=== PATIENT | female | born 1995 | race Caucasian/White ===

== ENCOUNTER 2023-01-18 12:33 | Inpatient (IN) | payer OTHER, SELFPAY ==
[2023-01-18] VITALS (19 sets, daily range): BP systolic 95–158; BP diastolic 60–79; PULSE 69–98; RESP 16–28; TEMP 36.2–36.7
--- NOTE | 2023-01-18 13:09 | PM.OBPRCVD ---
Procedure events: Meconium Stained Fluid Intrapartal events: Precipitous Labor < 3 hours Induction method: none Delivery augmentation: rupture of membranes (none, membranes ruptured at plus three station revealing meconium stained fluid not particulate) Delivery monitor: external FHT and external uterine Route of delivery: Episiotomy Description: none Laceration description: none Estimated blood loss (mL): 300 Disposition: no change Complications: Fourth baby. Dr. Osuna had patient scheduled for induction this upcoming . States she started contractions at about six am. When she presented to ED she was rushed up to maternity with concern she was delivering. Her initial cervical exam was 6 cm. Patient was experiencing excruciating contractions every 1 to 2 min. She progressed to complete dilation and delivery without epidural in less than 20 min. The infant girl was crying on delivery. She appears to be SGA and there is thick meconium. Peds was called in to evaluate however no acute problem existed. GBS status is not known. Peds to make decision on disposition of infant whose weight is 4 pounds 12 ounces. The placenta has been sent to pathology. The chart has been sent from Dr. Osuna's office. Delivery date: 01/18/23 Gender: female presentation: vertex Placental delivery description: Spontaneous cord description comment: small placenta and thin umbilical cord heart rate - 1 minute: 100 bpm or Greater (APGARS PENDING NURSING EVALUATION HOWEVER INFANT VIGOROUS AND PEDS PRESENT) respiratory effort - 1 minute: Spontaneous/Strong Cry muscle tone - 1 minute: Active Movement reflex response - 1 minute: Prompt Response color - 1 minute: Bluish Hands or Feet total score - 1 minute: 9
[2023-01-18 13:21] LABS: Hematocrit 36.9 % (36.0-48.0); Hemoglobin 12.7 g/dL (12.0-16.0); Mean Corpuscular HGB Conc 34.4 g/dL (29.9-35.2); Mean Corpuscular Hemoglobin 30.5 pg (26.7-34.0); Mean Corpuscular Volume 88.5 fL (81.0-99.0); Platelet Count 305 10^3/uL (150-450); Red Blood Count 4.17 10^6/uL (4.20-5.40); Red Cell Distribution Width 12.9 % (11.0-15.0); White Blood Count 16.9 10^3/uL (4.0-11.0)
--- NOTE | 2023-01-18 13:34 | P.HP_ITS ---
H&P: HPI History of Present Illness Chief complaint: CONTRACTIONS Narrative: ...Dr. Osuna patient. Was to be induced this coming week. presented to ED and delivered within 30 minutes on maternity. Went from initial exam of 6 cm to complete dilation plus two station in less than 20 min. Vertex. AROM on d elivery for thick meconium. Initial heart rate 130's. Review of Systems ROS Status of ROS 10 or more systems reviewed and unremarkable except as noted in history and below Meds Home Medications and Allergies Allergies Allergy/AdvReac Type Severity Reaction Status Date / Time No Known Drug Allergies Allergy Verified 01/18/23 13:37 Exam Constitutional Vital Signs - 24 hr 01/18/23 12:43 01/18/23 13:06 01/18/23 13:22 Pulse Rate 94 H 97 H 74 Blood Pressure 138/76 H 158/77 H 121/60 H Documenting provider has reviewed patient's vital signs: yes Common normals: average body habitus, oriented x3, healthy appearing, alert and well nourished General appearance: in distress (precipitous delivery with no time for epidural ) severe HENMT Common normals: normocephalic and head/scalp atraumatic Eye Common normals: PERRL Chest Common normals: inspection of chest normal Respiratory Common normals: normal respiratory effort Cardio Common normals: regular rate and regular rhythm GI Common normals: soft to palpation and non-tender External Female Exam: normal appearance of the urethra Speculum exam - cervix: cervical os open OB/external & speculum: external exam normal Manual OB Exam: dilated 6 cm, effaced 75% and station +1 Amniotic Fluid: no fluid (but AROM for thick meconium) Back & Pelvis Common normals: no CVA tenderness Extremity Common normals: normal to inspection and full ROM Neuro Common normals: oriented x3, CN's II-XII intact bilaterally, moves all extremities, no focal motor deficits and no sensory deficits noted Sensorium/orientation: awake, alert, oriented to person, oriented to place and oriented to time Speech: speech normal Psych Common normals: mental status grossly normal and thought process normal Results Labs Labs: Short CBC 01/18/23 Range/Units 12:50 WBC 16.9 H (4.0-11.0) 10^3/uL Hgb 12.7 (12.0-16.0) g/dL Hct 36.9 (36.0-48.0) % Plt Count 305 (150-450) 10^3/uL Procedures Procedure Note Date of procedure: 01/18/23 Pre-op diagnosis: term in labor
[2023-01-18 14:00] LABS: Basophils Percent Auto 0.3 % (0.2-2.0); Eosinophils Absolute Auto 0.1 10^3/uL (0.0-0.7); Eosinophils Percent Auto 0.3 % (0.9-7.0); Hematocrit 33.4 % (36.0-48.0); Hemoglobin 11.3 g/dL (12.0-16.0); Immature Granulocytes Abs Auto 0.12 10^3/uL (0.00-0.03); Immature Granulocytes Pct Auto 0.8 % (0.0-0.5); Lymphocytes Absolute Auto 1.3 10^3/uL (1.2-3.8); Lymphocytes Percent Auto 8.3 % (20.5-60.0); Mean Corpuscular HGB Conc 33.8 g/dL (29.9-35.2); Mean Corpuscular Hemoglobin 30.1 pg (26.7-34.0); Mean Corpuscular Volume 89.1 fL (81.0-99.0); Mean Platelet Volume 9.6 fL (9.5-13.5); Monocytes Absolute Auto 0.5 10^3/uL (0.3-0.8); Monocytes Percent Auto 3.1 % (1.7-12.0); Neutrophils Absolute Auto 13.3 10^3/uL (1.4-6.5); Neutrophils Percent Auto 87.2 % (43.0-75.0); Platelet Count 239 10^3/uL (150-450); Red Blood Count 3.75 10^6/uL (4.20-5.40); Red Cell Distribution Width 12.9 % (11.0-15.0); White Blood Count 15.3 10^3/uL (4.0-11.0)
[2023-01-18] MEDS: IBUPROFEN 600 MG TABLET PO (14:37)
--- NOTE | 2023-01-18 14:40 | PC.NURSE ---
MEDICATED WITH MOTRIN 600 MG OFR BACK PAIN 6 SCORE
--- NOTE | 2023-01-18 19:22 | W.PC.ACHO ---
Registration Status: ADM IN Primary Language: Pakistani Preferred Language: Pakistani Active Medications Generic Name Dose Route Start Last Admin Trade Name Freq PRN Reason Stop Dose Admin Acetaminophen 650 mg 01/18/23 13:26 Acetaminophen 325 Mg Tablet PO Q6H PRN Mild Pain Al Hydroxide/Mg Hydroxide 2,400 mg 01/18/23 13:31 Magnesium Hydroxide 2,400 Mg/10 Ml Oral.Susp PO Q6H PRN Dyspepsia Benzocaine/Menthol 1 applic 01/18/23 13:26 Benzocaine/Menthol 85 Gram Bottle TOPICAL ONCE PRN Pain Carboprost Tromethamine 250 mcg 01/18/23 13:08 Carboprost Tromethamine 250 Mcg/Ml 1 Ml Vial IM Q15M PRN Bleeding Docusate Sodium 100 mg 01/19/23 09:00 Docusate Sodium 100 Mg Capsule PO BID BEN Oxytocin 10 unit/ Sodium 501 mls @ 6.012 mls/hr 01/18/23 13:15 Chloride IV Q24H BEN 2 MILLIUNIT/MIN Oxytocin 20 unit/ Sodium 1,002 mls @ 125 mls/hr 01/18/23 13:15 01/18/23 14:12 Chloride IV 01/18/23 21:15 1 ml/hr ONCE ONE 1 mls/hr Administration Protocol Ibuprofen 600 mg 01/18/23 13:26 01/18/23 14:37 Ibuprofen 600 Mg Tablet PO 600 mg Q6H PRN Administration Moderate Pain Methylergonovine Maleate 0.2 mg 01/18/23 13:08 Methylergonovine Maleate 0.2 Mg Tablet PO Q4H PRN Uterine Contractility/Contract Misoprostol 600 mcg 01/18/23 13:08 Misoprostol 100 Mcg Tablet PO ONCE PRN Uterine Bleeding Misoprostol 800 mcg 01/18/23 13:08 Misoprostol 100 Mcg Tablet SL ONCE PRN Uterine Bleeding Misoprostol 1,000 mcg 01/18/23 13:08 Misoprostol 100 Mcg Tablet DC ONCE PRN Uterine Bleeding Nalbuphine HCl 10 mg 01/18/23 13:08 Nalbuphine Hcl 10 Mg/Ml Ampule IV Q3H PRN Pain Ondansetron HCl 4 mg 01/18/23 13:08 Ondansetron Pf 4 Mg/2 Ml Vial IV Q6H PRN Nausea And Vomiting Ondansetron HCl 4 mg 01/18/23 13:08 Ondansetron 4 Mg Rapdis Tablet SL Q6H PRN Nausea And Vomiting Oxytocin 10 unit 01/18/23 13:08 Oxytocin 100 Unit/10 Ml Vial IM ONCE PRN Uterine Bleeding Senna 17.2 mg 01/18/23 20:00 Sennosides 8.6 Mg Tablet PO QHS PRN Constipation Simethicone 80 mg 01/18/23 13:31 Simethicone 80 Mg Tab.Chew PO QID PRN Abdominal Distention Temazepam 15 mg 01/18/23 20:00 Temazepam 15 Mg Capsule PO BEDTIME PRN Sleep Witch Keyla/Glycerin 1 each 01/18/23 13:26 Glycerin/Witch Keyla 1 Each Jar TOPICAL ONCE PRN Pain Diet Category Date Time Status Regular Consistency Diet Diet 01/18/23 Lunch Active IV Insertion/Site Date of IV Line Insertion [20g 01/18/23 left Wrist] IV Insertion Time [20g left 12:50 Wrist] Neurology Patient orientation (short person,place,time,situation list) Sugey coma scale total score 15 Respiratory Oxygen Delivery Method Room Air
[2023-01-18 19:29] LABS: Amphetamine Screen Urine NEGATIVE (NEGATIVE); Barbiturates Screen Urine NEGATIVE (NEGATIVE); Benzodiazepines Screen Urine NEGATIVE (NEGATIVE); Buprenorphine Screen Urine NEGATIVE (NEGATIVE); Cannabinoid Screen Urine NEGATIVE (NEGATIVE); Cocaine Screen Urine NEGATIVE (NEGATIVE); Methadone Screen Urine NEGATIVE (NEGATIVE); Methamphetamines Screen Urine NEGATIVE (NEGATIVE); Opiate Screen Urine NEGATIVE (NEGATIVE); Oxycodone Screen Urine NEGATIVE (NEGATIVE); Phencyclidine Screen Urine NEGATIVE (NEGATIVE); Tricyclic Antidepressant Urine NEGATIVE (NEGATIVE)
--- NOTE | 2023-01-18 19:30 | W.PC.ACHO ---
Registration Status: ADM IN Primary Language: Chadian Preferred Language: Chadian Report received from Merissa MELENDEZ. bedside report completed. Active Medications Generic Name Dose Route Start Last Admin Trade Name Freq PRN Reason Stop Dose Admin Acetaminophen 650 mg 01/18/23 13:26 Acetaminophen 325 Mg Tablet PO Q6H PRN Mild Pain Al Hydroxide/Mg Hydroxide 2,400 mg 01/18/23 13:31 Magnesium Hydroxide 2,400 Mg/10 Ml Oral.Susp PO Q6H PRN Dyspepsia Benzocaine/Menthol 1 applic 01/18/23 13:26 Benzocaine/Menthol 85 Gram Bottle TOPICAL ONCE PRN Pain Carboprost Tromethamine 250 mcg 01/18/23 13:08 Carboprost Tromethamine 250 Mcg/Ml 1 Ml Vial IM Q15M PRN Bleeding Docusate Sodium 100 mg 01/19/23 09:00 Docusate Sodium 100 Mg Capsule PO BID BEN Oxytocin 10 unit/ Sodium 501 mls @ 6.012 mls/hr 01/18/23 13:15 Chloride IV Q24H BEN 2 MILLIUNIT/MIN Oxytocin 20 unit/ Sodium 1,002 mls @ 125 mls/hr 01/18/23 13:15 01/18/23 14:12 Chloride IV 01/18/23 21:15 1 ml/hr ONCE ONE 1 mls/hr Administration Protocol Ibuprofen 600 mg 01/18/23 13:26 01/18/23 14:37 Ibuprofen 600 Mg Tablet PO 600 mg Q6H PRN Administration Moderate Pain Methylergonovine Maleate 0.2 mg 01/18/23 13:08 Methylergonovine Maleate 0.2 Mg Tablet PO Q4H PRN Uterine Contractility/Contract Misoprostol 600 mcg 01/18/23 13:08 Misoprostol 100 Mcg Tablet PO ONCE PRN Uterine Bleeding Misoprostol 800 mcg 01/18/23 13:08 Misoprostol 100 Mcg Tablet SL ONCE PRN Uterine Bleeding Misoprostol 1,000 mcg 01/18/23 13:08 Misoprostol 100 Mcg Tablet PA ONCE PRN Uterine Bleeding Nalbuphine HCl 10 mg 01/18/23 13:08 Nalbuphine Hcl 10 Mg/Ml Ampule IV Q3H PRN Pain Ondansetron HCl 4 mg 01/18/23 13:08 Ondansetron Pf 4 Mg/2 Ml Vial IV Q6H PRN Nausea And Vomiting Ondansetron HCl 4 mg 06/09/23 13:08 Ondansetron 4 Mg Rapdis Tablet SL Q6H PRN Nausea And Vomiting Oxytocin 10 unit 01/18/23 13:08 Oxytocin 100 Unit/10 Ml Vial IM ONCE PRN Uterine Bleeding Senna 17.2 mg 01/18/23 20:00 Sennosides 8.6 Mg Tablet PO QHS PRN Constipation Simethicone 80 mg 01/18/23 13:31 Simethicone 80 Mg Tab.Chew PO QID PRN Abdominal Distention Temazepam 15 mg 01/18/23 20:00 Temazepam 15 Mg Capsule PO BEDTIME PRN Sleep Witch Keyal/Glycerin 1 each 01/18/23 13:26 Glycerin/Witch Keyla 1 Each Jar TOPICAL ONCE PRN Pain Diet Category Date Time Status Regular Consistency Diet Diet 01/18/23 Lunch Active IV Insertion/Site Date of IV Line Insertion [20g 01/18/23 left Wrist] IV Insertion Time [20g left 12:50 Wrist] Neurology Patient orientation (short person,place,time,situation list) [place]or coma scale total score 15 Respiratory Oxygen Delivery Method Room Air
--- NOTE | 2023-01-18 21:10 | PC.NURSE ---
Pt states her bleeding is compared to a heavy period .
[2023-01-19 00:07] VITALS: BP 105/52; PULSE 78
[2023-01-19 00:10] VITALS: BP 105/52; PULSE 78; RESP 16; TEMP 36.2
--- NOTE | 2023-01-19 00:21 | PC.NURSE ---
Pt express no pain present. Pt denies needs for interventions.
[2023-01-19 04:40] VITALS: BP 102/61; PULSE 63; RESP 14; TEMP 36
[2023-01-19 04:52] VITALS: BP 102/61; PULSE 63
[2023-01-19 06:35] LABS: Basophils Absolute Auto 0.1 10^3/uL (0.0-0.1); Basophils Percent Auto 0.5 % (0.2-2.0); Eosinophils Absolute Auto 0.3 10^3/uL (0.0-0.7); Eosinophils Percent Auto 2.2 % (0.9-7.0); Hematocrit 27.1 % (36.0-48.0); Hemoglobin 9.3 g/dL (12.0-16.0); Immature Granulocytes Pct Auto 0.8 % (0.0-0.5); Lymphocytes Absolute Auto 3.2 10^3/uL (1.2-3.8); Lymphocytes Percent Auto 24.7 % (20.5-60.0); Mean Corpuscular HGB Conc 34.3 g/dL (29.9-35.2); Mean Corpuscular Hemoglobin 30.7 pg (26.7-34.0); Mean Corpuscular Volume 89.4 fL (81.0-99.0); Mean Platelet Volume 9.9 fL (9.5-13.5); Monocytes Absolute Auto 0.8 10^3/uL (0.3-0.8); Monocytes Percent Auto 6.6 % (1.7-12.0); Neutrophils Absolute Auto 8.3 10^3/uL (1.4-6.5); Neutrophils Percent Auto 65.2 % (43.0-75.0); Platelet Count 215 10^3/uL (150-450); Red Blood Count 3.03 10^6/uL (4.20-5.40); Red Cell Distribution Width 13.1 % (11.0-15.0); White Blood Count 12.7 10^3/uL (4.0-11.0)
--- NOTE | 2023-01-19 07:12 | W.PC.ACHO ---
Registration Status: ADM IN Primary Language: Prydeinig Preferred Language: Prydeinig Report given to Yumiko Hess RN at 0705. Active Medications Generic Name Dose Route Start Last Admin Trade Name Freq PRN Reason Stop Dose Admin Acetaminophen 650 mg 01/18/23 13:26 Acetaminophen 325 Mg Tablet PO Q6H PRN Mild Pain Al Hydroxide/Mg Hydroxide 2,400 mg 01/18/23 13:31 Magnesium Hydroxide 2,400 Mg/10 Ml Oral.Susp PO Q6H PRN Dyspepsia Benzocaine/Menthol 1 applic 01/18/23 13:26 Benzocaine/Menthol 85 Gram Bottle TOPICAL ONCE PRN Pain Carboprost Tromethamine 250 mcg 01/18/23 13:08 Carboprost Tromethamine 250 Mcg/Ml 1 Ml Vial IM Q15M PRN Bleeding Celecoxib 40 mg 01/19/23 07:00 Citalopram Hydrobromide 20 Mg Tablet PO QD BEN Docusate Sodium 100 mg 01/19/23 09:00 Docusate Sodium 100 Mg Capsule PO BID BEN Oxytocin 10 unit/ Sodium 501 mls @ 6.012 mls/hr 01/18/23 13:15 Chloride IV Q24H BEN 2 MILLIUNIT/MIN Ibuprofen 600 mg 01/18/23 13:26 01/18/23 14:37 Ibuprofen 600 Mg Tablet PO 600 mg Q6H PRN Administration Moderate Pain Methylergonovine Maleate 0.2 mg 01/18/23 13:08 Methylergonovine Maleate 0.2 Mg Tablet PO Q4H PRN Uterine Contractility/Contract Misoprostol 600 mcg 01/18/23 13:08 Misoprostol 100 Mcg Tablet PO ONCE PRN Uterine Bleeding Misoprostol 800 mcg 01/18/23 13:08 Misoprostol 100 Mcg Tablet SL ONCE PRN Uterine Bleeding Misoprostol 1,000 mcg 01/18/23 13:08 Misoprostol 100 Mcg Tablet MN ONCE PRN Uterine Bleeding Nalbuphine HCl 10 mg 01/18/23 13:08 Nalbuphine Hcl 10 Mg/Ml Ampule IV Q3H PRN Pain Ondansetron HCl 4 mg 01/18/23 13:08 Ondansetron Pf 4 Mg/2 Ml Vial IV Q6H PRN Nausea And Vomiting Ondansetron HCl 4 mg 01/18/23 13:08 Ondansetron 4 Mg Rapdis Tablet SL Q6H PRN Nausea And Vomiting Oxytocin 10 unit 01/18/23 13:08 Oxytocin 100 Unit/10 Ml Vial IM ONCE PRN Uterine Bleeding Senna 17.2 mg 01/18/23 20:00 Sennosides 8.6 Mg Tablet PO QHS PRN Constipation Simethicone 80 mg 01/18/23 13:31 Simethicone 80 Mg Tab.Chew PO QID PRN Abdominal Distention Temazepam 15 mg 01/18/23 20:00 Temazepam 15 Mg Capsule PO BEDTIME PRN Sleep Witch Keyla/Glycerin 1 each 01/18/23 13:26 Glycerin/Witch Keyla 1 Each Jar TOPICAL ONCE PRN Pain Diet Category Date Time Status Regular Consistency Diet Diet 01/18/23 Lunch Active IV Insertion/Site Date of IV Line Insertion [20g 01/18/23 left Wrist] IV Insertion Time [20g left 12:50 Wrist] Neurology Patient orientation (short person,place,time,situation list) Patient orientation (short person,place,time,situation list) Patient orientation (short person,place,time,situation list) Patient orientation (short person,place,time,situation list) Jenner coma scale total score 15 Respiratory Oxygen Delivery Method Room Air Oxygen Delivery Method Room Air Oxygen Delivery Method Room Air Cardiology Heart Sounds Strong,Regular Heart Sounds Strong,Regular Heart Sounds Strong,Regular Bowels Bowel Pattern No Bowel Movement Bowel Pattern No Bowel Movement Bowel Pattern No Bowel Movement
[2023-01-19 08:09] VITALS: BP 115/58; PULSE 71
[2023-01-19] MEDS: DOCUSATE SODIUM 100 MG CAPSULE PO (08:17)
[2023-01-19] MEDS: CITALOPRAM HYDROBROMIDE 20 MG TABLET 40 MG PO (08:17)
--- NOTE | 2023-01-19 11:37 | P.OBPN_ITS ---
PATIENT IS A SMOKER WHICH IS LIKELY WHY SHE IS REQUESTING DISCHARGE POD 1 EVEN THOUGH GIRL NOT READY FOR DISCHARGE OB - PN: Subj Subjective Interval history: S/P PRECIPITOUS VAGINAL DELIVERY WITHOUT COMPLICATION Patient comments: no complaints, tolerating diet and flatus present status: doing well and bottle Exam Constitutional Vital Signs - 24 hr 01/18/23 12:43 01/18/23 13:06 01/18/23 13:22 Temperature Pulse Rate 94 H 97 H 74 Respiratory Rate Blood Pressure 138/76 H 158/77 H 121/60 H Blood Pressure [Left Arm] Oxygen Delivery Method 01/18/23 13:38 01/18/23 13:52 01/18/23 14:07 Temperature Pulse Rate 78 90 74 Respiratory Rate Blood Pressure 108/63 106/67 106/65 Blood Pressure [Left Arm] Oxygen Delivery Method 01/18/23 14:22 01/18/23 14:37 01/18/23 14:52 Temperature Pulse Rate 75 75 73 Respiratory Rate Blood Pressure 121/72 H 125/77 H 123/75 H Blood Pressure [Left Arm] Oxygen Delivery Method 01/18/23 15:07 01/18/23 15:22 01/18/23 15:37 Temperature Pulse Rate 69 70 85 Respiratory Rate Blood Pressure 125/79 H 106/65 106/61 Blood Pressure [Left Arm] Oxygen Delivery Method 01/18/23 15:52 01/18/23 16:07 01/18/23 21:01 Temperature Pulse Rate 73 90 83 Respiratory Rate Blood Pressure 115/61 112/68 95/62 Blood Pressure [Left Arm] Oxygen Delivery Method 01/19/23 00:07 01/18/23 14:15 01/18/23 12:33 Temperature 98.0 F 97.9 F Pulse Rate 78 98 H Respiratory Rate 26 H 26 H Blood Pressure 105/52 L Blood Pressure [Left Arm] Oxygen Delivery Method Room Air 01/18/23 13:15 01/18/23 20:45 01/18/23 20:45 Temperature 97.9 F 97.2 F L Pulse Rate 83 Respiratory Rate 28 H 16 16 Blood Pressure Blood Pressure [Left Arm] 95/62 Oxygen Delivery Method 01/19/23 00:10 01/19/23 00:10 01/19/23 04:52 Temperature 97.2 F L Pulse Rate 78 63 Respiratory Rate 16 16 Blood Pressure 102/61 Blood Pressure [Left Arm] 105/52 L Oxygen Delivery Method Room Air 01/19/23 08:09 01/19/23 04:40 01/19/23 04:40 Temperature 96.8 F L Pulse Rate 71 63 Respiratory Rate 14 14 Blood Pressure 115/58 L Blood Pressure [Left Arm] 102/61 Oxygen Delivery Method Room Air Documenting provider has reviewed patient's vital signs: yes Common normals: no apparent distress, oriented x3, no limitations, healthy appearing, alert and well nourished General appearance: cooperative and comfortable HENMT Common normals: normocephalic and head/scalp atraumatic Eye Common normals: PERRL and conjunctivae normal Neck & C-Spine Common normals: full ROM and supple Chest Common normals: inspection of chest normal Respiratory Common normals: normal respiratory effort Cardio Common normals: regular rate and regular rhythm GI Common normals: Normal to inspection, nondistended, normoactive bowel sounds present and soft to palpation Common normals: no CVA tenderness and external appearance normal Manual OB Exam: deferred Extremity Common normals: normal to inspection and full ROM Neuro Common normals: oriented x3, CN's II-XII intact bilaterally, no focal motor deficits and no sensory deficits noted Psych Common normals: mental status grossly normal, thought process normal, cooperative and affect normal Results Labs Labs: Short CBC 01/18/23 01/18/23 01/19/23 Range/Units 12:50 13:54 06:20 WBC 16.9 H 15.3 H 12.7 H (4.0-11.0) 10^3/uL Hgb 12.7 11.3 L 9.3 L (12.0-16.0) g/dL Hct 36.9 33.4 L 27.1 L (36.0-48.0) % Plt Count 305 239 215 (150-450) 10^3/uL Additional Findings Additional findings: NA OB - PN: A/P Assessment and Plan (1) Vaginal delivery: Plan S/P PRECIPITOUS DELIVERY OF SGA BABY AT TERM. NO PREINEAL LACERATION. BABY DOING WELL. BOTTLE FEEDING. NORMAL LOCHIA. EATING, AMBULATING AND ELIMINATING NORMALLY. OFFERRING NO COMPLAINTS. NEEDS TO WEAR SPORTS BRA / TO PREVENT MILK FROM COMING IN. ROUTINE POST CARE. Plan - Vaginal Delivery day: 1 Plan: routine care, discharge home and follow up 6 weeks Comment: S/P PRECIPITOUS VAGINAL DELIVERY, NO COMPLICATIONS Time Spent with Patient Time: Total time spent is greater than 50% in coordination of care (as documented) at patient's floor/unit and/or counseling patient: Total time spent with greater than 50% in coordination of care (as documented) at patient's floor/unit and/or counseling patient: less than 15 minutes Assessment and Plan (1) Vaginal delivery: Plan S/P PRECIPITOUS DELIVERY OF SGA BABY AT TERM. NO PREINEAL LACERATION. BABY DOING WELL. BOTTLE FEEDING. NORMAL LOCHIA. EATING, AMBULATING AND ELIMINATING NORMALLY. OFFERRING NO COMPLAINTS. NEEDS TO WEAR SPORTS BRA 04/03 TO PREVENT MILK FROM COMING IN. ROUTINE POST CARE. Additional Plan Induction method: none Plan: other (REQUESTS DISCHARGE)
--- NOTE | 2023-01-19 12:12 | P.DS_ITS ---
DS: Providers Provider Date of admission: 01/18/23 12:33 Primary care physician: Non-Staff Physician, Admitting clinician: Faviola Neal Attending physician on admission: Faviola Neal Attending physician on discharge: Faviola Neal Discharging clinician: Faviola Neal Anticipated date of discharge: 01/19/23 DS: Diagnosis Discharge Diagnosis (1) Labor abnormality, antepartum: Assessment and plan: PRESENTED TO MATERNITY AT 6 CM AND DELIVERED PRECIPITOUSLY WITHIN THE NEXT 20 MINUTES AT TERM OF SGA BABY FEMALE DOING WELL Plan PATIENT REQUESTING TO BE DISCHARGED, (SMOKER) EVEN THOUGH BABY NOT READY FOR DISCHARGE DS: Summary Hospital Course Hospital Course: UNCOMPLICATED Time spent discussing smoking cessation with patient: 3 to 10 minutes Status at Discharge Cognitive/behavioral status at discharge: NORMAL UNDERSTANDING, ALL QUESTIONS ANSWERED WITH UNDERSTANDING Functional status at discharge: independent ambulation Time Spent with Patient Time attestation: Total time spent providing and/or coordinating discharge services: Time spent: less than 30 minutes Specific discharge activities: PELVIC REST FOR SIX WEEKS, WALKING ONLY FORM OF EXERCISE FOR SIX WEEKS, CALL FOR PROBLEM OR CONCERN, NO SCIPTS NEEDED, AWARE OF HAZARDS OF TOBACCO USE, SPORTS BRA ON 04/03 SO MILK DOES NOT COME IN, SCHEDULE POST EXAM FOR SIX WEEKS FROM DELIVERY Exam Narrative Exam Narrative: S/P UNCOMPLICATED PRECIPITOUS VAGINAL DELIVERY WITHOUT COMPLICATION Constitutional Vital Signs - 24 hr 01/18/23 12:43 01/18/23 13:06 01/18/23 13:22 Temperature Pulse Rate 94 H 97 H 74 Respiratory Rate Blood Pressure 138/76 H 158/77 H 121/60 H Blood Pressure [Left Arm] Oxygen Delivery Method 01/18/23 13:38 01/18/23 13:52 01/18/23 14:07 Temperature Pulse Rate 78 90 74 Respiratory Rate Blood Pressure 108/63 106/67 106/65 Blood Pressure [Left Arm] Oxygen Delivery Method 01/18/23 14:22 01/18/23 14:37 01/18/23 14:52 Temperature Pulse Rate 75 75 73 Respiratory Rate Blood Pressure 121/72 H 125/77 H 123/75 H Blood Pressure [Left Arm] Oxygen Delivery Method 01/18/23 15:07 01/18/23 15:22 01/18/23 15:37 Temperature Pulse Rate 69 70 85 Respiratory Rate Blood Pressure 125/79 H 106/65 106/61 Blood Pressure [Left Arm] Oxygen Delivery Method 01/18/23 15:52 01/18/23 16:07 01/18/23 21:01 Temperature Pulse Rate 73 90 83 Respiratory Rate Blood Pressure 115/61 112/68 95/62 Blood Pressure [Left Arm] Oxygen Delivery Method 01/19/23 00:07 01/18/23 14:15 01/18/23 12:33 Temperature 98.0 F 97.9 F Pulse Rate 78 98 H Respiratory Rate 26 H 26 H Blood Pressure 105/52 L Blood Pressure [Left Arm] Oxygen Delivery Method Room Air 01/18/23 13:15 01/18/23 20:45 01/18/23 20:45 Temperature 97.9 F 97.2 F L Pulse Rate 83 Respiratory Rate 28 H 16 16 Blood Pressure Blood Pressure [Left Arm] 95/62 Oxygen Delivery Method 01/19/23 00:10 01/19/23 00:10 01/19/23 04:52 Temperature 97.2 F L Pulse Rate 78 63 Respiratory Rate 16 16 Blood Pressure 102/61 Blood Pressure [Left Arm] 105/52 L Oxygen Delivery Method Room Air 01/19/23 08:09 01/19/23 04:40 01/19/23 04:40 Temperature 96.8 F L Pulse Rate 71 63 Respiratory Rate 14 14 Blood Pressure 115/58 L Blood Pressure [Left Arm] 102/61 Oxygen Delivery Method Room Air Documenting provider has reviewed patient's vital signs: yes Common normals: no apparent distress, oriented x3, no limitations, healthy appearing, alert and well nourished General appearance: cooperative and comfortable Orientation/consciousness: Yes oriented to person [facility] Common normals: normocephalic and head/scalp atraumatic Eye Common normals: PERRL Neck & C-Spine Common normals: full ROM and supple Chest Common normals: inspection of chest normal Respiratory Common normals: normal respiratory effort Cardio Common normals: regular rate and regular rhythm GI Common normals: Normal to inspection, nondistended, normoactive bowel sounds present, soft to palpation and non-tender Common normals: no CVA tenderness and external appearance normal OB/external & speculum: deferred Manual OB Exam: deferred Back & Pelvis Common normals: no CVA tenderness Extremity Common normals: normal to inspection and full ROM Neuro Common normals: oriented x3 and CN's II-XII intact bilaterally Sensorium/orientation: awake, alert, oriented to person, oriented to place and oriented to time Psych Common normals: mental status grossly normal, thought process normal, cooperative, affect normal and speech normal Attitude: calm DS: Data Data Completed and Pending Completed studies during hospitalization: NA Pending studies at discharge: NA Labs on day of discharge: Labs from last 24 hours 01/19/23 01/18/23 01/18/23 06:20 18:20 13:54 WBC 12.7 H 15.3 H RBC 3.03 L 3.75 L Hgb 9.3 L 11.3 L Hct 27.1 L 33.4 L MCV 89.4 89.1 MCH 30.7 30.1 MCHC 34.3 33.8 RDW 13.1 12.9 Plt Count 215 239 MPV 9.9 9.6 Neut % (Auto) 65.2 87.2 H Lymph % (Auto) 24.7 8.3 L Morton % (Auto) 6.6 3.1 Eos % (Auto) 2.2 0.3 L Baso % (Auto) 0.5 0.3 Neut # (Auto) 8.3 H 13.3 H Lymph # (Auto) 3.2 1.3 Morton # (Auto) 0.8 0.5 Eos # (Auto) 0.3 0.1 Baso # (Auto) 0.1 0.0 Abs Immat Gran (auto) 0.10 H 0.12 H Imm/Tot Granulo (auto) 0.8 H 0.8 H Urine Opiates Screen Negative Ur Buprenorphine Scrn Negative Ur Oxycodone Screen Negative Urine Methadone Screen Negative Ur Propoxyphene Screen Negative Ur Barbiturates Screen Negative U Tricyclic Antidepress Negative Ur Phencyclidine Scrn Negative Ur Amphetamines Screen Negative U Methamphetamines Scrn Negative U Benzodiazepines Scrn Negative Urine Cocaine Screen Negative U Cannabinoids Screen Negative 01/18/23 12:50 WBC 16.9 H RBC 4.17 L Hgb 12.7 Hct 36.9 MCV 88.5 MCH 30.5 MCHC 34.4 RDW 12.9 Plt Count 305 MPV 10.0 Neut % (Auto) Lymph % (Auto) Morton % (Auto) Eos % (Auto) Baso % (Auto) Neut # (Auto) Lymph # (Auto) Morton # (Auto) Eos # (Auto) Baso # (Auto) Abs Immat Gran (auto) Imm/Tot Granulo (auto) Urine Opiates Screen Ur Buprenorphine Scrn Ur Oxycodone Screen Urine Methadone Screen Ur Propoxyphene Screen Ur Barbiturates Screen U Tricyclic Antidepress Ur Phencyclidine Scrn Ur Amphetamines Screen U Methamphetamines Scrn U Benzodiazepines Scrn Urine Cocaine Screen U Cannabinoids Screen Additional Comments Additional comments: NONE Discharge Plan Discharge Disposition: Home, Self-Care Condition: Good Assessment: S/P PRECIPITOUS VAGINAL DELIVERY WITHOUT COMPLICATION OR PERINEAL LAC FOR SGA FEMALE DOING WELL. ASKING TO BE DISCHARGED Health Concerns: NA Plan of Treatment: NA Discharge Medications: Continued citalopram 20 mg tablet 40 mg PO ONCE Discontinued [id number] 1 mg tablet 1 tab PO DAILY Forms: Portal Instructions
== END 2023-01-19 12:55 | disposition home or self-care (01) | DRG 560 ==
PROVIDERS: Admitting Provider Obstetrics & Gynecology; Visit Provider Obstetrics & Gynecology
DX: O62.3 Precipitate labor (principal); O99.334 Smoking (tobacco) complicating childbirth; F17.210 Nicotine dependence, cigarettes, uncomplicated; Z37.0 Single live birth; Z71.6 Tobacco abuse counseling; O77.0 Labor and delivery complicated by meconium in amniotic fluid; Z79.899 Other long term (current) drug therapy; Z3A.38 38 weeks gestation of pregnancy
CPT/HCPCS: 36415; 59050; 59410; 80307; 85025; 85027; 96374

== ENCOUNTER 2024-02-21 09:36 | Outpatient (OUT) | payer OTHER, SELFPAY ==
--- NOTE | 2024-02-21 09:37 | US_ITS ---
[address] [address] Patient Name: LEXIS OQUENDO MRN: [id number] date: 1995 Sex: F Assigned Patient Location: [facility] Current Patient Location: [facility] Accession/Order Number: [id number] Exam Date: 02/21/2024 09:38 Report Date: 02/21/2024 10:10 At the request of: ROD DELGADO Procedure: US OB transvaginal EXAMINATION: US OB transvaginal HISTORY: MISSED MENSES COMPARISON: No relevant comparison available. FINDINGS: Alvarez intrauterine gestation Gestational sac: 3.29 cm, 8 weeks 2 days CRL: 2.7 cm, 9 weeks 4 days Yolk sac: 5.6 mm Heart rate: 174 bpm The uterus is normal, anteverted, anteflexed The right ovary is normal measuring 3.2 x 1.9 x 3.1 cm. The left ovary contains a corpus luteal cyst. The cervix is closed measuring 4.7 cm in length Clinical age: 10 weeks 1 day Clinical DANIEL: 09/17/2024 Ultrasound age: 9 weeks 4 days Ultrasound DANIEL: 09/21/2024 US/US OB transvaginal IMPRESSION: Viable alvarez intrauterine gestation measuring 9 weeks 4 days Electronically authenticated by: DOROTHY MCCULLOUGH Date: 02/21/2024 10:10
== END 2024-02-21 09:37 | disposition home or self-care (01) ==
LOC: NOMS 09:37
PROVIDERS: Visit Provider Obstetrics & Gynecology
DX: Z34.91 Encounter for supervision of normal pregnancy, unspecified, first trimester (principal)
CPT/HCPCS: 76817

== ENCOUNTER 2024-03-20 13:09 | Outpatient (OUT) | payer OTHER, SELFPAY ==
[2024-03-20 13:53] LABS: Basophils Percent Auto 0.4 % (0.2-2.0); Eosinophils Absolute Auto 0.1 10^3/uL (0.0-0.7); Eosinophils Percent Auto 1.2 % (0.9-7.0); Hematocrit 40.5 % (36.0-48.0); Hemoglobin 13.9 g/dL (12.0-16.0); Immature Granulocytes Abs Auto 0.04 10^3/uL (0.00-0.03); Immature Granulocytes Pct Auto 0.4 % (0.0-0.5); Lymphocytes Absolute Auto 1.8 10^3/uL (1.2-3.8); Lymphocytes Percent Auto 16.1 % (20.5-60.0); Mean Corpuscular HGB Conc 34.3 g/dL (29.9-35.2); Mean Corpuscular Hemoglobin 31.5 pg (26.7-34.0); Mean Corpuscular Volume 91.8 fL (81.0-99.0); Mean Platelet Volume 10.4 fL (9.5-13.5); Monocytes Absolute Auto 0.4 10^3/uL (0.3-0.8); Monocytes Percent Auto 3.8 % (1.7-12.0); Neutrophils Absolute Auto 8.9 10^3/uL (1.4-6.5); Neutrophils Percent Auto 78.1 % (43.0-75.0); Platelet Count 250 10^3/uL (150-450); Red Blood Count 4.41 10^6/uL (4.20-5.40); Red Cell Distribution Width 12.4 % (11.0-15.0); White Blood Count 11.3 10^3/uL (4.0-11.0)
[2024-03-20 15:10] LABS: Estimated Average Glucose 94 mg/dL; Glycohemoglobin A1C 4.9 % (4.5-6.2)
[2024-03-21 06:10] LABS: HBsAg Screen Negative (Negative); HIV Ab/p24 Ag Screen Non Reactive (Non Reactive)
[2024-03-21 07:08] LABS: HCV Ab Non Reactive (Non Reactive)
[2024-03-21 08:12] LABS: Rubella Antibodies, IgG 1.61 index (Immune >0.99)
[2024-03-21 11:10] LABS: Rapid Plasma Reagin, Quant Non Reactive titer (NonRea<1:1)
== END 2024-03-20 13:10 | disposition home or self-care (01) ==
LOC: LAB 13:10
PROVIDERS: Visit Provider Obstetrics & Gynecology
DX: N92.6 Irregular menstruation, unspecified (principal); Z36.0 Encounter for antenatal screening for chromosomal anomalies
CPT/HCPCS: 36415; 83036; 85025; 86592; 86762; 86803; 86850; 86900; 86901; 87086; 87340; 87389

== ENCOUNTER 2024-04-16 19:17 | Outpatient (REF) | payer OTHER, SELFPAY ==
--- OUTSIDE RECORDS SUMMARY | 2024-04-16 19:21 | XMS_ITS | CCD ---
Author Organization [facility] Care Team Providers Care Range Master Name Role Phone DANNY ., DR VELASCO Admitting Unavailable DANNY ., DR VELASCO Attending Unavailable DANNY ., DR VELASCO Primary Care Unavailable DANNY ., DR VELASCO Consulting Unavailable DANNY ., DR VELASCO Admitting Unavailable DANNY ., DR VELASCO Attending Unavailable DANNY ., DR VELASCO Primary Care Unavailable DANNY ., DR VELASCO Consulting Unavailable DANNY ., DR VELASCO Admitting Unavailable DANNY ., DR VELASCO Attending Unavailable REQUEST, DR STORY LISTED Primary Care Unavaila ble [place], DR DOROTHY Garcia Consulting Unavailable DANNY ., DR VELASCO Consulting Unavailable DANNY ., DR VELASCO Admitting Unavailable DANNY ., DR VELASCO Attending Unavailable DANNY ., DR VELASCO Primary Care Unavailable DANNY ., DR VELASCO Consulting Unavailable DANNY ., DR VELASCO Admitting Unavailable DANNY ., DR VELASCO Attending Unavailable REQUEST, DR NONE LISTED Primary Care Unavaila ble DANNY ., DR VELASCO Consulting Unavailable ZIEBER, DR MARGAUX Sifuentes Consulting Unavailable KINGSLEY ., KILEY Consulting Unavailable ROD DELGADO Attending Unavailable ROD DELGADO Attending Unavailable ROD DELGADO R Referring Unavailable NO PCP, NO PCP Primary Care Unavailable ROD DELGADO R Referring Unavailable NO PCP, NO PCP Primary Care Unavailable Problems Problem Classification Problem Date Documented Date Episodic/Chronic Immunizations and screening for infectious disease (1 source) Encounter for screening for human papillomavirus (HPV); Translations: [ENC SCREENING HUMAN PAPILLOMAVIRUS] Onset: 09-01-2022 Episodic Menstrual disorders (6 sources) Irregular menstruation, unspecified; Translations: [IRREGULAR MENSTRUATION UNSPECIFIED] Onset: 07-20-2022 Chronic Other and delivery including normal (9 sources) Encounter for supervision of normal , unspecified, unspecified trimester; Translations: [Encounter for supervision of other normal , first trimester] Onset: 07-20-2022 Episodic Other screening for suspected conditions (not mental disorders or infectious disease) (4 sources) Encounter for screening for malignant neoplasm of cervix; Translations: [ENC SCREENING MALIG NEOPLASM CERV] Onset: 08-27-2022 Episodic Results Test Name Value Interpretation Reference Range Facility HCG.beta subunit IA 3rd IS Q non 01-24-2024 HCG.beta subunit Qn 7740 m[IU]/mL Normal Pr [facility] Comment on above: Result Comment: NEW REFERENCE RANGE WEEKS (SINCE LMP) MIU/mL 3 WEEKS 5 - 50 4 WEEKS 5 - 426 5 WEEKS 18 - 7,340 6 WEEKS 1,080 - 56,500 7-8 WEEKS 7,650 - 229,000 9-12 WEEKS 25,700 - 288,000 13-16 WEEKS 13,300 - 254,000 17-24 WEEKS 4,060 - 165,400 25-40 WEEKS 3,640 - 117,000 MALES AND NON- FEMALES - <5 MIU/mL This test has been FDA approved for use in only. Elevated levels are not necessarily diagnostic for trophoblastic or nontrophoblastic neoplasms. Performed By: #### 2 0415-6 #### [facility] ([id number]) [address], [address] [place] [address] US PREG ANATOMY SINGLEon US PREG ANATOMY SINGLE EXAMINATION: US PREG ANATOMY SINGLE HISTORY: Routine care COMPARISON: No relevant comparison available. TECHNIQUE: Transabdominal sonographic examination was performed for obstetrical and evaluation. FINDINGS: Number: 1 Heart Rate: 146.7 bpm H.B. /min Amniotic Fluid Volume: Subjectively normal Placental Location: Posterior with lower margin 1.8 cm from os. Cervix Length: 6.4 cm, closed. ANATOMY: Normal Structures -cerebellum, choroid plexus, cisterna magna, lateral cerebral ventricles, orbits, midline falx, hard palate, four-chamber heart, RVOT, LVOT, stomach, kidneys, bladder, umbilical cord insertion into abdomen, three-vessel cord, cervical spine, thoracic spine, lumbar spine, sacral spine, right upper extremity, left upper extremity, right lower extremity, left lower extremity. SUBOPTIMALLY SEEN: None ABNORMALITIES: None BIOMETRY: BPD: 6.2 cm 25 weeks 1 days HC: 23.4 cm 25 weeks 3 days AC: 19.7 cm 24 weeks 3 days FL: 4.4 cm 24 weeks 4 days EFW:710.0 grams; 15% FL/AC: 22.4 FL/BPD: 71.5 HC/AC: 1.2 GESTATIONAL AGE: Age by EDC: 25 weeks 2 days DANIEL by EDC: 01/31/2023 Age by current US: 24 weeks 6 days DANIEL by current US: 02/03/2023 IMPRESSION: 1. Single live intrauterine with growth detailed above. Electronically authenticated by: MARGAUX SANDERS Date: 2022-10-22 21:[address] [facility] CBC AUTO DIFFon 10-20-2022 BASO # 0.1 103/ul Normal 0.0-0.1 [facility] Comment on above: Performed By: #### C BC #### [facility] [address] [place] [address] Dr. Luis Edwards Basophils/100 WBC (Bld) 0.4 % Normal 0.2-2.[address] [facility] Comment on above: Performed By: #### C BC #### [facility] [address] [place] [address] Dr. Luis Edwards EO # 0.3 103/ul Normal 0.0-0.[address] [facility] Comment on above: Performed By: #### C BC #### [facility] [address] [place] [address] Dr. Luis Edwards Eosinophils/100 WBC (Bld) 1.7 % Normal 0.9-7.0 [facility] Comment on above: Performed By: #### C BC #### [facility] [address] [place] [address] Dr. Luis Edwards Erythrocyte distribution width (RBC) [Ratio] 13.1 % Normal 11.0-15.0 [facility] Comment on above: Performed By: #### C BC #### [facility] [address] [place] [address] Dr. Luis Edwards Hematocrit (Bld) [Volume fraction] 35.1 % Critically low 36.0-48.0 [facility] Comment on above: Performed By: #### C BC #### [facility] [address] [place] [address] Dr. Luis Edwards Hemoglobin (Bld) [Mass/Vol] 11.9 g/dL Critically low 12.0-16.0 [facility] Comment on above: Performed By: #### C BC #### [facility] [address] [place] [address] Dr. Luis Edwards IG # 0.17 10e3/ul Critically high 0.00-0.03 [facility] Comment on above: Performed By: #### C BC #### [facility] [address] [place] [address] Dr. Luis Edwards IG % 1.2 % Critically high 0.0-0.5 [facility] Comment on above: Performed By: #### C BC #### [facility] [address] [place] [address] Dr. Luis Edwards LYMPH # 2.3 103/ul Normal 1.2-3.8 [facility] Comment on above: Performed By: #### C BC #### [facility] [address] [place] [address] Dr. Luis Edwards Lymphocytes/100 WBC (Bld) 16.0 % Critically low 20.5-60.0 [facility] Comment on above: Performed By: #### C BC #### [facility] [address] [place] [address] Dr. Luis Edwards MANUAL DIFF REQ NO Normal [facility] Comment on above: Performed By: #### C BC #### [facility] [address] [place] [address] Dr. Luis Edwards MCH (RBC) [Entitic mass] 30.5 pg Normal 26.7-34.0 [facility] Comment on above: Performed By: #### C BC #### [facility] [address] [place] [address] Dr. Luis Edwards MCHC (RBC) [Mass/Vol] 33.9 g/dL Normal 29.9-35.2 [facility] Comment on above: Performed By: #### C BC #### [facility] [address] [place] [address] Dr. Luis Edwards MCV (RBC) [Entitic vol] 90.0 fL Normal 81.0-99.0 [facility] Comment on above: Performed By: #### C BC #### [facility] [address] [place] [address] Dr. Luis Edwards MONO # 0.6 103/ul Normal 0.3-0.8 [facility] Comment on above: Performed By: #### C BC #### [facility] [address] [place] [address] Dr. Luis Edwards Monocytes/100 WBC (Bld) 4.2 % Normal 1.7-12.0 [facility] Comment on above: Performed By: #### C BC #### [facility] [address] [place] [address] Dr. Luis Edwards NEUT # 11.2 103/ul Critically high 1.4-6.5 [facility] Comment on above: Performed By: #### C BC #### [facility] [address] [place] [address] Dr. Luis Edwards Neutrophils/100 WBC (Bld) 76.5 % Critically high 43.0-75.0 [facility] Comment on above: Performed By: #### C BC #### [facility] [address] [place] [address] Dr. Luis Edwards Platelet mean volume (Bld) [Entitic vol] 9.2 fL Critically low 9.5-13.5 [facility] Comment on above: Performed By: #### C BC #### [facility] [address] [place] [address] Dr. Luis Edwards PLT 247 103/ul Normal 150-450 [facility] Comment on above: Performed By: #### C BC #### [facility] [address] [address] [address] Luis Edwards RBC 3.90 106/ul Critically low 4.20-5.40 [facility] Comment on above: Performed By: #### C BC #### [facility] [address] [address] [address] Luis dEwards WBC 14.6 103/ul Critically high 4.0-11.0 [facility] Comment on above: Performed By: #### C BC #### [facility] [address] [place] [address] Dr. Luis Edwards GLUCOSE - 1HRon 10-20-2022 Glucose [Mass/Vol] 133 mg/dL Critically high 74-106 [facility] Comment on above: Performed By: #### C BC #### [facility] [address] [place] [address] Dr. Luis Edwards PAP ACOG PANEL 2: 21 to 29on 08-31-2022 . . Normal [facility] Comment on above: Performed By: #### 4 [id number] #### [facility] [address] [place] [address] Dr. Luis Edwards Age Gdln ACOG Testing - [facility] Comment on above: Performed By: #### 4 [id number] #### [facility] [address] [place] [address] Dr. Luis Edwards DIAGNOSIS: Comment Normal [facility] Comment on above: Result Comment: NEGA TIVE FOR INTRAEPITHELIAL LESION OR MALIGNANCY. PREDOMINANCE OF COCCOBACILLI CONSISTENT WITH SHIFT IN VAGINAL LUCRECIA IS PRESENT. Performed By: #### [id number] #### [facility] [address] [place] [address] Dr. Luis Edwards Methodology: Comment [facility] Comment on above: Result Comment: This liquid based ThinPrep(R) pap test was screened with the use of an image guided system. Performed By: #### 4 [id number] #### [facility] [address] [place] [address] Dr. Luis Edwards Note: Comment Normal [facility] Comment on above: Result Comment: The Pap smear is a screening test designed to aid in the detection of premalignant and malignant conditions of the uterine cervix. It is not a diagnostic procedure and should not be used as the sole means of detecting cervical cancer. Both false-positive and false-negative reports do occur. . Performed By: #### 4 [id number] #### [facility] [address] [place] [address] Dr. Luis Edwards Performed by: Comment Normal [facility] Comment on above: Result Comment: Braydon Munoz, Tax Consultant Performed By: #### [id number] #### [facility] [address] [place] [address] Dr. Luis Edwards Reflex Criteria: Comment Normal [facility] Comment on above: Result Comment: The HPV DNA reflex criteria were not met with this specimen result therefore, no HPV testing was performed. . Performed By: #### 4 [id number] #### [facility] [address] [place] [address] Dr. Luis Edwards Specimen adequacy: Comment Normal [facility] Comment on above: Result Comment: Sati sfactory for evaluation. No endocervical component is identified. Performed By: #### 4 [id number] #### [facility] [address] [place] [address] Dr. Luis Edwards CHLAMYDIA/GONOCOCCUS TIANNA (SW AB/URINE/PAPon 08-30-2022 Chlamydia trachomatis, TIANNA Negative Normal Negative [facility] Comment on above: Performed By: #### C T/NGNA #### [facility] [address] [place] [address] Dr. Luis Edwards Neisseria gonorrhoeae, TIANNA Negative Normal Negative [facility] Comment on above: Performed By: #### C T/NGNA #### [facility] [address] [place] [address] Dr. Luis Edwards VAGINITIS/VAGINOSIS DNA PROB Benjamin 08-29-2022 Viktoria species Negative Normal Negative [facility] Comment on above: Performed By: #### C BC #### [facility] [address] [address] [address] Luis Edwards Gardnerella vaginalis Positive Abnormal Negative [facility] Comment on above: Performed By: #### C BC #### [facility] [address] [place] [address] Dr. Luis Edwards Trichomonas vaginalis Negative Normal Negative [facility] Comment on above: Performed By: #### C BC #### [facility] [address] [place] [address] Dr. Luis Edwards HEPATITIS C VIRUS AB W/ REFL EX QUANTon 07-22-2022 HCV AB <0.1 Normal 0.0-0.9 [facility] Comment on above: Performed By: #### H CVPCRR #### [facility] [address] [place] [address] Dr. Luis Edwards Interpretation: Comment Normal [facility] Comment on above: Result Comment: Nega tive Not infected with HCV, unless recent infection is suspected or other evidence exists to indicate HCV infection. Performed By: #### H CVPCRR #### [facility] [address] [place] [address] Dr. Luis Edwards HEP B SURFACE ANTIGEN SCREEN on 07-21-2022 HBsAg Screen Negative Normal Negative [facility] Comment on above: Performed By: #### H BSANS #### [facility] [address] [place] [address] Dr. Luis Edwards HIV 1 AND 2 WITH REFLEXon HIV Screen 4th Generation wRfx Non-Reactive Normal Non Reactive [facility] Comment on above: Result Comment: HIV Negative HIV-1/HIV-2 antibodies and HIV-1 p24 antigen were NOT detected. There is no laboratory evidence of HIV infection. Performed By: #### C BC #### [facility] [address] [place] [address] Dr. Luis Edwards RPR QUANTon 07-21-2022 Rapid Plasma Reagin, Quant Non-Reactive Normal NonRea<1:[address] [facility] Comment on above: Result Comment: Plea se Note: This test does not meet current guidelines for screening and diagnosis of syphilis. This test is intended for following treatment response in patients being treated for syphilis infection. To screen for syphilis infection, a reflex cascade that includes both RPR and a treponema-specific assay should be utilized, such as Treponema pallidum (Syphilis) Screening [place] (171202) or Rapid Plasma Reagin (RPR) Test With Reflex to Quantitative RPR and Confirmatory Treponema pallidum Antibodies (697243). Performed By: #### R PRQ #### [facility] [address] [place] [address] Dr. Luis Edwards RUBELLA AB IGGon 07-21-2022 Rubella Antibodies, IgG 1.57 index Normal Immune >0.99 [facility] Comment on above: Result Comment: Non- immune <0.90 Equivocal 0.90 - 0.99 Immune >0.99 Performed By: #### R UBIGG #### [facility] [address] [place] [address] Dr. Luis Edwards CBC AUTO DIFFon 07-20-2022 BASO # 0.1 103/ul Normal 0.0-0.1 [facility] Comment on above: Performed By: #### C BC #### [facility] [address] [place] [address] Dr. Luis Edwards Basophils/100 WBC (Bld) 0.6 % Normal 0.2-2.0 [facility] Comment on above: Performed By: #### C BC #### [facility] [address] [place] [address] Dr. Luis Edwards EO # 0.2 103/ul Normal 0.0-0.[address] [facility] Comment on above: Performed By: #### C BC #### [facility] [address] [place] [address] Dr. Luis Edwards Eosinophils/100 WBC (Bld) 2.0 % Normal 0.9-7.[address] [facility] Comment on above: Performed By: #### C BC #### [facility] [address] [place] [address] Dr. Luis Edwards Erythrocyte distribution width (RBC) [Ratio] 13.6 % Normal 11.0-15.0 [facility] Comment on above: Performed By: #### C BC #### [facility] [address] [place] [address] Dr. Luis Edwards Hematocrit (Bld) [Volume fraction] 35.6 % Critically low 36.0-48.0 [facility] Comment on above: Performed By: #### C BC #### [facility] [address] [place] [address] Dr. Luis Edwards Hemoglobin (Bld) [Mass/Vol] 11.8 g/dL Critically low 12.0-16.0 [facility] Comment on above: Performed By: #### C BC #### [facility] [address] [place] [address] Dr. Luis Edwards IG # 0.03 10e3/ul Normal 0.00-0.03 [facility] Comment on above: Performed By: #### C BC #### [facility] [address] [place] [address] Dr. Luis Edwards IG % 0.3 % Normal 0.0-0.5 [facility] Comment on above: Performed By: #### C BC #### [facility] [address] [place] [address] Dr. Luis Edwards LYMPH # 1.9 103/ul Normal 1.2-3.8 [facility] Comment on above: Performed By: #### C BC #### [facility] [address] [place] [address] Dr. Luis Edwards Lymphocytes/100 WBC (Bld) 21.0 % Normal 20.5-60.0 [facility] Comment on above: Performed By: #### C BC #### [facility] [address] [place] [address] Dr. Luis Edwards MANUAL DIFF REQ NO Normal [facility] Comment on above: Performed By: #### C BC #### [facility] [address] [place] [address] Dr. Luis Edwards MCH (RBC) [Entitic mass] 28.7 pg Normal 26.7-34.0 [facility] Comment on above: Performed By: #### C BC #### [facility] [address] [address] [address] Luis Edwards MCHC (RBC) [Mass/Vol] 33.1 g/dL Normal 29.9-35.[address] [facility] Comment on above: Performed By: #### C BC #### [facility] [address] [place] [address] Dr. Luis Edwards MCV (RBC) [Entitic vol] 86.6 fL Normal 81.0-99.[address] [facility] Comment on above: Performed By: #### C BC #### [facility] [address] [place] [address] Dr. Luis Edwards MONO # 0.4 103/ul Normal 0.3-0.8 [facility] Comment on above: Performed By: #### C BC #### [facility] [address] [place] [address] Dr. Luis Edwards Monocytes/100 WBC (Bld) 4.9 % Normal 1.7-12.0 [facility] Comment on above: Performed By: #### C BC #### [facility] [address] [place] [address] Dr. Luis Edwards NEUT # 6.3 103/ul Normal 1.4-6.5 [facility] Comment on above: Performed By: #### C BC #### [facility] [address] [place] [address] Dr. Luis Edwards Neutrophils/100 WBC (Bld) 71.2 % Normal 43.0-75.[address] [facility] Comment on above: Performed By: #### C BC #### [facility] [address] [place] [address] Dr. Luis Edwards Platelet mean volume (Bld) [Entitic vol] 10.1 fL Normal 9.5-13.[address] [facility] Comment on above: Performed By: #### C BC #### [facility] [address] [place] [address] Dr. Luis Edwards PLT 262 103/ul Normal 150-[address] [facility] Comment on above: Performed By: #### C BC #### [facility] [address] [place], [place] [id number] Dr. Luis Edwards RBC 4.11 106/ul Critically low 4.20-5.40 [facility] Comment on above: Performed By: #### C BC #### [facility] [address] [place] [address] Dr. Luis Edwards WBC 8.8 103/ul Normal 4.0-11.0 [facility] Comment on above: Performed By: #### C BC #### [facility] [address] [place] [address] Dr. Luis Edwards CULTURE URINEon 07-20-2022 CULTURE URINE Culture Observations : NO GROWTH. Normal [facility] Comment on above: Performed By: #### C BC #### [facility] [address] [place] [address] Dr. Luis Edwards GLYCOHEMOGLOBIN A1Con 2021 ADA RECOMMENDATION SEE BELOW Normal [facility] Comment on above: Result Comment: ADA RECOMMENDED LIMIT 4.0 - 6.0 ADA THERAPEUTIC TARGET < 7.0 ACTION SUGGESTED > 7.0 Performed By: #### A 1C #### [facility] [address] [place] [address] Dr. Luis Edwards Glucose [Mass/Vol] 103 mg/dL Normal [facility] Comment on above: Performed By: #### A 1C #### [facility] [address] [place] [address] Dr. Luis Edwards HbA1c (Bld) [Mass fraction] 5.2 % Normal 4.5-6.2 [facility] Comment on above: Performed By: #### A 1C #### [facility] [address] [place] [address] Dr. Luis Edwards ZAKI BOX TEST PT SEND OUTo n 07-20-2022 SENT TO REF LAB 07/20/2022 Normal [facility] Comment on above: Performed By: #### N BOX #### [facility] [address] [place] [address] Dr. Luis Edwards TYPE AND SCREENon 07-20-2022 TYPE AND SCREEN Negative Normal [facility] Comment on above: Performed By: #### C BC #### [facility] [address] [address] [address] Luis Edwards US PREG <14 WKSon 07-20-2022 US PREG <14 WKS EXAMINATION: US PREG <14 WKS HISTORY: Irregular periods COMPARISON:none. FINDINGS: Gestational sac 5.23cm, 11w0d CRL 6.13cm, 12w4d Placenta: posterior Heart rate 164bpm Cervix: 4.1 cm, closed The ovaries are normal in size and contour Clinical age: 12w1d Clinical daniel: 01/31/2023 Ultrasound age: 12w4d Ultrasound daniel: 01/28/23 IMPRESSION: Viable intrauterine gestation of 12w4d Electronically authenticated by: DOROTHY MCCULLOUGH Date: 2022-07-20 16:09 Normal [facility] Encounters Encounter Date Encounter Type Care Provider Facility Start: 03-06-2024 End: 03-06-2024 [facility]ulatory [facility] Start: 02-21-2024 End: 02-21-2024 ambulatory ROD DELGADO Not Available Start: 01-24-2024 End: 01-24-2024 ambulatory [facility] Start: 01-09-2024 End: 01-09-2024 ambulatory ROD DELGADO Not Available Start: 12-09-2023 End: 12-09-2023 ambulatory ROD DELGADO Not Available Start: 10-20-2022 End: 10-21-[address] ROD DELGADO . Facility: Start: 08-27-2022 End: 08-27-[address] ROD DELGADO . Facility:[facility] Start: 07-20-2022 End: 07-21-[address] ROD DELGADO . Facility:[facility] Start: 07-20-2022 End: 07-21-[address] ROD DELGADO . Facility: Payers Date Payer Category Payer Unknown [id number] 2.16.84 [id number] 1994 Unknown [id number] 2.16.84 [id number] 1994 Unknown [id number] 2.16.84 [id number] 1994 Unknown [id number] 2.16.84 [id number] 1994 Unknown [id number] 2.16.84 [id number] 1994 Unknown [id number] 2.16.84 [id number] 1994 Unknown [id number] 2.16.84 [id number] 1994 Unknown [id number] 2.16.8 [id number] 1994 Unknown [id number] 2.16.8 [id number] 1959 Self-pay [id number] 1959 Unknown [id number] 1959 Unknown [id number] Unknown [id number] 2.16.84 [id number] Summary Purpose Family History No Family History Records FoundNo Family History Records FoundNo Family History Records Found Advance Directives No Advanced Directives Records FoundNo Advanced Directives Records FoundNo Advanced Directives Records Found Additional Source Comments INFORMATION SOURCE (unrecogn ized section and content) DATE CREATED AUTHOR 10/23/2022 [facility] DATE CREATED AUTHOR AUTHOR'S ORGANIZ ATION 02/27/2024 [facility] DATE CREATED AUTHOR AUTHOR'S ORGANIZ ATION 03/07/2024 [facility] FOR RECORDS PERTAINING TO PATIENTS WHO ARE OR HAVE BEEN ENROLLED IN A CHEMICAL DEPENDENCY/SUBSTANCEABUSE PROGRAM, SOME INFORMATION MAY BE OMITTED. This clinical summary was aggregated from multiple sources. Caution should be exercised in using it in the provision of clinical care. This summary normalizes information from multiple sources, and as a consequence, information in this document may materially change the coding, format and clinical context of patient data. In addition, data may be omitted in some cases. CLINICAL DECISIONS SHOULD BE BASED ON THE PRIMARY CLINICAL RECORDS. [facility] provides no warranty or guarantee of the accuracy or completeness of information in this document.
[2024-04-21 15:09] LABS: Age Gdln ACOG Testing Note (.); IGP, rfx Aptima HPV ASCU Note (.)
== END 2024-04-16 19:18 | disposition home or self-care (01) ==
LOC: LAB 19:17
PROVIDERS: Visit Provider Obstetrics & Gynecology
DX: Z01.419 Encounter for gynecological examination (general) (routine) without abnormal findings (principal)
CPT/HCPCS: 88175

== ENCOUNTER 2024-05-02 11:39 | Outpatient (OUT) | payer OTHER, SELFPAY ==
--- NOTE | 2024-05-02 11:41 | US_ITS ---
[address] [address] Patient Name: LEXIS OQUENDO MRN: [id number] date: 1995 Sex: F Assigned Patient Location: US Current Patient Location: Accession/Order Number: [id number] Exam Date: 05/02/2024 11:50 Report Date: 05/04/2024 07:25 At the request of: ROD DELGADO Procedure: US OB cervical length EXAMINATION: US OB cervical length, US OB anatomy HISTORY: SCREENING, , FOR ANATOMIC SURVEY Z36.89 COMPARISON: No relevant comparison available. TECHNIQUE: Transabdominal sonographic examination was performed for obstetrical and evaluation. FINDINGS: Number: 1 Heart Rate: 143.62 bpm H.B. /min Amniotic Fluid Volume: Subjectively normal position: Cephalic presentation, longitudinal lie Placental Location: ANTERIOR, the placental edge is 5.6 cm from the internal os. Grade 1. 1.7 cm hypoechoic area possibly a placental hernandez. Cervix Length: 4.20 cm , closed Normal anatomy: Lateral ventricles, cerebellum, posterior fossa, nose, lips, orbits, four-chamber heart, RVOT, LVOT, diaphragm, stomach, kidneys, abdominal cord insertion, bladder, umbilical arteries, three-vessel cord, spine, extremities Abnormalities: 2 mm left ventricular echogenic focus BIOMETRY: BPD: 4.65 cm; 20 weeks 0 days; 40.30 % HC: 17.22 cm; 19 weeks 6 days; 20.60 % AC: 15.07 cm; 20 weeks 2 days; 44.70 % FL: 3.22 cm; 20 weeks 0 days; 33.10 % EFW:334.90 g; 37.20 %, 12 ounces FL/AC: 21.37 FL/BPD: 69.22 HC/AC: 1.14 GESTATIONAL AGE: Age by EDC: 20 weeks 2 days DANIEL by EDC: 2024-09-17 Age by current US: 20 weeks 0 days DANIEL by current US: 2024-09-19 US/US OB cervical length IMPRESSION: 2 mm left ventricular echogenic focus, nonspecific Otherwise normal anatomy scan Closed cervix measuring 4.2 cm in length *Reference: [employer] Practice Guideline for the performance of Obstetric Ultrasound Examinations, May 12, 2007. Electronically authenticated by: DOROTHY MCCULLOUGH Date: 05/04/2024 07:25
--- NOTE | 2024-05-02 11:41 | US_ITS ---
[address] [address] Patient Name: LEXIS OQUENDO MRN: [id number] date: 1995 Sex: F Assigned Patient Location: US Current Patient Location: Accession/Order Number: [id number] Exam Date: 05/02/2024 11:50 Report Date: 05/04/2024 07:25 At the request of: ROD DELGADO Procedure: US OB anatomy EXAMINATION: US OB cervical length, US OB anatomy HISTORY: SCREENING, , FOR ANATOMIC SURVEY Z36.89 COMPARISON: No relevant comparison available. TECHNIQUE: Transabdominal sonographic examination was performed for obstetrical and evaluation. FINDINGS: Number: 1 Heart Rate: 143.62 bpm H.B. /min Amniotic Fluid Volume: Subjectively normal position: Cephalic presentation, longitudinal lie Placental Location: ANTERIOR, the placental edge is 5.6 cm from the internal os. Grade 1. 1.7 cm hypoechoic area possibly a placental hernandez. Cervix Length: 4.20 cm , closed Normal anatomy: Lateral ventricles, cerebellum, posterior fossa, nose, lips, orbits, four-chamber heart, RVOT, LVOT, diaphragm, stomach, kidneys, abdominal cord insertion, bladder, umbilical arteries, three-vessel cord, spine, extremities Abnormalities: 2 mm left ventricular echogenic focus BIOMETRY: BPD: 4.65 cm; 20 weeks 0 days; 40.30 % HC: 17.22 cm; 19 weeks 6 days; 20.60 % AC: 15.07 cm; 20 weeks 2 days; 44.70 % FL: 3.22 cm; 20 weeks 0 days; 33.10 % EFW:334.90 g; 37.20 %, 12 ounces FL/AC: 21.37 FL/BPD: 69.22 HC/AC: 1.14 GESTATIONAL AGE: Age by EDC: 20 weeks 2 days DANIEL by EDC: 2024-09-17 Age by current US: 20 weeks 0 days DANIEL by current US: 2024-09-19 US/US OB anatomy IMPRESSION: 2 mm left ventricular echogenic focus, nonspecific Otherwise normal anatomy scan Closed cervix measuring 4.2 cm in length *Reference: [employer] Practice Guideline for the performance of Obstetric Ultrasound Examinations, May 12, 2007. Electronically authenticated by: DOROTHY MCCULLOUGH Date: 05/04/2024 07:25
--- OUTSIDE RECORDS SUMMARY | 2024-05-02 11:42 | XMS_ITS | CCD ---
Author Organization [facility] Care Team Providers Care Change Control Analyst Name Role Phone DANNY ., DR VELASCO [...] DANNY ., DR VELASCO Attending Unavailable REQUEST, NONE LISTED Primary Care Unavaila ble COLBY, DR DOROTHY Garcia Consulting Unavailable DANNY ., [...] KINGSLEY ., KILEY Consulting Unavailable ROD DELGADO R Referring Unavailable NO PCP, NO PCP Primary Care Unavailable ROD DELGADO R Referring Unavailable NO PCP, NO PCP Primary Care Unavailable ROD DELGADO Attending Unavailable ROD DELGADO Attending Unavailable ROD DELGADO Attending Unavailable Problems Problem Classification Problem Date Documented [...] HCG.beta subunit Qn 7740 m[IU]/mL Normal Pr [facility] Comment on above: Result Comment: NEW REFERENCE [...] neoplasms. Performed By: #### 2 0415-6 #### [facility] ([id number]) [address], [address] [place] [address] US PREG ANATOMY SINGLEon US PREG ANATOMY [...] MARGAUX SANDERS Date: 2022-10-22 21:32 Normal [facility] CBC AUTO DIFFon 10-20-2022 BASO # 0.1 103/ul Normal 0.0-0.1 [facility] Comment on above: Performed By: #### C BC #### [facility] [address] [place] [address] Dr. Luis Edwards Basophils/100 WBC (Bld) 0.4 % Normal 0.2-2.0 [facility] Comment on above: Performed By: #### C BC #### [facility] [address] [place] [address] Dr. Luis Edwards EO # 0.3 103/ul Normal 0.0-0.7 [facility] Comment on above: Performed By: #### C BC #### [facility] [address] [address] [address] Luis Edwards Eosinophils/100 WBC (Bld) 1.7 % Normal 0.9-7.0 [facility] Comment on above: Performed By: #### C BC #### [facility] [address] [address] [address] Luis Edwards Erythrocyte distribution width (RBC) [Ratio] 13.1 % Normal 11.0-15.0 [facility] Comment on above: Performed By: #### C BC #### [facility] [address] [place] [address] Dr. Luis Edwards Hematocrit (Bld) [Volume fraction] 35.1 % Critically low 36.0-48.0 [facility] Comment on above: Performed By: #### C BC #### [facility] [address] [place] [address] Dr. Luis Edwards Hemoglobin (Bld) [Mass/Vol] 11.9 g/dL Critically low 12.0-16.0 [facility] Comment on above: Performed By: #### C BC #### [facility] [address] [place] [address] Dr. Luis Edwards IG # 0.17 10e3/ul Critically high 0.00-0.03 [facility] Comment on above: Performed By: #### C BC #### [facility] [address] [place] [address] Dr. Luis Edwards IG % 1.2 % Critically high 0.0-0.5 [facility] Comment on above: Performed By: #### C BC #### [facility] [address] [place] [address] Dr. Luis Edwards LYMPH # 2.3 103/ul Normal 1.2-3.8 [facility] Comment on above: Performed By: #### C BC #### [facility] [address] [place] [address] Dr. Luis Edwards Lymphocytes/100 WBC (Bld) 16.0 % Critically low 20.5-60.0 [facility] Comment on above: Performed By: #### C BC #### [facility] [address] [place] [address] Dr. Luis Edwards MANUAL DIFF REQ NO Normal [facility] Comment on above: Performed By: #### C BC #### [facility] [address] [place] [address] Dr. Luis Edwards MCH (RBC) [Entitic mass] 30.5 pg Normal 26.7-34.0 [facility] Comment on above: Performed By: #### C BC #### [facility] [address] [place] [address] Dr. Luis Edwards MCHC (RBC) [Mass/Vol] 33.9 g/dL Normal 29.9-35.2 [facility] Comment on above: Performed By: #### C BC #### [facility] [address] [place] [address] Dr. Luis Edwards MCV (RBC) [Entitic vol] 90.0 fL Normal 81.0-99.0 [facility] Comment on above: Performed By: #### C BC #### [facility] [address] [place] [address] Dr. Luis Edwards MONO # 0.6 103/ul Normal 0.3-0.8 [facility] Comment on above: Performed By: #### C BC #### [facility] [address] [place] [address] Dr. Luis Edwards Monocytes/100 WBC (Bld) 4.2 % Normal 1.7-12.0 [facility] Comment on above: Performed By: #### C BC #### [facility] [address] [place] [address] Dr. Luis Edwards NEUT # 11.2 103/ul Critically high 1.4-6.5 [facility] Comment on above: Performed By: #### C BC #### [facility] [address] [place] [address] Dr. Luis Edwards Neutrophils/100 WBC (Bld) 76.5 % Critically high 43.0-75.0 [facility] Comment on above: Performed By: #### C BC #### [facility] [address] [place] [address] Dr. Luis Edwards Platelet mean volume (Bld) [Entitic vol] 9.2 fL Critically low 9.5-13.5 [facility] Comment on above: Performed By: #### C BC #### [facility] [address] [place] [address] Dr. Luis Edwards PLT 247 103/ul Normal 150-450 [facility] Comment on above: Performed By: #### C BC #### [facility] [address] [place] [address] Dr. Luis Edwards RBC 3.90 106/ul Critically low 4.20-5.40 [facility] Comment on above: Performed By: #### C BC #### [facility] [address] [place] [address] Dr. Luis Edwards WBC 14.6 103/ul Critically high 4.0-11.[address] [facility] Comment on above: Performed By: #### C BC #### [facility] [address] [place] [address] Dr. Luis Edwards GLUCOSE - 1HRon 10-20-2022 Glucose [Mass/Vol] 133 mg/dL Critically high 74-106 [facility] Comment on above: Performed By: #### C BC #### [facility] [address] [place] [address] Dr. Luis Edwards PAP ACOG PANEL 2: 21 to 29on 08-31-2022 . . Normal [facility] Comment on above: Performed By: #### [id number] #### [facility] [address] [place] [address] Dr. Luis Edwards Age Gdln ACOG Testing 21-29 [facility] Comment on above: Performed By: #### 4 [id number] #### [facility] [address] [place] [address] Dr. Luis Edwards DIAGNOSIS: Comment Normal [facility] Comment on above: Result Comment: NEGA TIVE FOR INTRAEPITHELIAL LESION OR MALIGNANCY. PREDOMINANCE OF COCCOBACILLI CONSISTENT WITH SHIFT IN VAGINAL LUCRECIA IS PRESENT. Performed By: #### [id number] #### [facility] [address] [place] [address] Dr. Luis Edwards Methodology: Comment Normal [facility] Comment on above: Result Comment: This liquid based ThinPrep(R) pap test was screened with the use of an image guided system. Performed By: #### 4 [id number] #### [facility] [address] [place] [address] Dr. Luis Edwards Note: Comment Normal [facility] Comment on above: Result Comment: The Pap smear is a screening test designed to aid in the detection of premalignant and malignant conditions of the uterine cervix. It is not a diagnostic procedure and should not be used as the sole means of detecting cervical cancer. Both false-positive and false-negative reports do occur. . Performed By: #### 4 [id number] #### [facility] [address] [place] [address] Dr. Luis Edwards Performed by: Comment Normal [facility] Comment on above: Result Comment: Braydon Munoz, Manager Insurance Performed By: #### 4 [id number] #### [facility] [address] [place] [address] Dr. Luis Edwards Reflex Criteria: Comment Normal [facility] Comment on above: Result Comment: The HPV DNA reflex criteria were not met with this specimen result therefore, no HPV testing was performed. . Performed By: #### 4 [id number] #### [facility] [address] [place] [address] Dr. Luis Edwards Specimen adequacy: Comment Normal [facility] Comment on above: Result Comment: Sati sfactory for evaluation. No endocervical component is identified. Performed By: #### 4 [id number] #### [facility] [address] [place] [address] Dr. Luis Edwards CHLAMYDIA/GONOCOCCUS TIANNA (SW AB/URINE/PAPon 08-30-2022 Chlamydia trachomatis, TIANNA Negative Normal Negative [facility] Comment on above: Performed By: #### C T/NGNA #### [facility] [address] [place] [address] Dr. Luis Edwards Neisseria gonorrhoeae, TIANNA Negative Normal Negative [facility] Comment on above: Performed By: #### C T/NGNA #### [facility] [address] [place] [address] Dr. Luis Edwards VAGINITIS/VAGINOSIS DNA PROB Benjamin 08-29-2022 Viktoria species Negative Normal Negative [facility] Comment on above: Performed By: #### C BC #### [facility] [address] [place] [address] Dr. Luis Edwards Gardnerella vaginalis Positive Abnormal Negative [facility] Comment on above: Performed By: #### C BC #### [facility] [address] [place] [address] Dr. Luis Edwards Trichomonas vaginalis Negative Normal Negative [facility] Comment on above: Performed By: #### C BC #### [facility] [address] [place] [address] Dr. Luis Edwards HEPATITIS C VIRUS AB W/ REFL EX QUANTon 07-22-2022 HCV AB <0.1 Normal 0.0-0.9 [facility] Comment on above: Performed By: #### H CVPCRR #### [facility] [address] [place] [address] Dr. Luis Edwards Interpretation: Comment Normal [facility] Comment on above: Result Comment: Nega tive Not infected with HCV, unless recent infection is suspected or other evidence exists to indicate HCV infection. Performed By: #### H CVPCRR #### [facility] [address] [place] [address] Dr. Luis Edwards HEP B SURFACE ANTIGEN SCREEN on 07-21-2022 HBsAg Screen Negative Normal Negative [facility] Comment on above: Performed By: #### H BSANS #### [facility] [address] [place] [address] Dr. Luis Edwards HIV 1 AND 2 WITH REFLEXon HIV Screen 4th Generation wRfx Non-Reactive Normal Non Reactive [facility] Comment on above: Result Comment: HIV Negative HIV-1/HIV-2 antibodies and HIV-1 p24 antigen were NOT detected. There is no laboratory evidence of HIV infection. Performed By: #### C BC #### [facility] [address] [place] [address] Dr. Luis Edwards RPR QUANTon 07-21-2022 Rapid Plasma Reagin, Quant Non-Reactive Normal NonRea<1:1 [facility] Comment on above: Result Comment: Plea se Note: This test does not meet current guidelines for screening and diagnosis of syphilis. This test is intended for following treatment response in patients being treated for syphilis infection. To screen for syphilis infection, a reflex cascade that includes both RPR and a treponema-specific assay should be utilized, such as Treponema pallidum (Syphilis) Screening [place] (060137) or Rapid Plasma Reagin (RPR) Test With Reflex to Quantitative RPR and Confirmatory Treponema pallidum Antibodies (582183). Performed By: #### R PRQ #### [facility] [address] [place] [address] Dr. Luis Edwards RUBELLA AB IGGon 07-21-2022 Rubella Antibodies, IgG 1.57 index Normal Immune >0.99 [facility] Comment on above: Result Comment: Non- immune <0.90 Equivocal 0.90 - 0.99 Immune >0.99 Performed By: #### R UBIGG #### [facility] [address] [place] [address] Dr. Luis Edwards CBC AUTO DIFFon 07-20-2022 BASO # 0.1 103/ul Normal 0.0-0.1 [facility] Comment on above: Performed By: #### C BC #### [facility] [address] [place] [address] Dr. Luis Edwards Basophils/100 WBC (Bld) 0.6 % Normal 0.2-2.0 [facility] Comment on above: Performed By: #### C BC #### [facility] [address] [place] [address] Dr. Luis Edwards EO # 0.2 103/ul Normal 0.0-0.7 [facility] Comment on above: Performed By: #### C BC #### [facility] [address] [place] [address] Dr. Luis Edwards Eosinophils/100 WBC (Bld) 2.0 % Normal 0.9-7.0 [facility] Comment on above: Performed By: #### C BC #### [facility] [address] [place] [address] Dr. Luis Edwards Erythrocyte distribution width (RBC) [Ratio] 13.6 % Normal 11.0-15.0 [facility] Comment on above: Performed By: #### C BC #### [facility] [address] [address] [address] Luis Edwards Hematocrit (Bld) [Volume fraction] 35.6 % Critically low 36.0-48.0 [facility] Comment on above: Performed By: #### C BC #### [facility] [address] [address] [address] Luis Edwards Hemoglobin (Bld) [Mass/Vol] 11.8 g/dL Critically low 12.0-16.0 [facility] Comment on above: Performed By: #### C BC #### [facility] [address] [address] [address] Luis Edwards IG # 0.03 10e3/ul Normal 0.00-0.03 [facility] Comment on above: Performed By: #### C BC #### [facility] [address] [place] [address] Dr. Luis Edwards IG % 0.3 % Normal 0.0-0.5 [facility] Comment on above: Performed By: #### C BC #### [facility] [address] [address] [address] Luis Edwards LYMPH # 1.9 103/ul Normal 1.2-3.8 [facility] Comment on above: Performed By: #### C BC #### [facility] [address] [address] [address] Luis Edwards Lymphocytes/100 WBC (Bld) 21.0 % Normal 20.5-60.0 [facility] Comment on above: Performed By: #### C BC #### [facility] [address] [place] [address] Dr. Luis Edwards MANUAL DIFF REQ NO Normal [facility] Comment on above: Performed By: #### C BC #### [facility] [address] [place] [address] Dr. Luis Edwards MCH (RBC) [Entitic mass] 28.7 pg Normal 26.7-34.0 [facility] Comment on above: Performed By: #### C BC #### [facility] [address] [address] [address] Luis Edwards MCHC (RBC) [Mass/Vol] 33.1 g/dL Normal 29.9-35.2 [facility] Comment on above: Performed By: #### C BC #### [facility] [address] [address] [address] Luis Edwards MCV (RBC) [Entitic vol] 86.6 fL Normal 81.0-99.0 [facility] Comment on above: Performed By: #### C BC #### [facility] [address] [place] [address] Dr. Luis Edwards MONO # 0.4 103/ul Normal 0.3-0.8 [facility] Comment on above: Performed By: #### C BC #### [facility] [address] [place] [address] Dr. Luis Edwards Monocytes/100 WBC (Bld) 4.9 % Normal 1.7-12.0 [facility] Comment on above: Performed By: #### C BC #### [facility] [address] [place] [address] Dr. Luis Edwards NEUT # 6.3 103/ul Normal 1.4-6.5 [facility] Comment on above: Performed By: #### C BC #### [facility] [address] [place] [address] Dr. Luis Edwards Neutrophils/100 WBC (Bld) 71.2 % Normal 43.0-75.0 [facility] Comment on above: Performed By: #### C BC #### [facility] [address] [place] [address] Dr. Luis Edwards Platelet mean volume (Bld) [Entitic vol] 10.1 fL Normal 9.5-13.5 [facility] Comment on above: Performed By: #### C BC #### [facility] [address] [place] [address] Dr. Luis Edwards PLT 262 103/ul Normal 150-450 [facility] Comment on above: Performed By: #### C BC #### [facility] [address] [address] [address] Luis Edwards RBC 4.11 106/ul Critically low 4.20-5.[address] [facility] Comment on above: Performed By: #### C BC #### [facility] [address] [place] [address] Dr. Luis Edwards WBC 8.8 103/ul Normal 4.0-11.0 [facility] Comment on above: Performed By: #### C BC #### [facility] [address] [place] [address] Dr. Luis Edwards CULTURE URINEon 07-20-2022 CULTURE URINE Culture Observations : NO GROWTH. Normal [facility] Comment on above: Performed By: #### C BC #### [facility] [address] [place] [address] Dr. Luis Edwards GLYCOHEMOGLOBIN A1Con 2021 ADA RECOMMENDATION SEE BELOW Normal [facility] Comment on above: Result Comment: ADA RECOMMENDED LIMIT 4.0 - 6.0 ADA THERAPEUTIC TARGET < 7.0 ACTION SUGGESTED > 7.0 Performed By: #### A 1C #### [facility] [address] [place] [address] Dr. Luis Edwards Glucose [Mass/Vol] 103 mg/dL Normal [facility] Comment on above: Performed By: #### A 1C #### [facility] [address] [place] [address] Dr. Luis Edwards HbA1c (Bld) [Mass fraction] 5.2 % Normal 4.5-6.2 [facility] Comment on above: Performed By: #### A 1C #### [facility] [address] [place] [address] Dr. Luis Edwards ZAKI BOX TEST PT SEND OUTo n 07-20-2022 SENT TO REF LAB 07/20/2022 [address] [facility] Comment on above: Performed By: #### N BOX #### [facility] [address] [place] [address] Dr. Luis Edwards TYPE AND SCREENon 07-20-2022 TYPE AND SCREEN Negative Normal [facility] Comment on above: Performed By: #### C BC #### [facility] [address] [address] [address] Luis Edwards US PREG <14 WKSon [...] by: DOROTHY MCCULLOUGH Date: 2022-07-20 16:09 Normal [facility] Encounters Encounter Date Encounter Type Care Provider Facility Start: 04-16-2024 End: 04-16-2024 ambulatory ROD DELGADO Not Available Start: 03-06-2024 End: 03-06-2024 ambulatory ROD trujillo Start: 02-21-2024 End: 02-21-2024 ambulatory ROD DANNY Not Available Start: 01-24-2024 End: 01-24-2024 ambulatory ROD trujillo Start: 01-09-2024 End: 01-09-2024 ambulatory ROD DANNY Not Available Start: 12-09-2023 End: 12-09-2023 ambulatory ROD DANNY Not Available Start: 10-20-2022 End: 10-21-[address] ROD DELGADO . Facility: Start: 08-27-2022 End: 08-27-[address] ROD DELGADO . Facility:[facility] Start: 07-20-2022 End: 07-21-[address] ROD DELGADO . Facility: Start: 07-20-2022 End: 07-21-[address] ROD DELGADO . Facility: Payers Date Payer Category Payer Unknown [id number] 2.16.84 [id number] 1994 Unknown [id number] 2.16.84 [id number] 1994 Unknown [id number] 2.16.84 [id number] 1994 Unknown [id number] 2.16.84 [id number] 1994 Unknown [id number] 2.16.8 [id number] 1994 Unknown [id number] 2.16.8 [id number] 1994 Unknown [id number] 2.16.84 [id number] 1994 Unknown [id number] 2.16.84 [id number] 1994 Unknown [id number] 2.16.84 [id number] 1994 Unknown [id number] 2.16.84 [id number] 1959 Self-pay [id number] 1959 Unknown [id number] 1959 Unknown [id number] Unknown [id number] 2.16.84 [id number] Summary Purpose Family History No Family History Records FoundNo Family History Records FoundNo Family History Records Found Advance Directives No Advanced Directives Records FoundNo Advanced Directives Records FoundNo Advanced Directives Records Found Additional Source Comments INFORMATION SOURCE (unrecogn ized section and content) DATE CREATED AUTHOR 10/23/2022 [facility] DATE CREATED AUTHOR AUTHOR'S ORGANIZ ATION 03/07/2024 [facility] DATE CREATED AUTHOR AUTHOR'S ORGANIZ ATION 04/18/2024 [facility] EPIC FOR RECORDS PERTAINING TO PATIENTS WHO ARE [...] BE BASED ON THE PRIMARY CLINICAL RECORDS. [facility]. provides no warranty or guarantee of the accuracy or completeness of information in this document.
== END 2024-05-02 11:40 | disposition home or self-care (01) ==
LOC: US 11:39
PROVIDERS: Visit Provider Obstetrics & Gynecology
DX: Z36.1 Encounter for antenatal screening for raised alphafetoprotein level (principal); Z3A.20 20 weeks gestation of pregnancy
CPT/HCPCS: 76805; 76817

== ENCOUNTER 2024-06-04 13:04 | Outpatient (OUT) | payer OTHER, SELFPAY ==
--- OUTSIDE RECORDS SUMMARY | 2024-06-04 13:21 | XMS_ITS | CCD ---
[facility] Organization [facility] [place] Care Team Providers Care Drapery Installer Name Role Phone DANNY ., DR VELASCO [...] DR NONE LISTED Primary Care Unavaila ble JAMAICA, DR DOROTHY Garcia Consulting Unavailable DANNY ., [...] DR MARGAUX Sifuentes Consulting Unavailable KINGSLEY ., TIERNEY Consulting Unavailable DANNYBELLAY R Referring Unavailable NO PCP, NO PCP Primary Care Unavailable ROD OSUNA R Referring Unavailable NO PCP, NO PCP Primary Care Unavailable ROD OSUNA Attending Unavailable DANNYROD Bolton Attending Unavailable DANNYROD Attending Unavailable KINGSLEYTIERNEY Attending Unavailable Unavailable Primary Care Provider Unavailabl e Problems Problem Classification Problem Date Documented Date Episodic/Chronic Immunizations and screening for infectious disease (1 source) Encounter for screening for human papillomavirus (HPV); Translations: [ENC SCREENING HUMAN PAPILLOMAVIRUS] Onset: 09-01-2022 Episodic Menstrual disorders (6 sources) Irregular menstruation, unspecified; Translations: [IRREGULAR MENSTRUATION UNSPECIFIED] Onset: 07-20-2022 Chronic Other and delivery including normal (11 sources) Encounter for supervision of normal , unspecified, unspecified trimester; Translations: [Encounter for supervision of other normal , first trimester] Onset: 07-20-2022 Episodic Other screening for suspected conditions (not mental disorders or infectious disease) (6 sources) Encounter for screening for malignant neoplasm of cervix; Translations: [Patient encounter status] Onset: 08-27-2022 Episodic Residual codes; unclassified (2 sources) Gestation period, 22 weeks; Translations: [22 weeks gestation of ] 05-14-2024 Episodic Results Test Name Value Interpretation Reference Range Facility Urinalysis macro (dipstick) panel (U)on 05-14-2024 Bilirubin, UA Negative Negative - 4(70) +++ mg/dL [facility] Blood, UA Negative Negative - 50 Jl/mcL [facility] Clarity, UA Clear [facility] Color, UA Yellow [facility] Glucose, UA Negative Negative - 2000(110) ++++ mg/dL [facility] Interpretation and review of laboratory results Normal [facility] Ketones, UA Negative Negative - 160(16) ++++ mg/dL [facility] Leukocytes, UA Negative Negative - 500+++ Juan/mcL [facility] Nitrite, UA Negative Negative - Positive [facility] pH, UA 6.5 5 - 9 [facility] Protein, UA Negative Negative - 2000(20) ++++ mg/dL [facility] Spec Grav, UA 1.025 1 - 1.03 [facility] Urobilinogen, UA 0.2 0.2 - 12 mg/dL [facility] HCG.beta subunit IA 3rd IS Q non 01-24-2024 HCG.beta subunit Qn 7740 m[IU]/mL Normal [facility] Comment on above: Result Comment: NEW REFERENCE [...] neoplasms. Performed By: #### 2 0415-6 #### [facility] ([id number]) [address], [address] [place] [address] [place] PREG ANATOMY SINGLEon US PREG ANATOMY [...] MARGAUX SANDERS Date: 2022-10-22 21:32 Normal [facility] CBC AUTO DIFFon 10-20-2022 BASO # 0.1 103/ul Normal 0.0-0.1 [facility] Comment on above: Performed By: #### C BC #### [facility] [address] [address] [address] Luis Edwards Basophils/100 WBC (Bld) 0.4 % Normal 0.2-2.0 [facility] Comment on above: Performed By: #### C BC #### [facility] [address] [address] [address] Luis Edwards EO # 0.3 103/ul Normal 0.0-0.7 [facility] Comment on above: Performed By: #### C BC #### [facility] [address] [address] [address] Luis Edwards Eosinophils/100 WBC (Bld) 1.7 % Normal 0.9-7.0 [facility] Comment on above: Performed By: #### C BC #### [facility] [address] [address] [address] Luis Edwards Erythrocyte distribution width (RBC) [Ratio] 13.1 % Normal 11.0-15.0 [facility] Comment on above: Performed By: #### C BC #### [facility] [address] [address] [address] Luis Edwards Hematocrit (Bld) [Volume fraction] 35.1 % Critically low 36.0-48.0 [facility] Comment on above: Performed By: #### C BC #### [facility] [address] [address] [address] Luis Edwards Hemoglobin (Bld) [Mass/Vol] 11.9 g/dL Critically low 12.0-16.0 [facility] Comment on above: Performed By: #### C BC #### [facility] [address] [address] [address] Luis Edwards IG # 0.17 10e3/ul Critically high 0.00-0.03 [facility] Comment on above: Performed By: #### C BC #### [facility] [address] [address] [address] Luis Edwards IG % 1.2 % Critically high 0.0-0.5 [facility] Comment on above: Performed By: #### C BC #### [facility] [address] [place] [address] Dr. Luis Edwards LYMPH # 2.3 103/ul Normal 1.2-3.8 [facility] Comment on above: Performed By: #### C BC #### [facility] [address] [place] [address] Dr. Luis Edwards Lymphocytes/100 WBC (Bld) 16.0 % Critically low 20.5-60.0 [facility] Comment on above: Performed By: #### C BC #### [facility] [address] [place] [address] Dr. Luis Edwards MANUAL DIFF REQ NO Normal [facility] Comment on above: Performed By: #### C BC #### [facility] [address] [place] [address] Dr. Luis Edwards MCH (RBC) [Entitic mass] 30.5 pg Normal 26.7-34.0 [facility] Comment on above: Performed By: #### C BC #### [facility] [address] [place] [address] Dr. Luis Edwards MCHC (RBC) [Mass/Vol] 33.9 g/dL Normal 29.9-35.2 [facility] Comment on above: Performed By: #### C BC #### [facility] [address] [place] [address] Dr. Luis Edwards MCV (RBC) [Entitic vol] 90.0 fL Normal 81.0-99.0 [facility] Comment on above: Performed By: #### C BC #### [facility] [address] [place] [address] Dr. Luis Edwards MONO # 0.6 103/ul Normal 0.3-0.8 [facility] Comment on above: Performed By: #### C BC #### [facility] [address] [place] [address] Dr. Luis Edwards Monocytes/100 WBC (Bld) 4.2 % Normal 1.7-12.0 [facility] Comment on above: Performed By: #### C BC #### [facility] [address] [address] [address] Luis Edwards NEUT # 11.2 103/ul Critically high 1.4-6.5 [facility] Comment on above: Performed By: #### C BC #### [facility] [address] [address] [address] Luis Edwards Neutrophils/100 WBC (Bld) 76.5 % Critically high 43.0-75.0 [facility] Comment on above: Performed By: #### C BC #### [facility] [address] [address] [address] Luis Edwards Platelet mean volume (Bld) [Entitic vol] 9.2 fL Critically low 9.5-13.5 [facility] Comment on above: Performed By: #### C BC #### [facility] [address] [place] [address] Dr. Luis Edwards PLT 247 103/ul Normal 150-450 [facility] Comment on above: Performed By: #### C BC #### [facility] [address] [place] [address] Dr. Luis Edwards RBC 3.90 106/ul Critically low 4.20-5.40 [facility] Comment on above: Performed By: #### C BC #### [facility] [address] [place] [address] Dr. Luis Edwards WBC 14.6 103/ul Critically high 4.0-11.0 [facility] Comment on above: Performed By: #### C BC #### [facility] [address] [place] [address] Dr. Luis Edwards GLUCOSE - 1HRon 10-20-2022 Glucose [Mass/Vol] 133 mg/dL Critically high 74-106 [facility] Comment on above: Performed By: #### C BC #### [facility] [address] [place] [address] Dr. Luis Edwards PAP ACOG PANEL 2: 21 to 29on 08-31-2022 . . Normal [facility] Comment on above: Performed By: #### [id number] #### [facility] [address] [place] [address] Dr. Luis Edwards Age Gdln ACOG Testing 21-29 [facility] Comment on above: Performed By: #### 4 [id number] #### [facility] [address] [place] [address] Dr. Luis Edwards DIAGNOSIS: Comment [facility] Comment on above: Result Comment: NEGA TIVE FOR INTRAEPITHELIAL LESION OR MALIGNANCY. PREDOMINANCE OF COCCOBACILLI CONSISTENT WITH SHIFT IN VAGINAL LUCRECIA IS PRESENT. Performed By: #### [id number] #### [facility] [address] [place] [address] Dr. Luis Edwards Methodology: Comment [facility] Comment on above: Result Comment: This liquid based ThinPrep(R) pap test was screened with the use of an image guided system. Performed By: #### [id number] #### [facility] [address] [place] [address] Dr. Luis Edwards Note: Comment [facility] Comment on above: Result Comment: The Pap smear is a screening test designed to aid in the detection of premalignant and malignant conditions of the uterine cervix. It is not a diagnostic procedure and should not be used as the sole means of detecting cervical cancer. Both false-positive and false-negative reports do occur. . Performed By: #### 4 [id number] #### [facility] [address] [place] [address] Dr. Luis Edwards Performed by: Comment Normal [facility] Comment on above: Result Comment: Braydon Munoz, Computer Programming Manager Performed By: #### [id number] #### [facility] [address] [place] [address] Dr. Luis Edwards Reflex Criteria: Comment [facility] Comment on above: Result Comment: The HPV DNA reflex criteria were not met with this specimen result therefore, no HPV testing was performed. . Performed By: #### 4 [id number] #### [facility] [address] [place] [address] Dr. Luis Edwards Specimen adequacy: Comment Normal [facility] Comment on above: Result Comment: Sati sfactory for evaluation. No endocervical component is identified. Performed By: #### [id number] #### [facility] [address] [place] [address] Dr. Luis Edwards CHLAMYDIA/GONOCOCCUS TIANNA (SW AB/URINE/PAPon 08-30-2022 Chlamydia trachomatis, TIANNA Negative Normal Negative [facility] Comment on above: Performed By: #### C T/NGNA #### [facility] [address] [place] [address] Dr. Luis Edwards Neisseria gonorrhoeae, TIANNA Negative Normal Negative [facility] Comment on above: Performed By: #### C T/NGNA #### [facility] [address] [place] [address] Dr. Luis Edwards VAGINITIS/VAGINOSIS DNA PROB Benjamin 08-29-2022 Viktoria species Negative Normal Negative [facility] Comment on above: Performed By: #### C BC #### [facility] [address] [place] [address] Dr. Luis Edwards Gardnerella vaginalis Positive Abnormal Negative [facility] Comment on above: Performed By: #### C BC #### [facility] [address] [place] [address] Dr. Luis Edwards Trichomonas vaginalis Negative Normal Negative [facility] Comment on above: Performed By: #### C BC #### [facility] [address] [place] [address] Dr. Luis Edwards HEPATITIS C VIRUS AB W/ REFL EX QUANTon 07-22-2022 HCV AB <0.1 Normal 0.0-0.9 [facility] Comment on above: Performed By: #### H CVPCRR #### [facility] [address] [place] [address] Dr. Luis Edwards Interpretation: Comment Normal [facility] Comment on above: Result Comment: Nega tive Not infected with HCV, unless recent infection is suspected or other evidence exists to indicate HCV infection. Performed By: #### H CVPCRR #### [facility] [address] [place] [address] Dr. Luis Edwards HEP B SURFACE ANTIGEN SCREEN on 07-21-2022 HBsAg Screen Negative Normal Negative [facility] Comment on above: Performed By: #### H BSANS #### [facility] [address] [place] [address] Dr. Luis Edwards HIV 1 AND 2 WITH REFLEXon HIV Screen 4th Generation wRfx Non-Reactive Normal Non Reactive [facility] Comment on above: Result Comment: HIV Negative HIV-1/HIV-2 antibodies and HIV-1 p24 antigen were NOT detected. There is no laboratory evidence of HIV infection. Performed By: #### C BC #### [facility] [address] [place] [address] Dr. Luis Edwards RPR QUANTon 07-21-2022 Rapid Plasma Reagin, Quant Non-Reactive Normal NonRea<1:1 [facility] Comment on above: Result Comment: Plea se Note: This test does not meet current guidelines for screening and diagnosis of syphilis. This test is intended for following treatment response in patients being treated for syphilis infection. To screen for syphilis infection, a reflex cascade that includes both RPR and a treponema-specific assay should be utilized, such as Treponema pallidum (Syphilis) Screening [place] (738193) or Rapid Plasma Reagin (RPR) Test With Reflex to Quantitative RPR and Confirmatory Treponema pallidum Antibodies (894799). Performed By: #### R PRQ #### [facility] [address] [place] [address] Dr. Luis Edwards RUBELLA AB IGGon 07-21-2022 Rubella Antibodies, IgG 1.57 index Normal Immune >0.99 [facility] Comment on above: Result Comment: Non- immune <0.90 Equivocal 0.90 - 0.99 Immune >0.99 Performed By: #### R UBIGG #### [facility] [address] [place] [address] Dr. Luis Edwards CBC AUTO DIFFon 07-20-2022 BASO # 0.1 103/ul Normal 0.0-0.1 [facility] Comment on above: Performed By: #### C BC #### [facility] [address] [place] [address] Dr. Luis Edwards Basophils/100 WBC (Bld) 0.6 % Normal 0.2-2.0 [facility] Comment on above: Performed By: #### C BC #### [facility] [address] [place] [address] Dr. Luis Edwards EO # 0.2 103/ul Normal 0.0-0.7 [facility] Comment on above: Performed By: #### C BC #### [facility] [address] [place] [address] Dr. Luis Edwards Eosinophils/100 WBC (Bld) 2.0 % Normal 0.9-7.0 [facility] Comment on above: Performed By: #### C BC #### [facility] [address] [place] [address] Dr. Luis Edwards Erythrocyte distribution width (RBC) [Ratio] 13.6 % Normal 11.0-15.0 [facility] Comment on above: Performed By: #### C BC #### [facility] [address] [place] [address] Dr. Luis Edwards Hematocrit (Bld) [Volume fraction] 35.6 % Critically low 36.0-48.0 [facility] Comment on above: Performed By: #### C BC #### [facility] [address] [place] [address] Dr. Luis Edwards Hemoglobin (Bld) [Mass/Vol] 11.8 g/dL Critically low 12.0-16.0 [facility] Comment on above: Performed By: #### C BC #### [facility] [address] [place] [address] Dr. Luis Edwards IG # 0.03 10e3/ul Normal 0.00-0.03 [facility] Comment on above: Performed By: #### C BC #### [facility] [address] [place] [address] Dr. Luis Edwards IG % 0.3 % Normal 0.0-0.5 [facility] Comment on above: Performed By: #### C BC #### [facility] [address] [place] [address] Dr. Luis Edwards LYMPH # 1.9 103/ul Normal 1.2-3.8 [facility] Comment on above: Performed By: #### C BC #### [facility] [address] [place] [address] Dr. Luis Edwards Lymphocytes/100 WBC (Bld) 21.0 % Normal 20.5-60.0 [facility] Comment on above: Performed By: #### C BC #### [facility] [address] [place] [address] Dr. Luis Edwards MANUAL DIFF REQ NO Normal [facility] Comment on above: Performed By: #### C BC #### [facility] [address] [place] [address] Dr. Luis Edwards MCH (RBC) [Entitic mass] 28.7 pg Normal 26.7-34.0 [facility] Comment on above: Performed By: #### C BC #### [facility] [address] [place] [address] Dr. Luis Edwards MCHC (RBC) [Mass/Vol] 33.1 g/dL Normal 29.9-35.2 [facility] Comment on above: Performed By: #### C BC #### [facility] [address] [place] [address] Dr. Luis Edwards MCV (RBC) [Entitic vol] 86.6 fL Normal 81.0-99.0 [facility] Comment on above: Performed By: #### C BC #### [facility] [address] [place] [address] Dr. Luis Edwards MONO # 0.4 103/ul Normal 0.3-0.8 [facility] Comment on above: Performed By: #### C BC #### [facility] [address] [place] [address] Dr. Luis Edwards Monocytes/100 WBC (Bld) 4.9 % Normal 1.7-12.0 [facility] Comment on above: Performed By: #### C BC #### [facility] [address] [place] [address] Dr. Luis Edwards NEUT # 6.3 103/ul Normal 1.4-6.5 [facility] Comment on above: Performed By: #### C BC #### [facility] [address] [address] [address] Luis Edwards Neutrophils/100 WBC (Bld) 71.2 % Normal 43.0-75.0 [facility] Comment on above: Performed By: #### C BC #### [facility] [address] [address] [address] Luis Edwards Platelet mean volume (Bld) [Entitic vol] 10.1 fL Normal 9.5-13.5 [facility] Comment on above: Performed By: #### C BC #### [facility] [address] [place] [address] Dr. Luis Edwards PLT 262 103/ul Normal 150-450 [facility] Comment on above: Performed By: #### C BC #### [facility] [address] [place] [address] Dr. Luis Edwards RBC 4.11 106/ul Critically low 4.20-5.40 [facility] Comment on above: Performed By: #### C BC #### [facility] [address] [place] [address] Dr. Luis Edwards WBC 8.8 103/ul Normal 4.0-11.0 [facility] Comment on above: Performed By: #### C BC #### [facility] [address] [place] [address] Dr. Luis Edwards CULTURE URINEon 07-20-2022 CULTURE URINE Culture Observations : NO GROWTH. Normal [facility] Comment on above: Performed By: #### C BC #### [facility] [address] [place] [address] Dr. Luis Edwards GLYCOHEMOGLOBIN A1Con 2021 ADA RECOMMENDATION SEE BELOW Normal [facility] Comment on above: Result Comment: ADA RECOMMENDED LIMIT 4.0 - 6.0 ADA THERAPEUTIC TARGET < 7.0 ACTION SUGGESTED > 7.0 Performed By: #### A 1C #### [facility] [address] [place] [address] Dr. Luis Edwards Glucose [Mass/Vol] 103 mg/dL Normal [facility] Comment on above: Performed By: #### A 1C #### [facility] [address] [place] [address] Dr. Luis Edwards HbA1c (Bld) [Mass fraction] 5.2 % Normal 4.5-6.2 [facility] Comment on above: Performed By: #### A 1C #### [facility] [address] [place] [address] Dr. Luis Ewdards ZAKI BOX TEST PT SEND OUTo n 07-20-2022 SENT TO REF LAB 07/20/2022 Normal [facility] Comment on above: Performed By: #### N BOX #### [facility] [address] [place] [address] Dr. Luis Edwards TYPE AND SCREENon 07-20-2022 TYPE AND SCREEN Negative Normal [facility] Comment on above: Performed By: #### C BC #### [facility] [address] [place] [address] Dr. Luis Edwards US PREG <14 WKSon [...] by: DOROTHY MCCULLOUGH Date: 2022-07-20 16:09 Normal [facility] Vital Signs Date Time Vital Sign Value Performing Clinician Faci lity 05-14-2024 14:29-0400 Body mass index (BMI) [Ratio] 27.29 kg/m2 Tierney PRECIADO Work Phone: [facility] 05-14-2024 14:29-040 Body weight 74.39 kg Tierney PRECIADO Work Phone: [facility] 05-14-2024 14:29-0400 Diastolic blood pressure 64 mm[Hg] Tierney PRECIADO Work Phone: [facility] 05-14-2024 14:29-0400 Systolic blood pressure 110 mm[Hg] Tierney PRECIADO Work Phone: [facility] Encounters Encounter Date Encounter Type Care Provider Facility Start: 05-14-2024 End: 05-14-2024 flow sheet Tierney PRECIADO Work Phone: [facility] Comment on above: Second trimester pre gnancy; 22 weeks gestation of ; Diabetes mellitus screening Start: 05-14-2024 End: 05-14-2024 ambulatory TIERNEY WYNN Not Available Start: 05-14-2024 End: 05-14-2024 Bamboo flowsheet Tierney PRECIADO Work Phone: [facility] Start: 05-14-2024 End: 05-14-2024 Bamboo flowsheet Tierney PRECIADO Work Phone: [facility] Start: 04-16-2024 End: 04-16-2024 ambulatory ROD DANNY Not Available Start: 03-06-2024 End: 03-06-2024 ambulatory ROD R [facility] Start: 02-21-2024 End: 02-21-2024 ambulatory ROD DANNY Not Available Start: 01-24-2024 End: 01-24-2024 ambulatory ROD R [facility] Start: 01-09-2024 End: 01-09-2024 ambulatory ROD DANNY Not Available Start: 12-09-2023 End: 12-09-2023 ambulatory ROD DANNY Not Available Start: 10-20-2022 End: 10-21-[address] ROD OSUNA . Facility: Start: 08-27-2022 End: 08-27-[address] ROD OSUNA . Facility:[facility] Start: 07-20-2022 End: 07-21-[address] ROD OSUNA . Facility:[facility] Start: 07-20-2022 End: 07-21-[address] ROD OSUNA . Facility: Procedures Date Procedure Procedure Detail Performing Clinician Start: 05-14-2024 Urnls dip stick/tabl et rgnt non-auto w/o micrscp Tierney PRECIADO Work Phone: Plan of Treatment Date Care Activity Detail Author Start: 06-16-2024 End: 06-16-2024 Patient encounter procedure 06/16/2024 2:50 PM EST Routine [facility] [address] [place] [address] Rod Osuna DO [address] Jazmin Pacheco, [facility] Start: 05-14-2024 End: 05-14-2024 Patient encounter procedure 05/14/2024 2:20 PM EDT Routine [facility] [address] [place] [address] Tierney Wynn PA [address] [place] [place] [address] Arrived [facility] Comment on above: Arrived Start: 05-14-2024 End: 05-14-2025 CBC panel - Blood by Automated count CBC Lab Routine Diabetes mellitus screening Expected: 05/14/2024 (Approximate), Expires: 05/14/2025 [facility] Work Phone: Comment on above: Expected: 05/14/2024 (Approximate), Expires: 05/14/2025 Start: 05-14-2024 End: 05-14-2025 Measurement of glucose 1 hour after glucose challenge for glucose tolerance test Glucose tolerance, 1 hour Lab Routine Diabetes mellitus screening Expected: 05/14/2024 (Approximate), Expires: 05/14/2025 [facility] Comment on above: Expected: 05/14/2024 (Approximate), Expires: 05/14/2025 Payers Date Payer Category Payer Private Health Insurance [facility] [id number] 2023-Present [address] [address] [place] [address] [id number] 2020 Medicaid [facility] MEDICAID [facility] MEDICAID [id number] 2020-Present [address] [place] [address] [id number] 1994 Unknown [id number] 2.16.840.1.870697.3.579.2. 593 1994 Unknown [id number] 2.16.840.1.962255.3.579.2. 593 1994 Unknown [id number] 2.16.840.1.926687.3.579.2. 593 1994 Unknown [id number] 2.16.840.1.383837.3.579.2. 593 1994 Unknown [id number] 2.16.840.1.099676.3.579.2. 1286 1994 Unknown [id number] 2.16.840.1.811041.3.579.2. 1286 1994 Unknown [id number] 2.16.840.1.338785.3.579.2. 1259 1994 Unknown [id number] 2.16.840.1.961493.3.579.2. 1259 1994 Unknown [id number] 2.16.840.1.153851.3.579.2. 1259 1994 Unknown [id number] 2.16.840.1.001784.3.579.2. 1259 1994 Unknown [id number] 2.16.840.1.706076.3.579.2. 1259 1959 Self-pay [id number] 1959 Unknown [id number] 1959 Unknown [id number] Unknown [id number] 2.16.840.1.846403.3.579.2. 593 Social History Date Type Detail Facility [facility] Start: 01-19-2023 Tobacco use and exposure Smoke less tobacco non-user [facility] Start: 04-16-2024 End: 05-14-2024 Alcoholic beverage intake Lifetime non-drinker (finding) [facility] Start: 12-09-2023 History of Social function [facility] Start: 12-09-2023 Tobacco use panel [facility] Start: 12-26-2023 [facility] Start: 1995 Sex assigned at Not on file [facility] History of Present illness Narrative 05-14-2024 ILANA Rubio - 05/14/2024 2:20 PM EDT Note Date & Type Note Facility 05-14-2024 History of Presen t illness Narrative Reason for Appointment: Patient ID: Lilo Kemp is a 28 y.o. female who presents for Routine Visit Patient presents today for Return OB appointment. MEDICATIONS No current outpatient medications ALLERGIES No Known Allergies PROBLEMS Active Ambulatory Problems Diagnosis Date Noted No Active Ambulatory Problems Resolved Ambulatory Problems Diagnosis Date Noted No Resolved Ambulatory Problems Past Medical History: Diagnosis Date Anxiety anxiety HISTORY PAST MEDICAL HISTORY SOCIAL HISTORY Past Medical History: Diagnosis Date Anxiety anxiety Social History Tobacco Use Smoking status: Never Smokeless tobacco: Never Substance Use Topics Alcohol use: Never Drug use: Never FAMILY HISTORY No family history on file. SURGICAL HISTORY Past Surgical History: Procedure Laterality Date PAP SMEAR 08/27/2022 negative REVIEW OF SYSTEMS Review of Systems: Review of Systems Constitutional: Negative. HENT: Negative. Eyes: Negative. Respiratory: Negative. Cardiovascular: Negative. Gastrointestinal: Negative. Genitourinary: Negative. Musculoskeletal: Negative. Skin: Negative. Neurological: Negative. All other systems reviewed and are negative. Hematological: Negative. Endocrine: Negative. Allergic/Immunologic: Negative. OBJECTIVE Objective: Physical Exam Constitutional: Appearance: Normal appearance. She is normal weight. HENT: Head: Normocephalic. Cardiovascular: Rate and Rhythm: Normal rate. Pulses: Normal pulses. Pulmonary: Effort: Pulmonary effort is normal. Breath sounds: Normal breath sounds. Abdominal: Palpations: Abdomen is soft. Musculoskeletal: General: Normal range of motion. Neurological: General: No focal deficit present. Mental Status: She is alert and oriented to person, place, and time. Psychiatric: Mood and Affect: Mood normal. Behavior: Behavior normal. Thought Content: Thought content normal. Judgment: Judgment normal. Vitals and nursing note reviewed. Vitals: Estimated body mass index is 27.29 kg/m as calculated from the following: Height as of 12/09/23: 5' 5 . Weight as of this encounter: 164 lb. BP: 110/64 Patient's last menstrual period was 12/12/2023. ASSESSMENT & PLAN ICD-10-CM 1. Second trimester Z34.92 POCT urinalysis dipstick manually resulted 2. 22 weeks gestation of Z3A.22 POCT urinalysis dipstick manually resulted 3. Diabetes mellitus screening Z13.1 CBC Glucose tolerance, 1 hour Return OB: Patient presents today for a routine obstetrics appointment. Patient is currently 22w0d . Patient states she is doing well but has complaints of being tired due to current . Patient has verbalizes frequent movement. Orders Placed This Encounter Procedures CBC Glucose tolerance, 1 hour POCT urinalysis dipstick manually resulted Follow Up: Patient is to return to office in 4 week for routine OB appointment. Documented by ILANA Rubio on behalf of: ILANA Rubio documented in this encounter [facility] Evaluation note Note Date & Type Note Facility Evaluation note Diagnosis Second trimester state, incidental 22 weeks gestation of Diabetes mellitus screening Screening for diabetes mellitus documented in this encounter [facility] Summary Purpose Family History No Family History Records FoundNo Family History Records FoundNo Family History Records Found Advance Directives No Advanced Directives Records FoundNo Advanced Directives Records FoundNo Advanced Directives Records Found Additional Source Comments INFORMATION SOURCE (unrecogn ized section and content) DATE CREATED AUTHOR 10/23/2022 [facility] DATE CREATED AUTHOR AUTHOR'S ORGANIZ ATION 03/07/2024 [facility] DATE CREATED AUTHOR AUTHOR'S ORGANIZ ATION 05/16/2024 [facility] EPIC Reason for Visit (unrecogniz ed section and content) Reason Comments Routine Visit FOR RECORDS PERTAINING TO PATIENTS WHO ARE [...] BE BASED ON THE PRIMARY CLINICAL RECORDS. [facility] [place] [employer] [facility]. provides no warranty or guarantee of the accuracy or completeness of information in this document.
[2024-06-04 14:24] LABS: Basophils Absolute Auto 0.1 10^3/uL (0.0-0.1); Basophils Percent Auto 0.4 % (0.2-2.0); Eosinophils Absolute Auto 0.1 10^3/uL (0.0-0.7); Eosinophils Percent Auto 1.2 % (0.9-7.0); Hematocrit 35.7 % (36.0-48.0); Immature Granulocytes Abs Auto 0.09 10^3/uL (0.00-0.03); Immature Granulocytes Pct Auto 0.8 % (0.0-0.5); Lymphocytes Absolute Auto 2.2 10^3/uL (1.2-3.8); Lymphocytes Percent Auto 18.7 % (20.5-60.0); Mean Corpuscular HGB Conc 33.6 g/dL (29.9-35.2); Mean Corpuscular Hemoglobin 31.5 pg (26.7-34.0); Mean Corpuscular Volume 93.7 fL (81.0-99.0); Monocytes Absolute Auto 0.4 10^3/uL (0.3-0.8); Monocytes Percent Auto 3.6 % (1.7-12.0); Neutrophils Absolute Auto 8.9 10^3/uL (1.4-6.5); Neutrophils Percent Auto 75.3 % (43.0-75.0); Platelet Count 213 10^3/uL (150-450); Red Blood Count 3.81 10^6/uL (4.20-5.40); White Blood Count 11.8 10^3/uL (4.0-11.0)
[2024-06-04 14:33] LABS: Glucose 1 Hour 145 mg/dL (<130)
== END 2024-06-04 13:05 | disposition home or self-care (01) ==
PROVIDERS: Visit Provider Physician Assistant
DX: Z13.1 Encounter for screening for diabetes mellitus (principal)
CPT/HCPCS: 36415; 82950; 85025

== ENCOUNTER 2024-06-11 08:11 | Outpatient (OUT) | payer OTHER, SELFPAY ==
[2024-06-11 08:54] LABS: Glucose Fasting 81 mg/dL (<95)
[2024-06-11 09:52] LABS: Glucose 1 Hour 122 mg/dL (<180)
[2024-06-11 11:13] LABS: Glucose 2 Hour 101 mg/dL (<155)
[2024-06-11 11:50] LABS: Glucose 3 Hour 74 mg/dL (<140)
== END 2024-06-11 08:12 | disposition home or self-care (01) ==
PROVIDERS: Visit Provider Physician Assistant
DX: O99.810 Abnormal glucose complicating pregnancy (principal); Z3A.25 25 weeks gestation of pregnancy
CPT/HCPCS: 36415; 82951; 82952

== ENCOUNTER 2024-06-18 11:36 | Outpatient (OUT) | payer OTHER, SELFPAY ==
--- OUTSIDE RECORDS SUMMARY | 2024-06-18 11:43 | XMS_ITS | CCD ---
Author Organization [facility] Care Team Providers Care Quarter Inspector Name Role Phone THAO ., DR VELASCO Admitting Unavailable THAO ., DR VELASCO Attending Unavailable THAO ., DR VELASCO Primary Care Unavailable THAO ., DR VELASCO Consulting Unavailable THAO ., DR VELASCO Admitting Unavailable THAO ., DR VELASCO Attending Unavailable THAO ., DR VELASCO Primary Care Unavailable THAO ., DR VELASCO Consulting Unavailable THAO ., DR VELASCO Admitting Unavailable THAO ., DR VELASCO Attending Unavailable REQUEST, NONE LISTED Primary Care Unavaila ble HERRICK, DR DOROTHY Garcia Consulting Unavailable THAO ., DR VELASCO Consulting Unavailable THAO ., DR VELASCO Admitting Unavailable THAO ., DR VELASCO Attending Unavailable THAO ., DR VELASCO Primary Care Unavailable THAO ., DR VELASCO Consulting Unavailable THAO ., DR VELASCO Admitting Unavailable THAO ., DR VELASCO Attending Unavailable REQUEST, DR NONE LISTED Primary Care Unavaila ble THAO ., DR VELASCO Consulting Unavailable ZIEBER, DR MARGAUX Sifuentes Consulting Unavailable KINGSLEY .TIERNEY Consulting Unavailable THAOBELLAY R Referring Unavailable NO PCP, NO PCP Primary Care Unavailable ROD DELGADO R Referring Unavailable NO PCP, NO PCP Primary Care Unavailable Unavailable Primary Care Provider Unavailabl e ROD DELGADO Attending Unavailable ROD DELGADO Attending Unavailable ROD DELGADO Attending Unavailable TIERNEY WYNN Attending Unavailable ROD DELGADO Attending Unavailable Problems [...] Test Name Value Interpretation Reference Range Facility GLUCOSE TOLERANCE 3 HOURon 1 GLUCOSE TOLERANCE 3 HOUR mg/dL [facility] Comment on above: GLU FAST 81 (<95) Co l: 06/11/24 0820 GLU 1HR 122 (<180) Col: 06/11/24 0820 GLU 2HR 101 (<155) Col: 06/11/24 1021 GLU 3HR 74 (<140) Col: 06/11/24 1120 [facility] ALL CBC WITH AUTO DIFFon BASOPHILS ABSOLUTE AUTO 0.1 [facility] Basophils/100 WBC (Bld) 0.4 % 0.2 - 2.0 % [facility] Eosinophils/100 WBC (Bld) 1.2 % 0.9 - 7.0 % [facility] Erythrocyte distribution width (RBC) [Ratio] 12 % 11.0 - 15.0 % [facility] Hematocrit (Bld) [Volume fraction] 35.7 % Low 36.0 - 48.0 % [facility] Hemoglobin (Bld) [Mass/Vol] 12 g/dL 12.0 - 16.0 g/dL [facility] IMMATURE GRANULOCYTES ABS AUTO 0.09 High [facility] Immature granulocytes/100 WBC (Bld) 0.8 % High 0.0 - 0.5 % [facility] Interpretation and review of laboratory results Abnormal [facility] LYMPHOCYTES ABSOLUTE AUTO 2.2 [facility] Lymphocytes/100 WBC (Bld) 18.7 % Low 20.5 - 60.0 % [facility] MCH (RBC) [Entitic mass] 31.5 pg 26.7 - 34.0 pg [facility] MCHC (RBC) [Mass/Vol] 33.6 g/dL 29.9 - 35.2 g/dL [facility] MCV (RBC) [Entitic vol] 93.7 fL 81.0 - 99.0 fL [facility] MONOCYTES ABSOLUTE AUTO 0.4 [facility] Monocytes/100 WBC (Bld) 3.6 % 1.7 - 12.0 % [facility] NEUTROPHILS ABSOLUTE AUTO 8.9 High [facility] Neutrophils/100 WBC (Bld) 75.3 % High 43.0 - 75.0 % [facility] Platelet mean volume (Bld) [Entitic vol] 10 fL 9.5 - 13.5 fL [facility] TBH EO # 0.1 [facility] TB PLT 213 [facility] RBC 3.81 Low [facility] WBC 11.8 High [facility] Urinalysis macro (dipstick) panel (U)on 05-14-2024 Bilirubin, UA Negative Negative - 4(70) +++ mg/dL [facility] Blood, UA Negative Negative - 50 Jl/mcL [facility] Clarity, UA Clear [facility] Color, UA Yellow [facility] Glucose, UA Negative Negative - 1999(110) ++++ mg/dL [facility] Interpretation and review of laboratory results Normal [facility] Ketones, UA Negative Negative - 160(16) ++++ mg/dL [facility] Leukocytes, UA Negative Negative - 500+++ Juan/mcL [facility] Nitrite, UA Negative Negative - Positive [facility] pH, UA 6.5 5 - 9 [facility] Protein, UA Negative Negative - 1999(20) ++++ mg/dL [facility] Spec Grav, UA 1.025 1 - 1.03 [facility] Urobilinogen, UA 0.2 0.2 - 12 mg/dL [facility] HCG.beta subunit IA 3rd IS Q non 01-24-2024 HCG.beta subunit Qn 7740 m[IU]/mL Normal Pr [facility] Comment on above: Result Comment: NEW REFERENCE [...] neoplasms. Performed By: #### 2 0415-6 #### [facility] ([id number]) [address] [place] [address] US PREG ANATOMY SINGLEon US PREG ANATOMY [...] MARGAUX SANDERS Date: 2022-10-22 21:32 Normal [facility] CBC AUTO DIFFon 10-20-2022 BASO # 0.1 103/ul Normal 0.0-0.1 [facility] Comment on above: Performed By: #### C BC #### [facility] [address] [place] [address] Dr. Luis Edwards Basophils/100 WBC (Bld) 0.4 % Normal 0.2-2.0 [facility] Comment on above: Performed By: #### C BC #### [facility] [address] [place] [address] Dr. Luis Edwards EO # 0.3 103/ul Normal 0.0-0.7 [facility] Comment on above: Performed By: #### C BC #### [facility] [address] [place] [address] Dr. Luis Edwards Eosinophils/100 WBC (Bld) 1.7 % Normal 0.9-7.0 [facility] Comment on above: Performed By: #### C BC #### [facility] [address] [place] [address] Dr. Luis Edwards Erythrocyte distribution width (RBC) [Ratio] 13.1 % Normal 11.0-15.0 [facility] Comment on above: Performed By: #### C BC #### [facility] [address] [place] [address] Dr. Luis Edwards Hematocrit (Bld) [Volume fraction] 35.1 % Critically low 36.0-48.0 [facility] Comment on above: Performed By: #### C BC #### [facility] [address] [place] [address] Dr. Luis Edwards Hemoglobin (Bld) [Mass/Vol] 11.9 g/dL Critically low 12.0-16.0 [facility] Comment on above: Performed By: #### C BC #### [facility] [address] [place] [address] Dr. Luis Edwards IG # 0.17 10e3/ul Critically high 0.00-0.03 [facility] Comment on above: Performed By: #### C BC #### [facility] [address] [place] [address] Dr. Luis Edwards IG % 1.2 % Critically high 0.0-0.5 [facility] Comment on above: Performed By: #### C BC #### [facility] [address] [place] [address] Dr. Luis Edwards LYMPH # 2.3 103/ul Normal 1.2-3.8 [facility] Comment on above: Performed By: #### C BC #### [facility] [address] [place] [address] Dr. Luis Edwards Lymphocytes/100 WBC (Bld) 16.0 % Critically low 20.5-60.0 [facility] Comment on above: Performed By: #### C BC #### [facility] [address] [place] [address] Dr. Luis Edwards MANUAL DIFF REQ NO Normal [facility] Comment on above: Performed By: #### C BC #### [facility] [address] [place] [address] Dr. Luis Edwards MCH (RBC) [Entitic mass] 30.5 pg Normal 26.7-34.0 [facility] Comment on above: Performed By: #### C BC #### [facility] [address] [place] [address] Dr. Luis Edwards MCHC (RBC) [Mass/Vol] 33.9 g/dL Normal 29.9-35.2 [facility] Comment on above: Performed By: #### C BC #### [facility] [address] [place] [address] Dr. Luis Edwards MCV (RBC) [Entitic vol] 90.0 fL Normal 81.0-99.0 [facility] Comment on above: Performed By: #### C BC #### [facility] [address] [place] [address] Dr. Luis Edwards MONO # 0.6 103/ul Normal 0.3-0.8 [facility] Comment on above: Performed By: #### C BC #### [facility] [address] [address] [address] Luis Edwards Monocytes/100 WBC (Bld) 4.2 % Normal 1.7-12.0 [facility] Comment on above: Performed By: #### C BC #### [facility] [address] [address] [address] Luis Edwards NEUT # 11.2 103/ul Critically high 1.4-6.5 [facility] Comment on above: Performed By: #### C BC #### [facility] [address] [address] [address] Luis Edwards Neutrophils/100 WBC (Bld) 76.5 % Critically high 43.0-75.0 [facility] Comment on above: Performed By: #### C BC #### [facility] [address] [place] [address] Dr. Luis Edwards Platelet mean volume (Bld) [Entitic vol] 9.2 fL Critically low 9.5-13.5 [facility] Comment on above: Performed By: #### C BC #### [facility] [address] [place] [address] Dr. Luis Edwards PLT 247 103/ul Normal 150-450 [facility] Comment on above: Performed By: #### C BC #### [facility] [address] [address] [address] Luis Edwards RBC 3.90 106/ul Critically low 4.20-5.40 [facility] Comment on above: Performed By: #### C BC #### [facility] [address] [address] [address] Luis Edwards WBC 14.6 103/ul Critically high 4.0-11.0 [facility] Comment on above: Performed By: #### C BC #### [facility] [address] [address] [address] Luis Edwards GLUCOSE - 1HRon 10-20-2022 Glucose [Mass/Vol] 133 mg/dL Critically high 74-106 [facility] Comment on above: Performed By: #### C BC #### [facility] [address] [place] [address] Dr. Luis Edwards PAP ACOG PANEL 2: 20 to 28on 08-31-2022 . . Normal [facility] Comment on above: Performed By: #### [id number] #### [facility] [address] [place] [address] Dr. Luis Edwards Age Gdln ACOG Testing - [facility] Comment on above: Performed By: #### 4 [id number] #### [facility] [address] [place] [address] Dr. Luis Edwards DIAGNOSIS: Comment [facility] Comment on above: Result Comment: NEGA TIVE FOR INTRAEPITHELIAL LESION OR MALIGNANCY. PREDOMINANCE OF COCCOBACILLI CONSISTENT WITH SHIFT IN VAGINAL LUCRECIA IS PRESENT. Performed By: #### 4 [id number] #### [facility] [address] [place] [address] Dr. Luis Edwards Methodology: Comment [facility] Comment on above: Result Comment: This liquid based ThinPrep(R) pap test was screened with the use of an image guided system. Performed By: #### 4 [id number] #### [facility] [address] [place] [address] Dr. Luis Edwards Note: Comment [facility] Comment on above: Result Comment: The Pap smear is a screening test designed to aid in the detection of premalignant and malignant conditions of the uterine cervix. It is not a diagnostic procedure and should not be used as the sole means of detecting cervical cancer. Both false-positive and false-negative reports do occur. . Performed By: #### 4 [id number] #### [facility] [address] [place] [address] Dr. Luis Edwards Performed by: Comment [facility] Comment on above: Result Comment: Braydon Munoz, Industrial Tractor Driver Performed By: #### 4 [id number] #### [facility] [address] [place] [address] Dr. Luis Edwards Reflex Criteria: Comment [facility] Comment on above: Result Comment: The HPV DNA reflex criteria were not met with this specimen result therefore, no HPV testing was performed. . Performed By: #### 4 [id number] #### [facility] [address] [place] [address] Dr. Luis Edwards Specimen adequacy: Comment Normal [facility] Comment on above: Result Comment: Sati sfactory for evaluation. No endocervical component is identified. Performed By: #### 4 [id number] #### [facility] [address] [place] [address] Dr. Luis Edwards CHLAMYDIA/GONOCOCCUS TIANNA (SW AB/URINE/PAPon 08-30-2022 Chlamydia trachomatis, TIANNA Negative Normal Negative [facility] Comment on above: Performed By: #### C T/NGNA #### [facility] [address] [place] [address] Dr. Luis Edwards Neisseria gonorrhoeae, TIANNA Negative Normal Negative [facility] Comment on above: Performed By: #### C T/NGNA #### [facility] [address] [place] [address] Dr. Luis Edwards VAGINITIS/VAGINOSIS DNA PROB Benjamin 08-29-2022 Viktoria species Negative Normal Negative [facility] Comment on above: Performed By: #### C BC #### [facility] [address] [place] [address] Dr. Luis Edwards Gardnerella vaginalis Positive Abnormal Negative [facility] Comment on above: Performed By: #### C BC #### [facility] [address] [place] [address] Dr. Luis Edwards Trichomonas vaginalis Negative Normal Negative [facility] Comment on above: Performed By: #### C BC #### [facility] [address] [place] [address] Dr. Luis Edwards HEPATITIS C VIRUS AB W/ REFL EX QUANTon 07-22-2022 HCV AB <0.1 Normal 0.0-0.9 [facility] Comment on above: Performed By: #### H CVPCRR #### [facility] [address] [place] [address] Dr. Luis Edwards Interpretation: Comment Normal [facility] Comment on above: Result Comment: Nega tive Not infected with HCV, unless recent infection is suspected or other evidence exists to indicate HCV infection. Performed By: #### H CVPCRR #### [facility] [address] [place] [address] Dr. Luis Edwards HEP B SURFACE ANTIGEN SCREEN on 07-21-2022 HBsAg Screen Negative Normal Negative [facility] Comment on above: Performed By: #### H BSANS #### [facility] [address] [address] [address] Luis Edwards HIV 1 AND 2 WITH REFLEXon HIV Screen 4th Generation wRfx Non-Reactive Normal Non Reactive [facility] Comment on above: Result Comment: HIV Negative HIV-1/HIV-2 antibodies and HIV-1 p24 antigen were NOT detected. There is no laboratory evidence of HIV infection. Performed By: #### C BC #### [facility] [address] [place] [address] Dr. Luis Edwards RPR QUANTon 07-21-2022 Rapid Plasma Reagin, Quant Non-Reactive Normal NonRea<1:1 [facility] Comment on above: Result [...] utilized, such as Treponema pallidum (Syphilis) Screening [place] (565112) or Rapid Plasma Reagin (RPR) Test With Reflex to Quantitative RPR and Confirmatory Treponema pallidum Antibodies (306770). Performed By: #### R PRQ #### [facility] [address] [place] [address] Dr. Luis Edwards RUBELLA AB IGGon 07-21-2022 Rubella Antibodies, IgG 1.57 index Normal Immune >0.99 [facility] Comment on above: Result Comment: Non- immune <0.90 Equivocal 0.90 - 0.99 Immune >0.99 Performed By: #### R UBIGG #### [facility] [address] [place] [address] Dr. Luis Edwards CBC AUTO DIFFon 07-20-2022 BASO # 0.1 103/ul Normal 0.0-0.1 [facility] Comment on above: Performed By: #### C BC #### [facility] [address] [address] [address] Luis Edwards Basophils/100 WBC (Bld) 0.6 % Normal 0.2-2.0 [facility] Comment on above: Performed By: #### C BC #### [facility] [address] [address] [address] Luis Edwards EO # 0.2 103/ul Normal 0.0-0.7 [facility] Comment on above: Performed By: #### C BC #### [facility] [address] [address] [address] Luis Edwards Eosinophils/100 WBC (Bld) 2.0 % Normal 0.9-7.0 [facility] Comment on above: Performed By: #### C BC #### [facility] [address] [address] [address] Luis Edwards Erythrocyte distribution width (RBC) [Ratio] 13.6 % Normal 11.0-15.0 [facility] Comment on above: Performed By: #### C BC #### [facility] [address] [address] [address] Luis Edwards Hematocrit (Bld) [Volume fraction] 35.6 % Critically low 36.0-48.0 [facility] Comment on above: Performed By: #### C BC #### [facility] [address] [address] [address] Luis Edwards Hemoglobin (Bld) [Mass/Vol] 11.8 g/dL Critically low 12.0-16.0 [facility] Comment on above: Performed By: #### C BC #### [facility] [address] [address] [address] Luis Edwards IG # 0.03 10e3/ul Normal 0.00-0.03 [facility] Comment on above: Performed By: #### C BC #### [facility] [address] [place] [address] Dr. Luis Edwards IG % 0.3 % Normal 0.0-0.5 [facility] Comment on above: Performed By: #### C BC #### [facility] [address] [place] [address] Dr. Luis Edwards LYMPH # 1.9 103/ul Normal 1.2-3.8 [facility] Comment on above: Performed By: #### C BC #### [facility] [address] [place] [address] Dr. Luis Edwards Lymphocytes/100 WBC (Bld) 21.0 % Normal 20.5-60.0 [facility] Comment on above: Performed By: #### C BC #### [facility] [address] [place] [address] Dr. Luis Edwards MANUAL DIFF REQ NO Normal [facility] Comment on above: Performed By: #### C BC #### [facility] [address] [place] [address] Dr. Luis Edwards MCH (RBC) [Entitic mass] 28.7 pg Normal 26.7-34.0 [facility] Comment on above: Performed By: #### C BC #### [facility] [address] [place] [address] Dr. Luis Edwards MCHC (RBC) [Mass/Vol] 33.1 g/dL Normal 29.9-35.2 [facility] Comment on above: Performed By: #### C BC #### [facility] [address] [place] [address] Dr. Luis Edwards MCV (RBC) [Entitic vol] 86.6 fL Normal 81.0-99.0 [facility] Comment on above: Performed By: #### C BC #### [facility] [address] [place] [address] Dr. Luis Edwards MONO # 0.4 103/ul Normal 0.3-0.8 [facility] Comment on above: Performed By: #### C BC #### [facility] [address] [place] [address] Dr. Luis Edwards Monocytes/100 WBC (Bld) 4.9 % Normal 1.7-12.0 [facility] Comment on above: Performed By: #### C BC #### [facility] [address] [place] [address] Dr. Luis Edwards NEUT # 6.3 103/ul Normal 1.4-6.5 [facility] Comment on above: Performed By: #### C BC #### [facility] [address] [place] [address] Dr. Luis Edwards Neutrophils/100 WBC (Bld) 71.2 % Normal 43.0-75.0 [facility] Comment on above: Performed By: #### C BC #### [facility] [address] [place] [address] Dr. Luis Edwards Platelet mean volume (Bld) [Entitic vol] 10.1 fL Normal 9.5-13.5 [facility] Comment on above: Performed By: #### C BC #### [facility] [address] [place] [address] Dr. Luis Edwards PLT 262 103/ul Normal 150-450 [facility] Comment on above: Performed By: #### C BC #### [facility] [address] [place] [address] Dr. Luis Edwards RBC 4.11 106/ul Critically low 4.20-5.40 [facility] Comment on above: Performed By: #### C BC #### [facility] [address] [place] [address] Dr. Luis Edwards WBC 8.8 103/ul Normal 4.0-11.0 [facility] Comment on above: Performed By: #### C BC #### [facility] [address] [place], [place] [id number] Dr. Luis Edwards CULTURE URINEon 07-20-2022 CULTURE URINE Culture Observations : NO GROWTH. Normal [facility] Comment on above: Performed By: #### C BC #### [facility] [address] [place] [address] Dr. Luis Edwards GLYCOHEMOGLOBIN A1Con 2021 ADA RECOMMENDATION SEE BELOW Normal [facility] Comment on above: Result Comment: ADA RECOMMENDED LIMIT 4.0 - 6.0 ADA THERAPEUTIC TARGET < 7.0 ACTION SUGGESTED > 7.0 Performed By: #### A 1C #### [facility] [address] [place] [address] Dr. Luis Edwards Glucose [Mass/Vol] 103 mg/dL Normal [facility] Comment on above: Performed By: #### A 1C #### [facility] [address] [place] [address] Dr. Luis Edwards HbA1c (Bld) [Mass fraction] 5.2 % Normal 4.5-6.2 [facility] Comment on above: Performed By: #### A 1C #### [facility] [address] [place] [address] Dr. Luis Edwards ZAKI BOX TEST PT SEND OUTo n 07-20-2022 SENT TO REF LAB 07/20/2022 Normal [facility] Comment on above: Performed By: #### N BOX #### [facility] [address] [place] [address] Dr. Luis Edwards TYPE AND SCREENon 07-20-2022 TYPE AND SCREEN Negative Normal [facility] Comment on above: Performed By: #### C BC #### [facility] [address] [place] [address] Dr. Luis Edwards US PREG <14 WKSon [...] by: DOROTHY MCCULLOUGH Date: 2022-07-20 16:09 Normal [facility] Vital Signs Date Time Vital Sign Value Performing Clinician Faci lity 05-14-2024 14:29-0400 Body mass index (BMI) [Ratio] 27.29 kg/m2 Tierney Kingsley PA Work Phone: [facility] 05-14-2024 14:29-0400 Body weight 74.39 kg Tierney Dublin PA Work Phone: [facility] 05-14-2024 14:29-0400 Diastolic blood pressure 64 mm[Hg] Tierney PRECIADO Work Phone: [facility] 05-14-2024 14:29-0400 Systolic blood pressure 110 mm[Hg] Tierney Kingsley PA Work Phone: [facility] Healthcare Encounters Encounter Date Encounter Type Care Provider Facility Start: 06-16-2024 End: 06-16-2024 ambulatory ROD THAO Not Available Start: 06-16-2024 End: 06-16-2024 Bamboo flowsheet Rod Thao DO Work Phone: [facility] Start: 06-16-2024 End: 06-16-2024 Bamboo flowsheet Rod Thao DO Work Phone: [facility] Start: 06-11-2024 End: 06-11-2024 [facility] Result Encounter Tierney PRECIADO Work Phone: [facility] External Department Unsolicited Start: 06-11-2024 End: 06-11-2024 [facility] Result Encounter Tierney Dublin PA Work Phone: [facility] External Department Unsolicited Start: 06-04-2024 End: 06-04-2024 [facility] Result Encounter Tierney Dublin PA Work Phone: [facility] External Department Unsolicited Start: 06-04-2024 End: 06-04-2024 [facility] Result Encounter Tierney PRECIADO Work Phone: [facility] Unsolicited Start: 05-14-2024 End: 05-14-2024 flow sheet Tierney PRECIADO Work Phone: [facility] Comment on above: Second trimester pre gnancy; 22 weeks gestation of ; Diabetes mellitus screening Start: 05-14-2024 End: 05-14-2024 ambulatory TIERNEY WYNN Not Available Start: 05-14-2024 End: 05-14-2024 Bamboo flowsheet Tierney PRECIADO Work Phone: [facility] Start: 05-14-2024 End: 05-14-2024 Bamboo flowsheet Tierney PRECIADO Work Phone: [facility] Start: 04-16-2024 End: 04-16-2024 ambulatory ROD THAO Not Available Start: 03-06-2024 End: 03-06-2024 ambulatory ROD R THAO [facility] Start: 02-21-2024 End: 02-21-2024 ambulatory ROD THAO Not Available Start: 01-24-2024 End: 01-24-2024 ambulatory ROD R THAO [facility] Start: 01-09-2024 End: 01-09-2024 ambulatory ROD THAO Not Available Start: 12-09-2023 End: 12-09-2023 ambulatory ROD THAO Not Available Start: 10-20-2022 End: 10-21-[address] ROD DELGADO . Facility: Start: 08-27-2022 End: 08-27-[address] ROD DELGADO . Facility: Start: 07-20-2022 End: 07-21-[address] ROD DELGADO . Facility:[facility] Start: 07-20-2022 End: 07-21-[address] ROD DELGADO . Facility: Procedures Date Procedure Procedure Detail Performing Clinician Start: 06-11-2024 GLUCOSE TOLERANCE 3 HOUR Tierney PRECIADO Work Phone: Start: 06-04-2024 ALL CBC WITH AUTO DIFF Tierney PRECIADO Work Phone: Start: 05-14-2024 Urnls dip stick/tabl et rgnt non-auto w/o micrscp Tierney PRECIADO Work Phone: Plan of Treatment Date Care Activity Detail Author Start: 06-16-2024 End: 06-16-2024 Patient encounter procedure [facility] Comment on above: Arrived Start: 05-14-2024 End: 05-14-2024 Patient encounter procedure 05/14/2024 2:20 PM EDT Routine [facility] [address] [place] [address] Tierney Wynn PA [address] [place] [address] Arrived [facility] Comment on above: Arrived Start: 05-14-2024 End: 05-14-2025 CBC panel - Blood by Automated count CBC Lab Routine Diabetes mellitus screening Expected: 05/14/2024 (Approximate), Expires: 05/14/2025 [facility] Work Phone: Comment on above: Expected: 05/14/2024 (Approximate), Expires: 05/14/2025 Start: 05-14-2024 End: 05-14-2025 Measurement of glucose 1 hour after glucose challenge for glucose tolerance test Glucose tolerance, 1 hour Lab Routine Diabetes mellitus screening Expected: 05/14/2024 (Approximate), Expires: 05/14/2025 [facility] Comment on above: Expected: 05/14/2024 (Approximate), Expires: 05/14/2025 Payers Date Payer Category Payer Private Health Insurance [id number] 2020 Medicaid [employer] [id number] 2020-Present [address] [place] [id number] 2020 Medicaid (Managed Care) [facility] MEDICAID [id number] 1994 Unknown [id number] 2.16.840.1.233586.3.579.2. 593 1994 Unknown [id number] 2.16.840.1.823850.3.579.2. 593 1994 Unknown [id number] 2.16.840.1.421388.3.579.2. 593 1994 Unknown [id number] 2.16.840.1.086507.3.579.2. 593 1994 Unknown [id number] 2.16.840.1.884350.3.579.2. 1286 1994 Unknown [id number] 2.16.840.1.096259.3.579.2. 1286 1994 Unknown [id number] 2.16.840.1.294933.3.579.2. 1259 1994 Unknown [id number] 2.16.840.1.157316.3.579.2. 1259 1994 Unknown [id number] 2.16.840.1.702061.3.579.2. 1259 1994 Unknown [id number] 2.16.840.1.305717.3.579.2. 1259 1994 Unknown [id number] 2.16.840.1.028049.3.579.2. 1259 1994 Unknown [id number] 2.16.840.1.539290.3.579.2. 1259 1959 Self-pay [id number] 1959 Unknown [id number] 1959 Unknown [id number] Unknown [id number] 2.16.840.1.890006.3.579.2. 593 Social History Date Type Detail Facility Start: 01-19-2023 Tobacco smoking stat us NHIS Never smoked tobacco [facility] Start: 01-19-2023 Tobacco use and exposure Smoke less tobacco non-user [facility] Start: 04-16-2024 End: 05-14-2024 Alcoholic beverage intake Lifetime non-drinker (finding) [facility] Start: 12-09-2023 History of Social function [facility] Start: 12-09-2023 Tobacco use panel [facility] Start: 12-26-2023 [facility] Start: 1995 Sex assigned at Not on file [facility] History of Present illness Narrative 05-14-2024 ILANA Rubio - 05/14/2024 2:20 PM EDT Note Date & Type Note Facility 05-14-2024 History of Presen t illness Narrative Reason for Appointment: Patient ID: Lexis Kemp is a 28 y.o. female who [...] and content) DATE CREATED AUTHOR 10/23/2022 [facility] DATE CREATED AUTHOR AUTHOR'S ORGANIZ ATION 03/07/2024 [facility] DATE CREATED AUTHOR AUTHOR'S ORGANIZ ATION 06/18/2024 [facility] EPIC Reason for Visit (unrecogniz [...] BE BASED ON THE PRIMARY CLINICAL RECORDS. [facility] [employer] [facility]. provides no warranty or guarantee of the accuracy or completeness of information in this document.
--- NOTE | 2024-06-18 11:44 | US_ITS ---
The [address] [address] Patient Name: LEXIS OQUENDO MRN: [id number] date: 1995 Sex: F Assigned Patient Location: US Current Patient Location: Accession/Order Number: [id number] Exam Date: 06/18/2024 11:50 Report Date: 06/19/2024 05:35 At the request of: ROD DELGADO Procedure: US OB follow up EXAMINATION: US OB follow up HISTORY: Encounter For Follow Up Ultrasound Of Anatomy COMPARISON: Ultrasound OB anatomy 05/02/2024 FINDINGS: Heart rate: 141 bpm Presentation: Cephalic Amniotic fluid: Subjectively normal Anatomy: 2 mm echogenic focus within left cardiac ventricle. GA: 27 weeks 0 days DANIEL: 09/17/2024 US/US OB follow up IMPRESSION: 1. Single live intrauterine . 2. Persistent echogenic focus within left cardiac ventricle. Electronically authenticated by: MARGAUX SANDERS Date: 06/19/2024 05:35
== END 2024-06-18 11:37 | disposition home or self-care (01) ==
LOC: US 11:36
PROVIDERS: Visit Provider Obstetrics & Gynecology
DX: Z36.2 Encounter for other antenatal screening follow-up (principal)
CPT/HCPCS: 76816

== ENCOUNTER 2024-07-15 13:27 | Outpatient (OUT) | payer OTHER, SELFPAY ==
--- NOTE | 2024-07-15 13:45 | US_ITS ---
[address] [address] Patient Name: LEXIS OQUENDO MRN: [id number] date: 1995 Sex: F Assigned Patient Location: US Current Patient Location: US Accession/Order Number: [id number] Exam Date: 07/15/2024 13:46 Report Date: 07/15/2024 15:14 At the request of: ROD DELGADO Procedure: US OB growth EXAMINATION: US OB growth HISTORY: Size Inconsistent With Dates COMPARISON: No relevant comparison available. TECHNIQUE: Transabdominal sonographic examination was performed for obstetrical and evaluation. FINDINGS: Number: 1 Heart Rate: 135 bpm H.B. /min Amniotic Fluid Volume: 17.15 6.7 cm Cephalic presentation, longitudinal lie BIOMETRY: BPD: 7.84 cm; 31 weeks 3 days; 58.30 % HC: 29.37 cm; 32 weeks 3 days; 58 % AC: 26.98 cm; 31 weeks 1 day; 53.10 % FL: 5.63 cm; 29 weeks 4 days; 9 % EFW:1635.62 g; 34.40 %, 3 lbs. 10 oz. FL/AC: 20.85 FL/BPD: 71.73 HC/AC: 1.09 GESTATIONAL AGE: Age by EDC: 30 weeks 6 days DANIEL by EDC: 2024-09-17 Age by current US: 31 weeks 1 day DANIEL by current US: 2024-09-15 US/US OB growth IMPRESSION: Normal interval growth *Reference: [facility] Practice Guideline for the performance of Obstetric Ultrasound Examinations, May 12, 2007. Electronically authenticated by: DOROTHY MCCULLOUGH Date: 07/15/2024 15:14
--- OUTSIDE RECORDS SUMMARY | 2024-07-15 13:49 | XMS_ITS | CCD ---
Author Organization [facility] Care Team Providers Care Credit Representative Name Role Phone THAO ., DR VELASCO [...] DR NONE LISTED Primary Care Unavaila ble ANAHEIM, DR DOROTHY Garcia Consulting Unavailable THAO ., [...] Consulting Unavailable KINGSLEY ., TIERNEY Consulting Unavailable BELLA OSUNAY R Referring Unavailable NO PCP, NO PCP Primary Care Unavailable THAOROD DHALIWAL R Referring Unavailable NO PCP, NO PCP Primary Care Unavailable Unavailable Primary Care Provider Unavailabl e ROD OSUNA Attending Unavailable ROD OSUNA Attending Unavailable TIERNEY WYNN Attending Unavailable TIERNEY WYNN Attending Unavailable THAOROD DHALIWAL Attending Unavailable THAOROD DHALIWAL Attending Unavailable Problems Problem Classification Problem Date Documented Date Episodic/Chronic Immunizations and screening for infectious disease (1 source) Encounter for screening for human papillomavirus (HPV); Translations: [ENC SCREENING HUMAN PAPILLOMAVIRUS] Onset: 09-01-2022 Episodic Menstrual disorders (6 sources) Irregular menstruation, unspecified; Translations: [IRREGULAR MENSTRUATION UNSPECIFIED] Onset: 07-20-2022 Chronic Other complications of (2 sources) size does not accord with dates; Translations: [Uterine size-date discrepancy, unspecified trimester] 07-02-2024 Episodic Other and delivery including normal (15 sources) Encounter for supervision of normal , [...] [22 weeks gestation of ] 05-14-2024 Episodic Residual codes; unclassified (2 sources) Gestation period, 26 weeks; Translations: [26 weeks gestation of ] 06-16-2024 Episodic Results Test Name Value Interpretation Reference Range Facility Urinalysis macro (dipstick) panel (U)on 06-16-2024 Bilirubin, UA Negative Negative - 4(70) +++ mg/dL [facility] Blood, UA Negative Negative - 50 Jl/mcL [facility] Clarity, UA Clear [facility] Color, UA Yellow [facility] Glucose, UA Negative Negative - 1999(110) ++++ mg/dL [facility] Interpretation and review of laboratory results Normal [facility] Ketones, UA Negative Negative - 160(16) ++++ mg/dL [facility] Leukocytes, UA Negative Negative - 500+++ Juan/mcL [facility] Nitrite, UA Negative Negative - Positive [facility] pH, UA 6 5 - 9 [facility] Protein, UA Negative Negative - 2000(20) ++++ mg/dL [facility] Spec Grav, UA 1.03 1 - 1.03 [facility] Urobilinogen, UA 0.2 0.2 - 12 mg/dL [facility] GLUCOSE TOLERANCE 3 HOURon 1 GLUCOSE TOLERANCE 3 HOUR mg/dL [facility] Comment on above: GLU FAST 81 (<95) Co l: 06/11/24 0820 GLU 1HR 122 (<180) Col: 06/11/24 0820 GLU 2HR 101 (<155) Col: 06/11/24 1021 GLU 3HR 74 (<140) Col: 06/11/[address] [facility] ALL CBC WITH AUTO DIFFon BASOPHILS ABSOLUTE AUTO 0.1 [facility] Basophils/100 WBC (Bld) 0.4 % 0.2 - 2.0 % [facility] Eosinophils/100 WBC (Bld) 1.2 % 0.9 - 7.0 % [facility] Erythrocyte distribution width (RBC) [Ratio] 12 % 11.0 - 15.0 % [facility] Hematocrit (Bld) [Volume fraction] 35.7 % Low 36.0 - 48.0 % [facility] Hemoglobin (Bld) [Mass/Vol] 12 g/dL 12.0 - 16.0 g/dL [facility] IMMATURE GRANULOCYTES ABS AUTO 0.[address] [facility] Immature granulocytes/100 WBC (Bld) 0.8 % High 0.0 - 0.5 % [facility] Interpretation and review of laboratory results Abnormal [facility] LYMPHOCYTES ABSOLUTE AUTO 2.2 [facility] Lymphocytes/100 WBC (Bld) 18.7 % Low 20.5 - 60.0 % [facility] MCH (RBC) [Entitic mass] 31.5 pg 26.7 - 34.[address] [facility] MCHC (RBC) [Mass/Vol] 33.6 g/dL 29.9 - 35.2 g/dL [facility] MCV (RBC) [Entitic vol] 93.7 fL 81.0 - 99.[address] [facility] MONOCYTES ABSOLUTE AUTO 0.4 [facility] Monocytes/100 WBC (Bld) 3.6 % 1.7 - 12.0 % [facility] NEUTROPHILS ABSOLUTE AUTO 8.[address] [facility] Neutrophils/100 WBC (Bld) 75.3 % High 43.0 - 75.0 % [facility] Platelet mean volume (Bld) [Entitic vol] 10 fL 9.5 - 13.[address] [facility] TBH EO # 0.1 [facility] PLT 213 [facility] TB RBC 3.[address] [facility] TB WBC 11.[address] [facility] Urinalysis macro (dipstick) panel (U)on 05-14-2024 Bilirubin, UA Negative Negative - 4(70) +++ mg/dL [facility] Blood, UA Negative Negative - 50 Jl/mcL [facility] Clarity, UA Clear [facility] Color, UA Yellow [facility] Glucose, UA Negative Negative - 1999(110) ++++ mg/dL [facility] Interpretation and review of laboratory results Normal [facility] Ketones, UA Negative Negative - 160(16) ++++ mg/dL [facility] Leukocytes, UA Negative Negative - 500+++ Juan/mcL [facility] Nitrite, UA Negative Negative - Positive [facility] pH, UA 6.5 5 - 9 [facility] Protein, UA Negative Negative - 1999(20) ++++ mg/dL [facility] Spec Grav, UA 1.025 1 - 1.03 [facility] Urobilinogen, UA 0.2 0.2 - 12 mg/dL [facility] HCG.beta subunit IA 3rd IS Q non 01-24-2024 HCG.beta subunit Qn 7740 m[IU]/mL Normal Pr [facility] Comment on above: Result Comment: NEW REFERENCE [...] neoplasms. Performed By: #### 2 0415-6 #### [facility] ([id number]) [address] [place] [address] US PREG ANATOMY SINGLEon US PREG ANATOMY [...] MARGAUX SANDERS Date: 2022-10-22 21:32 Normal [facility] CBC AUTO DIFFon 10-20-2022 BASO # 0.1 103/ul Normal 0.0-0.1 [facility] Comment on above: Performed By: #### C BC #### [facility] [address] [address] [address] Luis Edwards Basophils/100 WBC (Bld) 0.4 % Normal 0.2-2.0 [facility] Comment on above: Performed By: #### C BC #### [facility] [address] [address] [address] Luis Edwards EO # 0.3 103/ul Normal 0.0-0.7 [facility] Comment on above: Performed By: #### C BC #### [facility] [address] [address] [address] Luis Edwards Eosinophils/100 WBC (Bld) 1.7 % Normal 0.9-7.0 [facility] Comment on above: Performed By: #### C BC #### [facility] [address] [place] [address] Dr. Luis Edwards Erythrocyte distribution width (RBC) [Ratio] 13.1 % Normal 11.0-15.0 [facility] Comment on above: Performed By: #### C BC #### [facility] [address] [place] [address] Dr. Luis Edwards Hematocrit (Bld) [Volume fraction] 35.1 % Critically low 36.0-48.0 [facility] Comment on above: Performed By: #### C BC #### [facility] [address] [place] [address] Dr. Luis Edwards Hemoglobin (Bld) [Mass/Vol] 11.9 g/dL Critically low 12.0-16.0 [facility] Comment on above: Performed By: #### C BC #### [facility] [address] [place] [address] Dr. Luis Edwards IG # 0.17 10e3/ul Critically high 0.00-0.03 [facility] Comment on above: Performed By: #### C BC #### [facility] [address] [place] [address] Dr. Luis Edwards IG % 1.2 % Critically high 0.0-0.5 [facility] Comment on above: Performed By: #### C BC #### [facility] [address] [place] [address] Dr. Luis Edwards LYMPH # 2.3 103/ul Normal 1.2-3.8 [facility] Comment on above: Performed By: #### C BC #### [facility] [address] [place] [address] Dr. Luis Edwards Lymphocytes/100 WBC (Bld) 16.0 % Critically low 20.5-60.0 [facility] Comment on above: Performed By: #### C BC #### [facility] [address] [place] [address] Dr. Luis Edwards MANUAL DIFF REQ NO Normal [facility] Comment on above: Performed By: #### C BC #### [facility] [address] [address] [address] Luis Edwards MCH (RBC) [Entitic mass] 30.5 pg Normal 26.7-34.0 [facility] Comment on above: Performed By: #### C BC #### [facility] [address] [address] [address] Luis Edwards MCHC (RBC) [Mass/Vol] 33.9 g/dL Normal 29.9-35.2 [facility] Comment on above: Performed By: #### C BC #### [facility] [address] [address] [address] Luis Edwards MCV (RBC) [Entitic vol] 90.0 fL Normal 81.0-99.0 [facility] Comment on above: Performed By: #### C BC #### [facility] [address] [place] [address] Dr. Luis Edwards MONO # 0.6 103/ul Normal 0.3-0.8 [facility] Comment on above: Performed By: #### C BC #### [facility] [address] [place] [address] Dr. Luis Edwards Monocytes/100 WBC (Bld) 4.2 % Normal 1.7-12.0 [facility] Comment on above: Performed By: #### C BC #### [facility] [address] [address] [address] Luis Edwards NEUT # 11.2 103/ul Critically high 1.4-6.5 [facility] Comment on above: Performed By: #### C BC #### [facility] [address] [address] [address] Luis Edwards Neutrophils/100 WBC (Bld) 76.5 % Critically high 43.0-75.0 [facility] Comment on above: Performed By: #### C BC #### [facility] [address] [place] [address] Dr. Luis Edwards Platelet mean volume (Bld) [Entitic vol] 9.2 fL Critically low 9.5-13.5 [facility] Comment on above: Performed By: #### C BC #### [facility] [address] [address] [address] Luis Edwards PLT 247 103/ul Normal 150-450 [facility] Comment on above: Performed By: #### C BC #### [facility] [id number] Luis Edwards RBC 3.90 106/ul Critically low 4.20-5.40 [facility] Comment on above: Performed By: #### C BC #### [facility] [address] [address] [address] Luis Edwards WBC 14.6 103/ul Critically high 4.0-11.0 [facility] Comment on above: Performed By: #### C BC #### [facility] [address] [address] [address] Luis Edwards GLUCOSE - 1HRon 10-20-2022 Glucose [Mass/Vol] 133 mg/dL Critically high 74-106 [facility] Comment on above: Performed By: #### C BC #### [facility] [address] [address] [address] Luis Edwards PAP ACOG PANEL 2: 21 to 28on 08-31-2022 . . Normal [facility] Comment on above: Performed By: #### [id number] #### [facility] [address] [address] [address] Luis Edwards Age Gdln ACOG Testing - [facility] Comment on above: Performed By: #### [id number] #### [facility] [address] [address] [address] Luis Edwards DIAGNOSIS: Comment [facility] Comment on above: Result Comment: NEGA TIVE FOR INTRAEPITHELIAL LESION OR MALIGNANCY. PREDOMINANCE OF COCCOBACILLI CONSISTENT WITH SHIFT IN VAGINAL LUCRECIA IS PRESENT. Performed By: #### 4 [id number] #### [facility] [address] [address] [address] Luis Edwards Methodology: Comment Normal [facility] Comment on above: Result Comment: This liquid based ThinPrep(R) pap test was screened with the use of an image guided system. Performed By: #### [id number] #### [facility] [address] [place] [address] Dr. Luis Edwards Note: Comment Normal [facility] Comment on above: Result Comment: The Pap smear is a screening test designed to aid in the detection of premalignant and malignant conditions of the uterine cervix. It is not a diagnostic procedure and should not be used as the sole means of detecting cervical cancer. Both false-positive and false-negative reports do occur. . Performed By: #### 4 [id number] #### [facility] [address] [place] [address] Dr. Luis Edwards Performed by: Comment Normal [facility] Comment on above: Result Comment: Braydon Munoz, Fleet Dispatch Manager Performed By: #### 4 [id number] #### [facility] [address] [place] [address] Dr. Luis Edwards Reflex Criteria: Comment Normal [facility] Comment on above: Result Comment: The HPV DNA reflex criteria were not met with this specimen result therefore, no HPV testing was performed. . Performed By: #### 4 [id number] #### [facility] [address] [place] [address] Dr. Luis Edwards Specimen adequacy: Comment Normal [facility] Comment on above: Result Comment: Sati sfactory for evaluation. No endocervical component is identified. Performed By: #### 4 [id number] #### [facility] [address] [place] [address] Dr. Luis Edwards CHLAMYDIA/GONOCOCCUS TIANNA (SW AB/URINE/PAPon 08-30-2022 Chlamydia trachomatis, TIANNA Negative Normal Negative [facility] Comment on above: Performed By: #### C T/NGNA #### [facility] [address] [place] [address] Dr. Luis Edwards Neisseria gonorrhoeae, TIANNA Negative Normal Negative [facility] Comment on above: Performed By: #### C T/NGNA #### [facility] [address] [place] [address] Dr. Luis Edwards VAGINITIS/VAGINOSIS DNA PROB Benjamin 08-29-2022 Viktoria species Negative Normal Negative [facility] Comment on above: Performed By: #### C BC #### [facility] [address] [place] [address] Dr. Luis Edwards Gardnerella vaginalis Positive Abnormal Negative [facility] Comment on above: Performed By: #### C BC #### [facility] [address] [place] [address] Dr. Luis Edwards Trichomonas vaginalis Negative Normal Negative [facility] Comment on above: Performed By: #### C BC #### [facility] [address] [place] [address] Dr. Luis Edwards HEPATITIS C VIRUS AB W/ REFL EX QUANTon 07-22-2022 HCV AB <0.1 Normal 0.0-0.9 [facility] Comment on above: Performed By: #### H CVPCRR #### [facility] [address] [place] [address] Dr. Luis Edwards Interpretation: Comment Normal [facility] Comment on above: Result Comment: Nega tive Not infected with HCV, unless recent infection is suspected or other evidence exists to indicate HCV infection. Performed By: #### H CVPCRR #### [facility] [address] [place] [address] Dr. Luis Edwards HEP B SURFACE ANTIGEN SCREEN on 07-21-2022 HBsAg Screen Negative Normal Negative [facility] Comment on above: Performed By: #### H BSANS #### [facility] [address] [place] [address] Dr. Luis Edwards HIV 1 AND 2 WITH REFLEXon HIV Screen 4th Generation wRfx Non-Reactive Normal Non Reactive [facility] Comment on above: Result Comment: HIV Negative HIV-1/HIV-2 antibodies and HIV-1 p24 antigen were NOT detected. There is no laboratory evidence of HIV infection. Performed By: #### C BC #### [facility] [address] [place] [address] Dr. Luis Edwards RPR QUANTon 07-21-2022 Rapid Plasma Reagin, Quant Non-Reactive Normal NonRea<1:1 [facility] Comment on above: Result Comment: Plea se Note: This test does not meet current guidelines for screening and diagnosis of syphilis. This test is intended for following treatment response in patients being treated for syphilis infection. To screen for syphilis infection, a reflex cascade that includes both RPR and a treponema-specific assay should be utilized, such as Treponema pallidum (Syphilis) Screening [place] (602392) or Rapid Plasma Reagin (RPR) Test With Reflex to Quantitative RPR and Confirmatory Treponema pallidum Antibodies (197874). Performed By: #### R PRQ #### [facility] [address] [place] [address] Dr. Luis Edwards RUBELLA AB IGGon 07-21-2022 Rubella Antibodies, IgG 1.57 index Normal Immune >0.99 [facility] Comment on above: Result Comment: Non- immune <0.90 Equivocal 0.90 - 0.99 Immune >0.99 Performed By: #### R UBIGG #### [facility] [address] [place] [address] Dr. Luis Edwards CBC AUTO DIFFon 07-20-2022 BASO # 0.1 103/ul Normal 0.0-0.1 [facility] Comment on above: Performed By: #### C BC #### [facility] [address] [place] [address] Dr. Luis Edwards Basophils/100 WBC (Bld) 0.6 % Normal 0.2-2.0 [facility] Comment on above: Performed By: #### C BC #### [facility] [address] [place] [address] Dr. Luis Edwards EO # 0.2 103/ul Normal 0.0-0.7 [facility] Comment on above: Performed By: #### C BC #### [facility] [address] [place] [address] Dr. Luis Edwards Eosinophils/100 WBC (Bld) 2.0 % Normal 0.9-7.0 [facility] Comment on above: Performed By: #### C BC #### [facility] [address] [place] [address] Dr. Luis Edwards Erythrocyte distribution width (RBC) [Ratio] 13.6 % Normal 11.0-15.0 [facility] Comment on above: Performed By: #### C BC #### [facility] [address] [place] [address] Dr. Luis Edwards Hematocrit (Bld) [Volume fraction] 35.6 % Critically low 36.0-48.0 [facility] Comment on above: Performed By: #### C BC #### [facility] [address] [place] [address] Dr. Luis Edwards Hemoglobin (Bld) [Mass/Vol] 11.8 g/dL Critically low 12.0-16.0 [facility] Comment on above: Performed By: #### C BC #### [facility] [address] [place] [address] Dr. Luis Edwards IG # 0.03 10e3/ul Normal 0.00-0.03 [facility] Comment on above: Performed By: #### C BC #### [facility] [address] [place] [address] Dr. Luis Edwards IG % 0.3 % Normal 0.0-0.5 [facility] Comment on above: Performed By: #### C BC #### [facility] [address] [place] [address] Dr. Luis Edwards LYMPH # 1.9 103/ul Normal 1.2-3.8 [facility] Comment on above: Performed By: #### C BC #### [facility] [address] [place] [address] Dr. Luis Edwards Lymphocytes/100 WBC (Bld) 21.0 % Normal 20.5-60.0 [facility] Comment on above: Performed By: #### C BC #### [facility] [address] [place] [address] Dr. Luis Edwards MANUAL DIFF REQ NO Normal [facility] Comment on above: Performed By: #### C BC #### [facility] [address] [place] [address] Dr. Luis Edwards MCH (RBC) [Entitic mass] 28.7 pg Normal 26.7-34.0 [facility] Comment on above: Performed By: #### C BC #### [facility] [address] [place] [address] Dr. Luis Edwards MCHC (RBC) [Mass/Vol] 33.1 g/dL Normal 29.9-35.2 [facility] Comment on above: Performed By: #### C BC #### [facility] [address] [place] [address] Dr. Luis Edwards MCV (RBC) [Entitic vol] 86.6 fL Normal 81.0-99.0 [facility] Comment on above: Performed By: #### C BC #### [facility] [address] [place] [address] Dr. Luis Edwards MONO # 0.4 103/ul Normal 0.3-0.8 [facility] Comment on above: Performed By: #### C BC #### [facility] [address] [place] [address] Dr. Luis Edwards Monocytes/100 WBC (Bld) 4.9 % Normal 1.7-12.0 [facility] Comment on above: Performed By: #### C BC #### [facility] [address] [place] [address] Dr. Luis Edwards NEUT # 6.3 103/ul Normal 1.4-6.5 [facility] Comment on above: Performed By: #### C BC #### [facility] [address] [place] [address] Dr. Luis Edwards Neutrophils/100 WBC (Bld) 71.2 % Normal 43.0-75.0 [facility] Comment on above: Performed By: #### C BC #### [facility] [address] [place] [address] Dr. Luis Edwards Platelet mean volume (Bld) [Entitic vol] 10.1 fL Normal 9.5-13.5 [facility] Comment on above: Performed By: #### C BC #### [facility] [address] [place] [address] Dr. Luis Edwards PLT 262 103/ul Normal 150-450 [facility] Comment on above: Performed By: #### C BC #### [facility] [address] [place] [address] Dr. Luis Edwards RBC 4.11 106/ul Critically low 4.20-5.40 [facility] Comment on above: Performed By: #### C BC #### [facility] [address] [place] [address] Dr. Luis Edwards WBC 8.8 103/ul Normal 4.0-11.0 [facility] Comment on above: Performed By: #### C BC #### [facility] [address] [place] [address] Dr. Luis Edwards CULTURE URINEon 07-20-2022 CULTURE URINE Culture Observations : NO GROWTH. Normal [facility] Comment on above: Performed By: #### C BC #### [facility] [address] [place] [address] Dr. Luis Edwards GLYCOHEMOGLOBIN A1Con 2021 ADA RECOMMENDATION SEE BELOW Normal [facility] Comment on above: Result Comment: ADA RECOMMENDED LIMIT 4.0 - 6.0 ADA THERAPEUTIC TARGET < 7.0 ACTION SUGGESTED > 7.0 Performed By: #### A 1C #### [facility] [address] [place] [address] Dr. Luis Edwards Glucose [Mass/Vol] 103 mg/dL Normal [facility] Comment on above: Performed By: #### A 1C #### [facility] [address] [place] [address] Dr. Luis Edwards HbA1c (Bld) [Mass fraction] 5.2 % Normal 4.5-6.2 [facility] Comment on above: Performed By: #### A 1C #### [facility] [address] [place] [address] Dr. Luis HAINES BOX TEST PT SEND OUTo n 07-20-2022 SENT TO REF LAB 07/20/2022 Normal [facility] Comment on above: Performed By: #### N BOX #### [facility] [address] [address] [address] Luis Edwards TYPE AND SCREENon 07-20-2022 TYPE AND SCREEN Negative Normal [facility] Comment on above: Performed By: #### C #### [facility] [address] [address] [address] Luis [place] US PREG <14 WKSon [...] by: DOROTHY MCCULLOUGH Date: 2022-07-20 16:09 Normal [facility] Vital Signs Date Time Vital Sign Value Performing Clinician Ryan clemente 07-02-2024 14:55-0500 Body mass index (BMI) [Ratio] 29.69 kg/m2 Tierney Wynn PA Work Phone: [facility] 07-02-2024 14:55-0500 Body weight 80.92 kg Tierney Wynn PA Work Phone: [facility] 07-02-2024 14:55-0500 Diastolic blood pressure 62 mm[Hg] Tierney Wynn PA Work Phone: [facility] 07-02-2024 14:55-0500 Systolic blood pressure 106 mm[Hg] Tierney Wynn PA Work Phone: [facility] 06-16-2024 14:58-0500 Body mass index (BMI) [Ratio] 28.96 kg/m2 Rod Thao DO Work Phone: [facility] 06-16-2024 14:58-0500 Body weight 78.93 kg Rod Thao DO Work Phone: [facility] 06-16-2024 14:58-0500 Diastolic blood pressure 62 mm[Hg] Rod Thao DO Work Phone: [facility] 06-16-2024 14:58-0500 Systolic blood pressure 114 mm[Hg] Rod Thao DO Work Phone: [facility] 05-14-2024 14:29-0400 Body mass index (BMI) [Ratio] 27.29 kg/m2 Tierney PRECIADO Work Phone: [facility] 05-14-2024 14:29-0400 Body weight 74.39 kg Tierney PRECIADO Work Phone: [facility] 05-14-2024 14:29-0400 Diastolic blood pressure 64 mm[Hg] Tierney PRECIADO Work Phone: [facility] 05-14-2024 14:29-0400 Systolic blood pressure 110 mm[Hg] Tierney PRECIADO Work Phone: [facility] Healthcare Encounters Encounter Date Encounter Type Care Provider Facility Start: 07-02-2024 End: 07-02-2024 flow sheet Tierney PRECIADO Work Phone: [facility] Comment on above: Third trimester preg olivia; size inconsistent with dates Start: 07-02-2024 End: 07-02-2024 ambulatory TIERNEY WYNN Not Available Start: 07-02-2024 End: 07-02-2024 Bamboo flowsheet Tierney PRECIADO Work Phone: [facility] Start: 07-02-2024 End: 07-02-2024 Bamboo flowsheet Tierney PRECIADO Work Phone: [facility] Start: 06-16-2024 End: 06-16-2024 flow sheet Rod Thao DO Work Phone: [facility] Comment on above: Second trimester pre gnancy; 26 weeks gestation of Start: 06-16-2024 End: 06-16-2024 ambulatory ROD THAO Not Available Start: 06-16-2024 End: 06-16-2024 Bamboo flowsheet Rod Thao DO Work Phone: [facility] Start: 06-16-2024 End: 06-16-2024 Bamboo flowsheet Rod Thao DO Work Phone: [facility] Start: 06-11-2024 End: 06-11-2024 Clinisync Result Encounter Tierney PRECIADO Work Phone: [facility] External Department Unsolicited Start: 06-11-2024 End: 06-11-2024 Clinisync Result Encounter Tierney PRECIADO Work Phone: [facility] External Department Unsolicited Start: 06-04-2024 End: 06-04-2024 Clinisync Result Encounter Tierney PRECIADO Work Phone: [facility] External Department Unsolicited Start: 06-04-2024 End: 06-04-2024 Clinisync Result Encounter Tierney Captiva PA Work Phone: [facility] External Department Unsolicited Start: 05-14-2024 End: 05-14-2024 flow sheet Tierney PRECIADO Work Phone: [facility] Comment on above: Second trimester pre gnancy; 22 weeks gestation of ; Diabetes mellitus screening Start: 05-14-2024 End: 05-14-2024 ambulatory TIERNEY WYNN Not Available Start: 05-14-2024 End: 05-14-2024 Bamboo flowsheet Tierney PRECIADO Work Phone: [facility] Start: 05-14-2024 End: 05-14-2024 Bamboo flowsheet Tierney PRECIADO Work Phone: [facility] Start: 04-16-2024 End: 04-16-2024 ambulatory ROD THAO Not Available Start: 03-06-2024 End: 03[facility]06[facility] Start: 02-21-2024 End: 02-21-2024 ambulatory ROD THAO Not Available Start: 01-24-2024 End: 01-24-2024 ambulatory ROD R [facility] Start: 01-09-2024 End: 01-09-2024 ambulatory ROD THAO Not Available Start: 12-09-2023 End: 12-09-2023 ambulatory ROD OSUNA Not Available Start: 10-20-2022 End: 10-21-[address] ROD OSUNA . Facility: Start: 08-27-2022 End: 08-27-[address] ROD OSUNA . Facility: Start: 07-20-2022 End: 07-21-[address] ROD OSUNA . Facility:[facility] Start: 07-20-2022 End: 07-21-[address] ROD OSUNA . Facility: Procedures Date Procedure Procedure Detail Performing Clinician Start: 06-16-2024 Urnls dip stick/tabl et rgnt non-auto w/o micrscp Rod Osuna DO Work Phone: Start: 06-11-2024 GLUCOSE TOLERANCE 3 HOUR Tierney PRECIADO Work Phone: Start: 06-04-2024 ALL CBC WITH AUTO DIFF Tierney PRECIADO Work Phone: Start: 05-14-2024 Urnls dip stick/tabl et rgnt non-auto w/o micrscp Tierney PRECIADO Work Phone: Plan of Treatment Date Care Activity Detail Author Start: 10-05-2024 End: 10-05-2024 Patient encounter procedure 10/05/2024 1:10 PM EST Consult [facility] [address] [place] [address] Rod Osuna DO [address] [place], [place] [id number] [facility] Start: 07-22-2024 End: 07-22-2024 Patient encounter procedure 07/22/2024 1:30 PM EST Routine [facility] [address] [place] [address] Tierney Wynn PA [address] [facility] [address] [place], [place] [id number] [facility] Start: 07-02-2024 End: 07-02-2024 Patient encounter procedure 07/02/2024 3:40 PM EST Routine [facility] [address] [place] [id number] Tierney Wynn PA [address] [facility] [place] [address] [facility] Start: 07-02-2024 End: 07-02-2024 Patient encounter procedure 07/02/2024 2:20 PM EST Routine [facility] [address] [place] [phone] Tierney Wynn PA [address] [facility] [address] [place], [place] [id number] Arrived [facility] Comment on above: Arrived Start: 07-02-2024 End: 07-02-2025 US for US OB SCAN FOR GROWTH Imaging Routine size inconsistent with dates Expected: 07/02/2024 (Approximate), Expires: 07/02/2025 [facility] Work Phone: Comment on above: Expected: 07/02/2024 (Approximate), Expires: 07/02/2025 Start: 06-16-2024 End: 06-16-2024 Patient encounter procedure [facility] Comment on above: Arrived Start: 05-14-2024 End: 05-14-2024 Patient encounter procedure 05/14/2024 2:20 PM EDT Routine [facility] [address] [place] [phone] Tierney Wynn PA [address] [facility] [address] [place], [place] [id number] Arrived [facility] Comment on above: [...] mellitus screening Expected: 05/14/2024 (Approximate), Expires: 05/14/2025 [facility] Comment on above: Expected: 05/14/2024 (Approximate), Expires: 05/14/2025 Payers Date Payer Category Payer Private Health Insurance [id number] 2020 Medicaid [employer] [id number] 2020-Present [address]ly [address] [facility] [place] [address] [id number] 2020 Medicaid (Managed Care) [employer] [id number] 1994 Unknown [id number] 2.16.840.1.215130.3.579.2. 593 1994 Unknown [id number] 2.16.840.1.891077.3.579.2. 593 1994 Unknown [id number] 2.16.840.1.913912.3.579.2. 593 1994 Unknown [id number] 2.16.840.1.544507.3.579.2. 593 1994 Unknown [id number] 2.16.840.1.489277.3.579.2. 1286 1994 Unknown [id number] 2.16.840.1.710916.3.579.2. 1286 1994 Unknown [id number] 2.16.840.1.682302.3.579.2. 1259 1994 Unknown [id number] 2.16.840.1.064825.3.579.2. 1259 1994 Unknown [id number] 2.16.840.1.901995.3.579.2. 1259 1994 Unknown [id number] 2.16.840.1.491773.3.579.2. 1259 1994 Unknown [id number] 2.16.840.1.527913.3.579.2. 1259 1994 Unknown [id number] 2.16.840.1.859875.3.579.2. 1259 1994 Unknown [id number] 2.16.840.1.870897.3.579.2. 1259 1959 Self-pay [id number] 1959 Unknown [id number] 1959 Unknown [id number] Unknown [id number] 2.16.840.1.562935.3.579.2. 593 Social History Date Type Detail Facility Start: 01-19-2023 Tobacco smoking stat [facility] Never smoked tobacco [facility] Start: 01-19-2023 Tobacco use and exposure Smoke less tobacco non-user [facility] Start: 04-16-2024 End: 07-02-2024 Alcoholic beverage intake Lifetime non-drinker (finding) [facility] Start: 12-09-2023 History of Social function [facility] Start: 12-09-2023 Tobacco use panel [facility] Start: 12-26-2023 [facility] Start: 1995 Sex assigned at Not on file [facility] History of Present illness Narrative 07-02-2024 ILANA Rubio - 07/02/2024 2:20 PM EST Note Date & Type Note Facility 07-02-2024 History of Presen t illness Narrative Reason for Appointment: Patient ID: Lilo Kemp is a 29 y.o. female who presents for Routine Visit [...] reviewed. Vitals: Estimated body mass index is 29.69 kg/m as calculated from the following: Height as of 24: 5' 5 . Weight as of this encounter: 178 lb 6.4 oz. BP: 106/62 Patient's last menstrual period was 12/12/2023. ASSESSMENT & PLAN ICD-10-CM 1. Third trimester Z34.93 2. size inconsistent with dates O26.849 US OB SCAN FOR GROWTH Return OB: Patient presents today for a routine obstetrics appointment. Patient is currently 29w0d . Patient states she is doing well but has complaints of being tired due to current . Patient has verbalizes frequent movement. labor precautions was discussed/given and patient was instructed to perform kick counts three times a day. Orders Placed This Encounter Procedures US OB SCAN FOR GROWTH Follow Up: Patient is to return to office in 2 week for routine OB appointment. Documented by ILANA Rubio on behalf of: ILANA Rubio documented in this encounter [facility] History of Present illness Narrative 06-16-2024 Hui Davies, GLOBAL PRESIDENT - 06/16/2024 2:50 PM EST Note Date & Type Note Facility 06-16-2024 History of Presen t illness Narrative Reason for Appointment: Patient ID: Lilo Kemp is a 29 y.o. female who presents for Routine Visit [...] Exam Constitutional: Appearance: Normal appearance. She is well-developed. Cardiovascular: Rate and Rhythm: Normal rate and regular rhythm. Pulmonary: Effort: Pulmonary effort is normal. Breath sounds: Normal breath sounds. Abdominal: General: Bowel sounds are normal. There is no distension. Palpations: Abdomen is soft. Tenderness: There is no abdominal tenderness. There is no guarding or rebound. Musculoskeletal: General: No swelling. Normal range of motion. Right lower leg: No edema. Left lower leg: No edema. Neurological: Mental Status: She is alert and oriented to person, place, and time. Skin: General: Skin is warm and dry. Psychiatric: Mood and Affect: Mood normal. Behavior: Behavior normal. Vitals and nursing note reviewed. Exam conducted with a supervisor [employer] present. Vitals: Estimated body mass index is 28.96 kg/m as calculated from the following: Height as of 12/09/23: 5' 5 . Weight as of this encounter: 174 lb. BP: 114/62 Patient's last menstrual period was 12/12/2023. ASSESSMENT & PLAN ICD-10-CM 1. Second trimester Z34.92 POCT urinalysis dipstick manually resulted 2. 26 weeks gestation of Z3A.26 Return OB: Patient presents today for a routine obstetrics appointment. Patient is currently 26w5d . Patient states she is doing well but has complaints of being tired due to current . Patient has verbalizes frequent movement. labor precautions was discussed/given and patient was instructed to perform kick counts three times a day. Orders Placed This Encounter Procedures POCT urinalysis dipstick manually resulted Follow Up: Patient is to return to office in 2 week for routine OB appointment. Documented by Hui Davies LPN on behalf of: Rod Osuna DO documented in this encounter [facility] History of Present illness Narrative 05-14-2024 [...] calculated from the following: Height as of 12/08/24: 5' 5 . Weight as of this [...] mellitus documented in this encounter [facility] Evaluation note Note Date & Type Note Facility Evaluation note Diagnosis Second trimester state, incidental 26 weeks gestation of documented in this encounter [facility] Evaluation note Note Date & Type Note Facility Evaluation note Diagnosis Third trimester state, incidental size inconsistent with dates documented in this encounter [facility] Summary Purpose Family History No Family History Records FoundNo Family History Records FoundNo Family History Records Found Advance Directives No Advanced Directives Records FoundNo Advanced Directives Records FoundNo Advanced Directives Records Found Additional Source Comments INFORMATION SOURCE (unrecogn ized section and content) DATE CREATED AUTHOR 10/23/2022 [facility] DATE CREATED AUTHOR AUTHOR'S ORGANIZ ATION 03/07/2024 [facility] DATE CREATED AUTHOR AUTHOR'S ORGANIZ ATION 07/05/2024 [facility] EPIC Reason for Visit (unrecogniz ed [...] BE BASED ON THE PRIMARY CLINICAL RECORDS. [facility] [employer] [facility]. provides no warranty or guarantee of the accuracy or completeness of information in this document.
== END 2024-07-15 13:28 | disposition home or self-care (01) ==
LOC: US 13:27
PROVIDERS: Visit Provider Obstetrics & Gynecology
DX: O26.843 Uterine size-date discrepancy, third trimester (principal); Z3A.30 30 weeks gestation of pregnancy
CPT/HCPCS: 76816

== ENCOUNTER 2024-08-24 20:02 | Outpatient (REF) | payer OTHER, SELFPAY ==
--- OUTSIDE RECORDS SUMMARY | 2024-08-24 20:07 | XMS_ITS | CCD ---
Author Organization [facility] Providers Care Telegraph Operator Name Role Phone THAO ., DR VELASCO [...] DR NONE LISTED Primary Care Unavaila ble [place], DR DOROTHY Garcia Consulting Unavailable THAO ., [...] Consulting Unavailable KINGSLEY ., TIERNEY Consulting Unavailable THAOBELLAY R Referring Unavailable NO PCP, NO PCP Primary Care Unavailable THAOBELLAY R Referring Unavailable NO PCP, NO PCP Primary Care Unavailable Unavailable Primary Care Provider Unavailabl e BELLA OSUNAY Attending Unavailable ROD OSUNA Attending Unavailable ROD OSUNA Attending Unavailable KINGSLEY TIERNEY Attending Unavailable THAOBELLAY Attending Unavailable KINGSLEY TIERNEY Attending Unavailable KINGSLEY TIERNEY Attending Unavailable Problems Active Problems Problem Classification Problem Date Documented Da te Episodic/Chronic Menstrual disorders (6 sources) Irregular menstruation, unspecified; Translations: [IRREGULAR MENSTRUATION UNSPECIFIED] Onset: 07-20-2022 Chronic Other complications of (2 sources) size does not accord with dates; Translations: [Uterine size-date discrepancy, unspecified trimester] 07-02-2024 Episodic Other and delivery including normal (20 sources) Encounter for supervision of normal , unspecified, unspecified trimester; Translations: [Encounter for supervision of other normal , first trimester] Onset: 07-20-2022 Episodic Other screening for suspected conditions (not mental disorders or infectious disease) (12 sources) Encounter for screening for malignant neoplasm of cervix; Translations: [Patient encounter status] Onset: 08-27-2022 Episodic Residual codes; unclassified (2 sources) Gestation period, 22 weeks; Translations: [22 weeks gestation of ] 05-14-2024 Episodic Residual codes; unclassified (2 sources) Gestation period, 26 weeks; Translations: [26 weeks gestation of ] 06-16-2024 Episodic Residual codes; unclassified (4 sources) Gestation period, 31 weeks; Translations: [31 weeks gestation of ] Onset: 07-22-2024 07-22-2024 Episodic Past or Other Problems Problem Classification Problem Date Documented Date Episodic/Chronic Immunizations and screening for infectious disease (3 sources) Encounter for screening for human papillomavirus (HPV); Translations: [Exposure to sexually transmissible disorder] Onset: 09-01-2022 04-16-2024 Episodic Results Test Name Value Interpretation Reference Range Facility Urinalysis macro (dipstick) panel (U)on 07-22-2024 Bilirubin, UA Negative Negative - 4(70) +++ mg/dL [facility] Blood, UA Negative Negative - 50 Jl/mcL [facility] Clarity, UA Clear [facility] Color, UA Yellow [facility] Glucose, UA Negative Negative - 1999(110) ++++ mg/dL [facility] Interpretation and review of laboratory results Abnormal [facility] Ketones, UA Negative Negative - 160(16) ++++ mg/dL [facility] Leukocytes, UA Few Negative - 500+++ Juan/mcL [facility] Comment on above: small Nitrite, UA Negative Negative - Positive [facility] pH, UA 6.4 5 - 9 [facility] Protein, UA Negative Negative - 1999(20) ++++ mg/dL [facility] Spec Grav, UA 1.02 1 - 1.03 [facility] Urobilinogen, UA 0.2 0.2 - 12 mg/dL [facility] Urinalysis macro (dipstick) panel (U)on 06-16-2024 Bilirubin, UA Negative Negative - 4(70) +++ mg/dL [facility] Blood, UA Negative Negative - 50 Jl/mcL [facility] Clarity, UA Clear [facility] Color, UA Yellow [facility] Glucose, UA Negative Negative - 1999(110) ++++ mg/dL [facility] Interpretation and review of laboratory results Normal [facility] Ketones, UA Negative Negative - 160(16) ++++ mg/dL [facility] Leukocytes, UA Negative Negative - 500+++ Juan/mcL [facility] Nitrite, UA Negative Negative - Positive [facility] pH, UA 6 5 - 9 [facility] Protein, UA Negative Negative - 1999(20) ++++ mg/dL [facility] Spec Grav, UA 1.03 1 - 1.03 [facility] Urobilinogen, UA 0.2 0.2 - 12 mg/dL [facility] GLUCOSE TOLERANCE 3 HOURon 1 GLUCOSE TOLERANCE 3 HOUR mg/dL [facility] Comment on above: GLU FAST 81 (<95) Co l: 06/11/24 0820 GLU 1HR 122 (<180) Col: 06/11/24 0820 GLU 2HR 101 (<155) Col: 06/11/24 1021 GLU 3HR 74 (<140) Col: 06/11/24 1120 [facility] ALL CBC WITH AUTO DIFFon BASOPHILS ABSOLUTE AUTO 0.1 [facility] Basophils/100 WBC (Bld) 0.4 % 0.2 - 2.0 % [facility] Eosinophils/100 WBC (Bld) 1.2 % 0.9 - 7.0 % [facility] Erythrocyte distribution width (RBC) [Ratio] 12 % 11.0 - 15.0 % [facility] Hematocrit (Bld) [Volume fraction] 35.7 % Low 36.0 - 48.0 % [facility] Hemoglobin (Bld) [Mass/Vol] 12 g/dL 12.0 - 16.0 g/dL [facility] IMMATURE GRANULOCYTES ABS AUTO 0.09 High [facility] Immature granulocytes/100 WBC (Bld) 0.8 % High 0.0 - 0.5 % [facility] Interpretation and review of laboratory results Abnormal [facility] LYMPHOCYTES ABSOLUTE AUTO 2.2 [facility] Lymphocytes/100 WBC (Bld) 18.7 % Low 20.5 - 60.0 % [facility] MCH (RBC) [Entitic mass] 31.5 pg 26.7 - 34.0 pg [facility] MCHC (RBC) [Mass/Vol] 33.6 g/dL 29.9 - 35.2 g/dL [facility] MCV (RBC) [Entitic vol] 93.7 fL 81.0 - 99.0 fL [facility] MONOCYTES ABSOLUTE AUTO 0.4 [facility] Monocytes/100 WBC (Bld) 3.6 % 1.7 - 12.0 % [facility] NEUTROPHILS ABSOLUTE AUTO 8.9 High [facility] Neutrophils/100 WBC (Bld) 75.3 % High 43.0 - 75.0 % [facility] Platelet mean volume (Bld) [Entitic vol] 10 fL 9.5 - 13.5 fL [facility] TBH EO # 0.1 [facility] TBH PLT 213 [facility] TB RBC 3.81 Low [facility] TBH WBC 11.8 High [facility] Urinalysis macro (dipstick) panel (U)on 05-14-2024 Bilirubin, UA Negative Negative - 4(70) +++ mg/dL [facility] Blood, UA Negative Negative - 50 Jl/mcL [facility] Clarity, UA Clear [facility] Color, UA Yellow [facility] Glucose, UA Negative Negative - 1999(110) ++++ mg/dL [facility] Interpretation and review of laboratory results Normal [facility] Ketones, UA Negative Negative - 160(16) ++++ mg/dL [facility] Leukocytes, UA Negative Negative - 500+++ Juan/mcL [facility] Nitrite, UA Negative Negative - Positive [facility] pH, UA 6.5 5 - 9 [facility] Protein, UA Negative Negative - 1999(20) ++++ mg/dL [facility] Spec Grav, UA 1.025 1 - 1.03 [facility] Urobilinogen, UA 0.2 0.2 - 12 mg/dL [facility] IGP,APTIMA HPV,AGE GDLNon AGE GDLN ACOG TESTING Note . [facility] Comment on above: TESTS RESULT FLAG UN ITS REF RANGE LAB Clinician Provided Cytology Information Source.............Cervix No. of containers..01 ThinPrep Vial Age Kristyn REARDON Ira... FLAG LEGEND: L-Low Normal,H-High Normal,LL-Alert Low,HH-Alert High <-Panic Low,>-Panic High,A-Abnormal,AA-Critical Abnormal Performed at: 01 =[facility] [address] [place] [address] Chiquita Camacho MD, IGP, RFX APTIMA HPV ASCU Note . [facility] Comment on above: TESTS RESULT FLAG UN ITS REF RANGE LAB DIAGNOSIS: 02 NEGATIVE FOR INTRAEPITHELIAL LESION OR MALIGNANCY. Specimen adequacy: 02 Satisfactory for evaluation. No endocervical component is identified. Performed by: 02 Judy Brush Head Of Sales Promotion . 02 Note: Note 02 The Pap smear is a screening test designed to aid in the detection of premalignant and malignant conditions of the uterine cervix. It is not a diagnostic procedure and should not be used as the sole means of detecting cervical cancer. Both false-positive and false-negative reports do occur. Test Methodology: Note 02 This liquid based ThinPrep(R) pap test was screened with the use of an image guided system. . 02 The HPV DNA reflex criteria were not met with this specimen result therefore, no HPV testing was performed. FLAG LEGEND: L-Low Normal,H-High Normal,LL-Alert Low,HH-Alert High <-Panic Low,>-Panic High,A-Abnormal,AA-Critical Abnormal Performed at: [address] [address] Chiquita Camacho MD, Performed at: = - [facility] [id number] Director Of Career Services: Chiquita Camacho MD, Phone: [phone] Performed at: [facility] [id number] Director Of Career Services: Chiquita Camacho MD, Phone: [phone] SPATULA-ALONE CERVIX [facility] Urinalysis macro (dipstick) panel (U)on 04-16-2024 Bilirubin, UA Negative Negative - 4(70) +++ mg/dL [facility] Blood, UA Negative Negative - 50 Jl/mcL [facility] Clarity, UA Clear [facility] Color, UA Yellow [facility] Glucose, UA Negative Negative - 1999(110) ++++ mg/dL [facility] Interpretation and review of laboratory results Normal [facility] Ketones, UA Negative Negative - 160(16) ++++ mg/dL [facility] Leukocytes, UA Negative Negative - 500+++ Juan/mcL [facility] Nitrite, UA Negative Negative - Positive [facility] pH, UA 6.0 5 - 9 [facility] Protein, UA Negative Negative - 1999(20) ++++ mg/dL [facility] Spec Grav, UA 1.025 1 - 1.03 [facility] Urobilinogen, UA 0.2 0.2 - 12 mg/dL [facility] HCG.beta subunit IA 3rd IS Q non 01-24-2024 HCG.beta subunit Qn 7740 m[IU]/mL Normal [facility] Comment on above: Result Comment: NEW [...] neoplasms. Performed By: #### 2 0415-6 #### [facility] ([id number]) [address], [address] [place] [address] US PREG ANATOMY SINGLEon US PREG ANATOMY [...] MARGAUX SANDERS Date: 2022-10-22 21:32 Normal [facility] CBC AUTO DIFFon 10-20-2022 BASO # 0.1 103/ul Normal 0.0-0.1 [facility] Comment on above: Performed By: #### C BC #### [facility] [address] [place] [address] Dr. Luis Edwards Basophils/100 WBC (Bld) 0.4 % Normal 0.2-2.0 [facility] Comment on above: Performed By: #### C BC #### [facility] [address] [place] [address] Dr. Luis Edwards EO # 0.3 103/ul Normal 0.0-0.7 [facility] Comment on above: Performed By: #### C BC #### [facility] [address] [place] [address] Dr. Luis Edwards Eosinophils/100 WBC (Bld) 1.7 % Normal 0.9-7.0 [facility] Comment on above: Performed By: #### C BC #### [facility] [address] [place] [address] Dr. Luis Edwards Erythrocyte distribution width (RBC) [Ratio] 13.1 % Normal 11.0-15.0 [facility] Comment on above: Performed By: #### C BC #### [facility] [address] [place] [address] Dr. Luis Edwards Hematocrit (Bld) [Volume fraction] 35.1 % Critically low 36.0-48.0 [facility] Comment on above: Performed By: #### C BC #### [facility] [address] [place] [address] Dr. Luis Edwards Hemoglobin (Bld) [Mass/Vol] 11.9 g/dL Critically low 12.0-16.0 [facility] Comment on above: Performed By: #### C BC #### [facility] [address] [place] [address] Dr. Luis Edwards IG # 0.17 10e3/ul Critically high 0.00-0.03 [facility] Comment on above: Performed By: #### C BC #### [facility] [address] [place] [address] Dr. Luis Edwards IG % 1.2 % Critically high 0.0-0.5 [facility] Comment on above: Performed By: #### C BC #### [facility] [address] [place] [address] Dr. Luis Edwards LYMPH # 2.3 103/ul Normal 1.2-3.8 [facility] Comment on above: Performed By: #### C BC #### [facility] [address] [place] [address] Dr. Luis Edwards Lymphocytes/100 WBC (Bld) 16.0 % Critically low 20.5-60.0 [facility] Comment on above: Performed By: #### C BC #### [facility] [address] [place] [address] Dr. Luis Edwards MANUAL DIFF REQ NO Normal [facility] Comment on above: Performed By: #### C BC #### [facility] [address] [place] [address] Dr. Luis Edwards MCH (RBC) [Entitic mass] 30.5 pg Normal 26.7-34.0 [facility] Comment on above: Performed By: #### C BC #### [facility] [address] [place] [address] Dr. Luis Edwards MCHC (RBC) [Mass/Vol] 33.9 g/dL Normal 29.9-35.2 [facility] Comment on above: Performed By: #### C BC #### [facility] [address] [address] [address] Luis Edwards MCV (RBC) [Entitic vol] 90.0 fL Normal 81.0-99.0 [facility] Comment on above: Performed By: #### C BC #### [facility] [address] [address] [address] Luis Edwards MONO # 0.6 103/ul Normal 0.3-0.8 [facility] Comment on above: Performed By: #### C BC #### [facility] [address] [place] [address] Dr. Luis Edwards Monocytes/100 WBC (Bld) 4.2 % Normal 1.7-12.0 [facility] Comment on above: Performed By: #### C BC #### [facility] [address] [place] [address] Dr. Luis Edwards NEUT # 11.2 103/ul Critically high 1.4-6.5 [facility] Comment on above: Performed By: #### C BC #### [facility] [address] [place] [address] Dr. Luis Edwards Neutrophils/100 WBC (Bld) 76.5 % Critically high 43.0-75.0 [facility] Comment on above: Performed By: #### C BC #### [facility] [address] [address] [address] Luis Edwards Platelet mean volume (Bld) [Entitic vol] 9.2 fL Critically low 9.5-13.5 [facility] Comment on above: Performed By: #### C BC #### [facility] [address] [place] [address] Dr. Luis Edwards PLT 247 103/ul Normal 150-450 [facility] Comment on above: Performed By: #### C BC #### [facility] [address] [place] [address] Dr. Luis Edwards RBC 3.90 106/ul Critically low 4.20-5.40 [facility] Comment on above: Performed By: #### C BC #### [facility] [address] [address] [address] Luis Edwards WBC 14.6 103/ul Critically high 4.0-11.0 [facility] Comment on above: Performed By: #### C BC #### [facility] [address] [address] [address] Luis Edwards GLUCOSE - 1HRon 10-20-2022 Glucose [Mass/Vol] 133 mg/dL Critically high 74-106 [facility] Comment on above: Performed By: #### C BC #### [facility] [address] [address] [address] Luis Edwards PAP ACOG PANEL 2: 21 to 29on 08-31-2022 . . Normal [facility] Comment on above: Performed By: #### 4 [id number] #### [facility] [address] [place] [address] Dr. Luis Edwards Age Gdln ACOG Testing - [facility] Comment on above: Performed By: #### 4 [id number] #### [facility] [address] [address] [address] Luis Edwards DIAGNOSIS: Comment [facility] Comment on above: Result Comment: NEGA TIVE FOR INTRAEPITHELIAL LESION OR MALIGNANCY. PREDOMINANCE OF COCCOBACILLI CONSISTENT WITH SHIFT IN VAGINAL LUCRECIA IS PRESENT. Performed By: #### 4 [id number] #### [facility] [address] [place] [address] Dr. Luis Edwards Methodology: Comment Normal [facility] Comment on above: Result Comment: This liquid based ThinPrep(R) pap test was screened with the use of an image guided system. Performed By: #### 4 [id number] #### [facility] [address] [place] [address] Dr. Luis Edwards Note: Comment [facility] Comment on above: Result Comment: The Pap smear is a screening test designed to aid in the detection of premalignant and malignant conditions of the uterine cervix. It is not a diagnostic procedure and should not be used as the sole means of detecting cervical cancer. Both false-positive and false-negative reports do occur. . Performed By: #### 4 [id number] #### [facility] [address] [place] [address] Dr. Luis Edwards Performed by: Comment Normal [facility] Comment on above: Result Comment: Braydon Munoz, Head Of Sales Promotion Performed By: #### 4 [id number] #### [facility] [address] [place] [address] Dr. Luis Edwards Reflex Criteria: Comment Normal [facility] Comment on above: Result Comment: The HPV DNA reflex criteria were not met with this specimen result therefore, no HPV testing was performed. . Performed By: #### 4 [id number] #### [facility] [address] [place] [address] Dr. Luis Edwards Specimen adequacy: Comment Normal [facility] Comment on above: Result Comment: Sati sfactory for evaluation. No endocervical component is identified. Performed By: #### 4 [id number] #### [facility] [address] [place] [address] Dr. Luis Edwards CHLAMYDIA/GONOCOCCUS TIANNA (SW AB/URINE/PAPon 08-30-2022 Chlamydia trachomatis, TIANNA Negative Normal Negative [facility] Comment on above: Performed By: #### C T/NGNA #### [facility] [address] [place] [address] Dr. Luis Edwards Neisseria gonorrhoeae, TIANNA Negative Normal Negative [facility] Comment on above: Performed By: #### C T/NGNA #### [facility] [address] [place] [address] Dr. Luis Edwards VAGINITIS/VAGINOSIS DNA PROB Benjamin 08-29-2022 Viktoria species Negative Normal Negative [facility] Comment on above: Performed By: #### C BC #### [facility] [address] [place] [address] Dr. Luis Edwards Gardnerella vaginalis Positive Abnormal Negative [facility] Comment on above: Performed By: #### C BC #### [facility] [address] [place] [address] Dr. Luis Edwards Trichomonas vaginalis Negative Normal Negative [facility] Comment on above: Performed By: #### C BC #### [facility] [address] [place] [address] Dr. Luis Edwards HEPATITIS C VIRUS AB W/ REFL EX QUANTon 07-22-2022 HCV AB <0.1 Normal 0.0-0.9 [facility] Comment on above: Performed By: #### H CVPCRR #### [facility] [address] [address] [address] Luis Edwards Interpretation: Comment Normal [facility] Comment on above: Result Comment: Nega tive Not infected with HCV, unless recent infection is suspected or other evidence exists to indicate HCV infection. Performed By: #### H CVPCRR #### [facility] [address] [place] [address] Dr. Luis Edwards HEP B SURFACE ANTIGEN SCREEN on 07-21-2022 HBsAg Screen Negative Normal Negative [facility] Comment on above: Performed By: #### H BSANS #### [facility] [address] [place] [address] Dr. Luis Edwards HIV 1 AND 2 WITH REFLEXon HIV Screen 4th Generation wRfx Non-Reactive Normal Non Reactive [facility] Comment on above: Result Comment: HIV Negative HIV-1/HIV-2 antibodies and HIV-1 p24 antigen were NOT detected. There is no laboratory evidence of HIV infection. Performed By: #### C BC #### [facility] [address] [place] [address] Dr. Luis Edwards RPR QUANTon 07-21-2022 Rapid Plasma Reagin, Quant Non-Reactive Normal NonRea<1:1 [facility] Comment on above: Result Comment: Plea se Note: This test does not meet current guidelines for screening and diagnosis of syphilis. This test is intended for following treatment response in patients being treated for syphilis infection. To screen for syphilis infection, a reflex cascade that includes both RPR and a treponema-specific assay should be utilized, such as Treponema pallidum (Syphilis) Screening [place] (723435) or Rapid Plasma Reagin (RPR) Test With Reflex to Quantitative RPR and Confirmatory Treponema pallidum Antibodies ([id number]). Performed By: #### R PRQ #### [facility] [address] [place] [address] Dr. Luis Edwards RUBELLA AB IGGon 07-21-2022 Rubella Antibodies, IgG 1.57 index Normal Immune >0.99 [facility] Comment on above: Result Comment: Non- immune <0.90 Equivocal 0.90 - 0.99 Immune >0.99 Performed By: #### R UBIGG #### [facility] [address] [place] [address] Dr. Luis Edwards CBC AUTO DIFFon 07-20-2022 BASO # 0.1 103/ul Normal 0.0-0.1 [facility] Comment on above: Performed By: #### C BC #### [facility] [address] [place] [address] Dr. Luis Edwards Basophils/100 WBC (Bld) 0.6 % Normal 0.2-2.0 [facility] Comment on above: Performed By: #### C BC #### [facility] [address] [place] [address] Dr. Luis Edwards EO # 0.2 103/ul Normal 0.0-0.7 [facility] Comment on above: Performed By: #### C BC #### [facility] [address] [place] [address] Dr. Luis Edwards Eosinophils/100 WBC (Bld) 2.0 % Normal 0.9-7.0 [facility] Comment on above: Performed By: #### C BC #### [facility] [address] [place] [address] Dr. Luis Edwards Erythrocyte distribution width (RBC) [Ratio] 13.6 % Normal 11.0-15.0 [facility] Comment on above: Performed By: #### C BC #### [facility] [address] [place] [address] Dr. Luis Edwards Hematocrit (Bld) [Volume fraction] 35.6 % Critically low 36.0-48.0 [facility] Comment on above: Performed By: #### C BC #### [facility] [address] [place] [address] Dr. Luis Edwards Hemoglobin (Bld) [Mass/Vol] 11.8 g/dL Critically low 12.0-16.0 [facility] Comment on above: Performed By: #### C BC #### [facility] [address] [place] [address] Dr. Luis Edwards IG # 0.03 10e3/ul Normal 0.00-0.03 [facility] Comment on above: Performed By: #### C BC #### [facility] [address] [place] [address] Dr. Luis Edwards IG % 0.3 % Normal 0.0-0.5 [facility] Comment on above: Performed By: #### C BC #### [facility] [address] [place] [address] Dr. Luis Edwards LYMPH # 1.9 103/ul Normal 1.2-3.8 [facility] Comment on above: Performed By: #### C BC #### [facility] [address] [place] [address] Dr. Luis Edwards Lymphocytes/100 WBC (Bld) 21.0 % Normal 20.5-60.0 [facility] Comment on above: Performed By: #### C BC #### [facility] [address] [place] [address] Dr. Luis Edwards MANUAL DIFF REQ NO Normal [facility] Comment on above: Performed By: #### C BC #### [facility] [address] [place] [address] Dr. Luis Edwards MCH (RBC) [Entitic mass] 28.7 pg Normal 26.7-34.0 [facility] Comment on above: Performed By: #### C BC #### [facility] [address] [place] [address] Dr. Luis Edwards MCHC (RBC) [Mass/Vol] 33.1 g/dL Normal 29.9-35.2 [facility] Comment on above: Performed By: #### C BC #### [facility] [address] [place] [address] Dr. Luis Edwards MCV (RBC) [Entitic vol] 86.6 fL Normal 81.0-99.0 [facility] Comment on above: Performed By: #### C BC #### [facility] [address] [place] [address] Dr. Luis Edwards MONO # 0.4 103/ul Normal 0.3-0.8 [facility] Comment on above: Performed By: #### C BC #### [facility] [address] [place] [address] Dr. Luis Edwards Monocytes/100 WBC (Bld) 4.9 % Normal 1.7-12.0 [facility] Comment on above: Performed By: #### C BC #### [facility] [address] [place] [address] Dr. Luis Edwards NEUT # 6.3 103/ul Normal 1.4-6.5 [facility] Comment on above: Performed By: #### C BC #### [facility] [address] [place] [address] Dr. Luis Edwards Neutrophils/100 WBC (Bld) 71.2 % Normal 43.0-75.0 [facility] Comment on above: Performed By: #### C BC #### [facility] [address] [place] [address] Dr. Luis Edwards Platelet mean volume (Bld) [Entitic vol] 10.1 fL Normal 9.5-13.5 [facility] Comment on above: Performed By: #### C BC #### [facility] [address] [place] [address] Dr. Luis Edwards PLT 262 103/ul Normal 150-450 [facility] Comment on above: Performed By: #### C BC #### [facility] [address] [place], [place] [id number] Dr. Luis Edwards RBC 4.11 106/ul Critically low 4.20-5.40 [facility] Comment on above: Performed By: #### C BC #### [facility] [address] [place] [address] Dr. Luis Edwards WBC 8.8 103/ul Normal 4.0-11.0 [facility] Comment on above: Performed By: #### C BC #### [facility] [address] [address] [address] Luis Edwards CULTURE URINEon 07-20-2022 CULTURE URINE Culture Observations : NO GROWTH. Normal [facility] Comment on above: Performed By: #### C BC #### [facility] [address] [address] [address] Luis Edwards GLYCOHEMOGLOBIN A1Con 2021 ADA RECOMMENDATION SEE BELOW Normal [facility] Comment on above: Result Comment: ADA RECOMMENDED LIMIT 4.0 - 6.0 ADA THERAPEUTIC TARGET < 7.0 ACTION SUGGESTED > 7.0 Performed By: #### A 1C #### [facility] [address] [place] [address] Dr. Luis Edwards Glucose [Mass/Vol] 103 mg/dL Normal [facility] Comment on above: Performed By: #### A 1C #### [facility] [address] [place] [address] Dr. Luis Edwards HbA1c (Bld) [Mass fraction] 5.2 % Normal 4.5-6.2 [facility] Comment on above: Performed By: #### A 1C #### [facility] [address] [place] [address] Dr. Luis Edwards ZAKI BOX TEST PT SEND OUTo n 07-20-2022 SENT TO REF LAB 07/20/2022 Normal [facility] Comment on above: Performed By: #### N BOX #### [facility] [address] [place] [address] Dr. Luis Edwards TYPE AND SCREENon 07-20-2022 TYPE AND SCREEN Negative Normal [facility] Comment on above: Performed By: #### C BC #### [facility] [address] [place] [address] Dr. Luis Edwards US PREG <14 WKSon [...] by: DOROTHY MCCULLOUGH Date: 2022-07-20 16:09 Normal [facility] Vital Signs Date Time Vital Sign Value Performing Clinician Ryan clemetne 07-22-2024 14:20-0500 Body mass index (BMI) [Ratio] 29.79 kg/m2 Tierney Kinder PA Work Phone: [facility] 07-22-2024 14:20-0500 Body weight 81.19 kg Tierney Kingsley PA Work Phone: [facility] 07-22-2024 14:20-0500 Diastolic blood pressure 68 mm[Hg] Tierney Kinder PA Work Phone: [facility] 07-22-2024 14:20-0500 Systolic blood pressure 122 mm[Hg] Tierney Kinder PA Work Phone: [facility] 07-02-2024 14:55-0500 Body mass index (BMI) [Ratio] 29.69 kg/m2 Tierney Kinder PA Work Phone: [facility] 07-02-2024 14:55-0500 Body weight 80.92 kg Tierney Kinder PA Work Phone: [facility] 07-02-2024 14:55-0500 Diastolic blood pressure 62 mm[Hg] Tierney Kinder PA Work Phone: [facility] 07-02-2024 14:55-0500 Systolic blood pressure 106 mm[Hg] Tierney Kingsley PA Work Phone: [facility] 06-16-2024 14:58-0500 Body mass index (BMI) [Ratio] 28.96 kg/m2 Rod Thao DO Work Phone: [facility] 06-16-2024 14:58-0500 Body weight 78.93 kg Rod Thao DO Work Phone: [facility] 06-16-2024 14:58-0500 Diastolic blood pressure 62 mm[Hg] Rod Thao DO Work Phone: [facility] 06-16-2024 14:58-0500 Systolic blood pressure 114 mm[Hg] Rod Thao DO Work Phone: [facility] 05-14-2024 14:29-0400 Body mass index (BMI) [Ratio] 27.29 kg/m2 Tierney PRECIADO Work Phone: [facility] 05-14-2024 14:29-0400 Body weight 74.39 kg Tierney PRECIADO Work Phone: [facility] 05-14-2024 14:29-0400 Diastolic blood pressure 64 mm[Hg] Tierney PRECIADO Work Phone: [facility] 05-14-2024 14:29-0400 Systolic blood pressure 110 mm[Hg] Tierney PRECIADO Work Phone: [facility] 04-16-2024 12:25-0400 Body mass index (BMI) [Ratio] 27.29 kg/m2 Rod Thao DO Work Phone: [facility] 04-16-2024 12:25-0400 Body weight 74.39 kg Rod Thao DO Work Phone: [facility] 04-16-2024 12:25-0400 Diastolic blood pressure 68 mm[Hg] Rod Thao DO Work Phone: [facility] 04-16-2024 12:25-0400 Systolic blood pressure 104 mm[Hg] Rod Thao DO Work Phone: [facility] Healthcare Encounters Encounter Date Encounter Type Care Provider Facility Start: 07-22-2024 End: 07-22-2024 Bamboo flowsheet Tierney PRECIADO Work Phone: [facility] Start: 07-22-2024 End: 07-22-2024 Bamboo flowsheet Tierney PRECIADO Work Phone: [facility] Start: 07-22-2024 End: 07-22-2024 flow sheet Tierney PRECIADO Work Phone: [facility] Comment on above: 31 weeks gestation o f ; Third trimester Start: 07-22-2024 End: 07-22-2024 ambulatory TIERNEY WYNN Not Available Start: 07-02-2024 End: 07-02-2024 flow sheet Tierney PRECIADO Work Phone: [facility] Comment on above: Third trimester preg olivia; size inconsistent with dates Start: 07-02-2024 End: 07-02-2024 ambulatory TIERNEY WYNN Not Available Start: 07-02-2024 End: 07-02-2024 Bamboo flowsheet Tierney PRECIADO Work Phone: [facility] Start: 07-02-2024 End: 07-02-2024 Bamboo flowsheet Tierney PRECIADO Work Phone: [facility] Start: 06-16-2024 End: 06-16-2024 flow sheet Rod Thao DO Work Phone: [facility] Comment on above: Second trimester pre gnancy; 26 weeks gestation of Start: 06-16-2024 End: 06-16-2024 ambulatory ROD THAO Not Available Start: 06-16-2024 End: 06-16-2024 Bamboo flowsheet Rod Thao DO Work Phone: [facility] Start: 06-16-2024 End: 06-16-2024 Bamboo flowsheet Rod Thao DO Work Phone: [facility] Start: 06-11-2024 End: 06-11-2024 Clinisync Result Encounter Tierney PRECIADO Work Phone: [facility] Unsolicited Start: 06-11-2024 End: 06-11-2024 Clinisync Result Encounter Tierney PRECIADO Work Phone: [facility] Unsolicited Start: 06-04-2024 End: 06-04-2024 Clinisync Result Encounter Tierney PRECIADO Work Phone: [facility] External Department Unsolicited Start: 06-04-2024 End: 06-04-2024 Clinisync Result Encounter Tierney PRECIADO Work Phone: [facility] External Department Unsolicited Start: 05-14-2024 End: 05-14-2024 flow sheet Tierney PRECIADO Work Phone: [facility] Comment on above: Second trimester pre gnancy; 22 weeks gestation of ; Diabetes mellitus screening Start: 05-14-2024 End: 05-14-2024 ambulatory TIERNEY WYNN Not Available Start: 05-14-2024 End: 05-14-2024 Bamboo flowsheet Tierney PRECIADO Work Phone: [facility] Start: 05-14-2024 End: 05-14-2024 Bamboo flowsheet Tierney PRECIADO Work Phone: [facility] Start: 04-16-2024 End: 04-16-2024 Bamboo flowsheet Rod Thao DO Work Phone: [facility] Start: 04-16-2024 End: 04-21-2024 Bamboo flowsheet Rod Thao DO Work Phone: [facility] Start: 04-16-2024 End: 04-21-2024 Clinisync Result Encounter Rod Thao DO Work Phone: [facility] External Department Unsolicited Start: 04-16-2024 End: 04-16-2024 Patient encounter procedure Rod Thao DO Work Phone: [facility] Healthcare Start: 04-16-2024 End: 04-16-2024 flow sheet Rod Thao DO Work Phone: [facility] Comment on above: Well woman exam with routine gynecological exam; Second trimester ; Encounter for anatomic survey; Exposure to STD; Need for maternal serum alpha-protein (MSAFP) screening; Screening, , for anatomic survey Start: 04-16-2024 End: 04-16-2024 ambulatory ROD THAO Not Available Start: 03-06-2024 End: 03-06-2024 ambulatory ROD R THAO [facility] Start: 02-21-2024 End: 02-21-2024 ambulatory ROD THAO Not Available Start: 01-24-2024 End: 01-24-2024 ambulatory ROD R THAO [facility] Start: 01-09-2024 End: 01-09-2024 ambulatory ROD THAO Not Available Start: 12-09-2023 End: 12-09-2023 ambulatory ROD THAO Not Available Start: 10-20-2022 End: 10-21-[address] ROD OSUNA . Facility: Start: 08-27-2022 End: 08-27-[address] ROD OSUNA . Facility: Start: 07-20-2022 End: 07-21-[address] ROD OSUNA . Facility: Start: 07-20-2022 End: 07-21-[address] ROD OSUNA . Facility: Procedures Date Procedure Procedure Detail Performing Clinician Start: 07-22-2024 Urnls dip stick/tabl et rgnt non-auto w/o micrscp Tierney PRECIADO Work Phone: Start: 06-16-2024 Urnls dip stick/tabl et rgnt non-auto w/o micrscp Rod Thao DO Work Phone: Start: 06-11-2024 GLUCOSE TOLERANCE 3 HOUR Tierney PRECIADO Work Phone: Start: 06-04-2024 ALL CBC WITH AUTO DIFF Tierney PRECIADO Work Phone: Start: 05-14-2024 Urnls dip stick/tabl et rgnt non-auto w/o micrscp Tierney PREICADO Work Phone: Start: 04-16-2024 Urnls dip stick/tabl et rgnt non-auto w/o micrscp Rod Thao DO Work Phone: Start: 04-16-2024 IGP,APTIMA HPV,AGE GDLN Rod Thao DO Work Phone: Plan of Treatment Date Care Activity Detail Author Start: 10-05-2024 End: 10-05-2024 Patient encounter procedure 10/05/2024 1:10 PM EST Consult [facility] [address] [facility] [place] [phone] Rod Osuna, DO [address] [place] [address] [facility] Start: 08-06-2024 End: 08-06-2024 Patient encounter procedure 08/06/2024 9:50 AM EST Routine [facility] [address] [place] [phone] Rod Osuna, DO [address] [place] [address] [facility] Start: 07-22-2024 End: 07-22-2024 Patient encounter procedure [facility] Comment on above: Arrived Start: 07-02-2024 End: 07-02-2024 Patient encounter procedure 07/02/2024 3:40 PM EST Routine [facility] [address] [place] [phone] Tierney Wynn PA [address] [place] [address] [facility] Start: 07-02-2024 End: 07-02-2024 Patient encounter procedure 07/02/2024 2:20 PM EST Routine [facility] [address] [place] [phone] Tierney Wynn PA [address] [place] [address] Arrived [facility] Comment on above: Arrived Start: 07-02-2024 End: 07-02-2025 US for US OB SCAN FOR GROWTH Imaging Routine size inconsistent with dates Expected: 07/02/2024 (Approximate), Expires: 07/02/2025 [facility] Healthcare Work Phone: Comment on above: Expected: 07/02/2024 (Approximate), Expires: 07/02/2025 Start: 06-16-2024 End: 06-16-2024 Patient encounter procedure [facility] Comment on above: Arrived Start: 05-14-2024 End: 05-14-2024 Patient encounter procedure [facility] Comment on above: Arrived Start: 05-14-2024 End: 05-14-2025 CBC panel - Blood by Automated count CBC Lab Routine Diabetes mellitus screening Expected: 05/14/2024 (Approximate), Expires: 05/14/2025 [facility] Healthcare Work Phone: Comment on above: Expected: 05/14/2024 (Approximate), Expires: 05/14/2025 Start: 05-14-2024 End: 05-14-2025 Measurement of glucose 1 hour after glucose challenge for glucose tolerance test Glucose tolerance, 1 hour Lab Routine Diabetes mellitus screening Expected: 05/14/2024 (Approximate), Expires: 05/14/2025 [facility] Comment on above: Expected: 05/14/2024 (Approximate), Expires: 05/14/2025 Start: 04-16-2024 End: 05-16-2024 Alpha fetoprotein, maternal Alpha fetoprotein, maternal Lab Routine Need for maternal serum alpha-protein (MSAFP) screening Expected: 04/16/2024 (Approximate), Expires: 05/16/2024 [facility] Comment on above: Expected: 04/16/2024 (Approximate), Expires: 05/16/2024 Start: 04-16-2024 End: 04-16-2025 US for US OB ANATOMY SINGLE W US OB CERVICAL LENGTH Imaging Routine Screening, , for anatomic survey Expected: 04/16/2024 (Approximate), Expires: 04/16/2025 [facility] Comment on above: Expected: 04/16/2024 (Approximate), Expires: 04/16/2025 Start: 04-16-2024 End: 04-16-2024 Patient encounter procedure 04/16/2024 11:30 AM EDT Routine [facility] [address] [phone] Rod Osuna DO [address] [facility] [place] [address] Arrived [facility] Comment on above: Arrived CHLAMYDIA TRACHOMATI S (GENITO/STI) CHLAMYDIA TRACHOMATIS (GENITO/STI) Lab Routine Exposure to STD Ordered: 04/16/2024 [facility] Comment on above: Ordered: 04/16/2024 Cytology Cervical or vaginal smear or scraping study Pap Smear Pathology and Cytology Routine Well woman exam with routine gynecological exam Ordered: 04/16/2024 [facility] Comment on above: Ordered: 04/16/2024 Neisseria gonorrhoea e DNA [Presence] in Unspecified specimen by TIANNA with probe detection Neisseria gonorrhea DNA probe, direct Lab Routine Exposure to STD Ordered: 04/16/2024 [facility] Healthcare Comment on above: Ordered: 04/16/2024 SURESWAB(R) ADVANCED VAGINITIS PLUS, TMA SURESWAB(R) ADVANCED VAGINITIS PLUS, TMA Pathology and Cytology Routine Exposure to STD Ordered: 04/16/2024 [facility] Healthcare Work Phone: Comment on above: Ordered: 04/16/2024 Payers Date Payer Category Payer Private Health Insurance [id number] 2020 Medicaid [facility] MEDICAID [facility] MEDICAID [id number] 2020-Present [address] [place] [address] [id number] 2020 Medicaid (Managed Care) [facility] MEDICAID [id number] 1994 Unknown [id number] [id number]. 593 1994 Unknown [id number] 2.16.840.1.743018.3.579.2. 593 1994 Unknown [id number] 2.16.840.1.729017.3.579.2. 593 1994 Unknown [id number] 2.16.840.1.632323.3.579.2. 593 1994 Unknown [id number] 2.16.840.1.502200.3.579.2. 1286 1994 Unknown [id number] 2.16.840.1.438076.3.579.2. 1286 1994 Unknown [id number] 2.16.840.1.768561.3.579.2. 1259 1994 Unknown [id number] 2.16.840.1.842437.3.579.2. 1259 1994 Unknown [id number] 2.16.840.1.874764.3.579.2. 1259 1994 Unknown [id number] 2.16.840.1.584086.3.579.2. 1259 1994 Unknown [id number] 2.16.840.1.715099.3.579.2. 1259 1994 Unknown [id number] 2.16.840.1.577129.3.579.2. 1259 1994 Unknown [id number] 2.16.840.1.219102.3.579.2. 1259 1994 Unknown [id number] 2.16.840.1.959983.3.579.2. 1259 1959 Self-pay [id number] 1959 Unknown [id number] 1959 Unknown [id number] Unknown [id number] 2.16.840.1.415471.3.579.2. 593 Social History Date Type Detail Facility Start: 01-19-[address] [facility] Never smoked tobacco [facility] Start: 01-19-2023 Tobacco use and exposure Smoke less tobacco non-user [facility] Start: 02-21-2024 End: 04-16-2024 Alcoholic beverage intake Lifetime non-drinker (finding) [facility] Start: 02-28-2023 End: 12-09-2023 [facility] of [facility] Start: 02-28-2023 End: 12-09-2023 Tobacco use panel [facility] Start: 12-26-2023 [facility] Start: 1995 Sex assigned at Not on file [facility] History of Present illness Narrative 07-22-2024 ILANA Rubio - 07/22/2024 1:30 PM EST Note Date & Type Note Facility 07-22-2024 History of Presen t illness Narrative Reason for Appointment: Patient ID: Lilo Kemp is a 29 y.o. female who presents for No chief complaint on file. Patient presents today for Return OB appointment. MEDICATIONS No current outpatient medications ALLERGIES No Known Allergies PROBLEMS Active Ambulatory Problems Diagnosis Date Noted 31 weeks gestation of 07/22/2024 Third trimester 07/22/2024 Resolved Ambulatory Problems Diagnosis Date Noted No [...] reviewed. Vitals: Estimated body mass index is 29.79 kg/m as calculated from the following: Height as of 12/09/23: 5' 5 . Weight as of this encounter: 179 lb. BP: 122/68 Patient's last menstrual period was 12/12/2023. ASSESSMENT & PLAN ICD-10-CM 1. 31 weeks gestation of Z3A.31 POCT urinalysis dipstick manually resulted 2. Third trimester Z34.93 POCT urinalysis dipstick manually resulted Return OB: Patient presents today for a routine obstetrics appointment. Patient is currently 31w6d . Patient states she is doing well [...] Rubio documented in this encounter [facility] History of Present illness Narrative 07-02-2024 [...] Rubio documented in this encounter [facility] History of Present illness Narrative 06-16-2024 Hui Davies LPN - 06/16/2024 2:50 PM EST Note Date [...] nursing note reviewed. Exam conducted with a biometric fingerprinting technician present. Vitals: Estimated body mass index is [...] Rubio documented in this encounter [facility] History of Present illness Narrative 04-16-2024 Ashlee Sunshine LPN - 04/16/2024 11:30 AM EDT Note Date & Type Note Facility 04-16-2024 History of Presen t illness Narrative Reason [...] SYSTEMS Review of Systems: Review of Systems All other systems reviewed and are negative. OBJECTIVE Objective: Physical Exam Constitutional: Appearance: Normal appearance. She is well-developed. Genitourinary: Vulva normal. Breasts: Breasts are soft. Right: Normal. Left: Normal. Cardiovascular: Rate and Rhythm: Normal rate and [...] nursing note reviewed. Exam conducted with a biometric fingerprinting technician present. Vitals: Estimated body mass index is 27.29 kg/m as calculated from the following: Height as of 12/09/23: 5' 5 . Weight as of this encounter: 164 lb. BP: 104/68 Patient's last menstrual period was 12/12/2023. ASSESSMENT & PLAN ICD-10-CM 1. Well woman exam with routine gynecological exam Z01.419 Pap Smear 2. Second trimester Z34.92 POCT urinalysis dipstick manually resulted 3. Encounter for anatomic survey Z36.89 4. Exposure to STD Z20.2 SURESWAB(R) ADVANCED VAGINITIS PLUS, TMA CHLAMYDIA TRACHOMATIS (GENITO/STI) Neisseria gonorrhea DNA probe, direct 5. Need for maternal serum alpha-protein (MSAFP) screening Z36.1 Alpha fetoprotein, maternal Alpha fetoprotein, maternal 6. Screening, , for anatomic survey Z36.89 US OB ANATOMY SINGLE W US OB CERVICAL LENGTH Return OB/Annual Exam: Patient presents today for an annual exam/routine obstetrics appointment. Patient is currently 18w0d . Patient is doing well and states she has no complaints. Pap/cultures was obtained without difficulty and patient was given msAFP order to have obtained. Orders Placed This Encounter Procedures US OB ANATOMY SINGLE W US OB CERVICAL LENGTH CHLAMYDIA TRACHOMATIS (GENITO/STI) Neisseria gonorrhea DNA probe, direct Alpha fetoprotein, maternal POCT urinalysis dipstick manually resulted Follow Up: Patient is to return to our office in 4 weeks for routine OB appointment Documented by Ashlee Sunshine LPN on behalf of: Rod Osuna DO documented in this encounter [facility] Evaluation [...] dates documented in this encounter [facility] Evaluation note Note Date & Type Note Facility Evaluation note Diagnosis 31 weeks gestation of Third trimester state, incidental documented in this encounter [facility] Evaluation note Note Date & Type Note Facility Evaluation note Diagnosis Well woman exam with routine gynecological exam Routine gynecological examination Second trimester state, incidental Encounter for anatomic survey Exposure to STD Need for maternal serum alpha-protein (MSAFP) screening Screening, , for anatomic survey Encounter for anatomic survey documented in this encounter [facility] Summary Purpose Family History No Family History Records FoundNo Family History Records FoundNo Family History Records Found Advance Directives No Advanced Directives Records FoundNo Advanced Directives Records FoundNo Advanced Directives Records Found Additional Source Comments INFORMATION SOURCE (unrecogn ized section and content) DATE CREATED AUTHOR 10/23/2022 [facility] DATE CREATED AUTHOR AUTHOR'S ORGANIZ ATION 03/07/2024 [facility] DATE CREATED AUTHOR AUTHOR'S ORGANIZ ATION 07/25/2024 [facility] EPIC Reason for Visit [...] BE BASED ON THE PRIMARY CLINICAL RECORDS. [facility] [employer] [facility]. provides no warranty or guarantee of the accuracy or completeness of information in this document.
== END 2024-08-24 20:03 | disposition home or self-care (01) ==
LOC: LAB 20:02
PROVIDERS: Visit Provider Obstetrics & Gynecology
DX: Z34.93 Encounter for supervision of normal pregnancy, unspecified, third trimester (principal)
CPT/HCPCS: 36415

== ENCOUNTER 2024-09-10 05:04 | Inpatient (IN) | payer OTHER, SELFPAY ==
[2024-09-10] VITALS (45 sets, daily range): BP systolic 95–143; BP diastolic 48–118; PULSE 68–100; TEMP 36–36.8
--- OUTSIDE RECORDS SUMMARY | 2024-09-10 05:11 | XMS_ITS | CCD ---
Author Organization [facility] Care Team Providers Care Bus Transportation Manager Name Role Phone THAO ., DR VELASCO [...] DR NONE LISTED Primary Care Unavaila ble [place], DR DOROTHY Garcia Consulting Unavailable THAO ., [...] Provider Unavailabl e BELLA OSUNAY Attending Unavailable KINGSLEY TIERNEY Attending Unavailable ROD OSUNA Attending Unavailable THAOROD DHALWIAL Attending Unavailable THAOROD Attending Unavailable KINGSLEY, TIERNEY Attending Unavailable THAO, ROD Attending Unavailable KINGSLEY, TIERNEY Attending Unavailable KINGSLEY, TIERNEY Attending Unavailable THAOBELLAY Attending Unavailable Problems Active Problems Problem Classification [...] of ] 06-16-2024 Episodic Residual codes; unclassified (14 sources) Gestation period, 31 weeks; Translations: [31 weeks gestation of ] Onset: 07-22-2024 07-22-2024 Episodic Residual codes; unclassified (2 sources) Gestation period, 36 weeks; Translations: [36 weeks gestation of ] 08-24-2024 Episodic Residual codes; unclassified (2 sources) Gestation period, 37 weeks; Translations: [37 weeks gestation of ] 09-01-2024 Episodic Residual codes; unclassified (2 sources) Gestation period, 38 weeks; Translations: [38 weeks gestation of ] 09-08-2024 Episodic Past or Other Problems Problem Classification Problem Date Documented Date Episodic/Chronic Immunizations and screening for infectious disease (3 sources) Encounter for screening for human papillomavirus (HPV); Translations: [Exposure to sexually transmissible disorder] Onset: 09-01-2022 04-16-2024 Episodic Results Test Name Value Interpretation Reference Range Facility Urinalysis macro (dipstick) panel (U)on 09-08-2024 Bilirubin, UA Negative Negative - 4(70) +++ mg/dL [facility] Blood, UA Negative Negative - 50 Jl/mcL [facility] Clarity, UA Clear [facility] Color, UA Yellow [facility] Glucose, UA Negative Negative - 2000(110) ++++ mg/dL [facility] Interpretation and review of laboratory results Normal [facility] Ketones, UA Negative Negative - 160(16) ++++ mg/dL [facility] Leukocytes, UA Negative Negative - 500+++ Juan/mcL [facility] Nitrite, UA Negative Negative - Positive [facility] pH, UA 7 5 - 9 [facility] Protein, UA Negative Negative - 2000(20) ++++ mg/dL [facility] Spec Grav, UA 1.02 1 - 1.03 [facility] Urobilinogen, UA 0.2 0.2 - 12 mg/dL [facility] ALL MISCELLANEOUS TESTon MISCELLANEOUS TEST COMMENT . [facility] Comment on above: Test Ordered: [id number] Strep Gp B Culture+Rflx Strep Gp B Culture+Rflx Negative CB Reference Range: Negative Centers for Disease Control and Prevention (CDC) and [place] Congress of Obstetricians and Gynecologists (ACOG) guidelines for prevention of group B streptococcal (GBS) disease specify co-collection of a vaginal and rectal swab specimen to maximize sensitivity of GBS detection. Per the CDC and ACOG, swabbing both the lower vagina and rectum substantially increases the yield of detection compared with sampling the vagina alone. Penicillin G, ampicillin, or cefazolin are indicated for intrapartum prophylaxis of GBS colonization. Reflex susceptibility testing should be performed prior to use of clindamycin only on GBS isolates from penicillin- allergic women who are considered a high risk for anaphylaxis. Treatment with vancomycin without additional testing is warranted if resistance to clindamycin is noted. Performed at: [facility] [id number] Converter Supervisor: Warner Boles PhD, Phone: [phone] GROUP B STREP 252016 Group B Streptococcus Colonization Detection Culture With Re [facility] Urinalysis macro (dipstick) panel (U)on 08-24-2024 Bilirubin, UA Negative Negative - 4(70) +++ mg/dL [facility] Blood, UA Negative Negative - 50 Lj/mcL [facility] Clarity, UA Clear [facility] Color, UA Yellow [facility] Glucose, UA Negative Negative - 2000(110) ++++ mg/dL [facility] Interpretation and review of laboratory results Abnormal [facility] Ketones, UA Positive Negative - 160(16) ++++ mg/dL [facility] Comment on above: 15 mg Leukocytes, UA Trace Negative - 500+++ Juan/mcL [facility] Nitrite, UA Negative Negative - Positive [facility] pH, UA 6.5 5 - 9 [facility] Protein, UA Negative Negative - 1999(20) ++++ mg/dL [facility] Spec Grav, UA 1.02 1 - 1.03 [facility] Urobilinogen, UA 0.2 0.2 - 12 mg/dL [facility] Urinalysis macro (dipstick) panel (U)on 07-22-2024 Bilirubin, UA Negative Negative - 4(70) +++ mg/dL [facility] Blood, UA Negative Negative - 50 Jl/mcL [facility] Clarity, UA Clear [facility] Color, UA Yellow [facility] Glucose, UA Negative Negative - 1999(110) ++++ mg/dL [facility] Interpretation and review of laboratory results Abnormal [facility] Ketones, UA Negative Negative - 160(16) ++++ mg/dL [facility] Leukocytes, UA Few Negative - 500+++ Juan/mcL [facility] Comment on above: small Nitrite, UA Negative Negative - Positive [facility] pH, UA 6.4 5 - 9 [facility] Protein, UA Negative Negative - 1999(20) ++++ mg/dL [facility] Spec Grav, UA 1.02 1 - 1.03 [facility] Urobilinogen, UA 0.2 0.2 - 12 mg/dL [facility] Urinalysis macro (dipstick) panel (U)on 06-16-2024 Bilirubin, UA Negative Negative - 4(70) +++ mg/dL [facility] Blood, UA Negative Negative - 50 Jl/mcL [facility] Clarity, UA Clear [facility] Color, UA Yellow [facility] Glucose, UA Negative Negative - 1999(110) ++++ mg/dL [facility] Interpretation and review of laboratory results Normal [facility] Ketones, UA Negative Negative - 160(16) ++++ mg/dL [facility] Leukocytes, UA Negative Negative - 500+++ Juan/mcL [facility] Nitrite, UA Negative Negative - Positive [facility] pH, UA 6 5 - 9 [facility] Protein, UA Negative Negative - 1999(20) ++++ mg/dL [facility] Spec Grav, UA 1.03 1 - 1.03 [facility] Urobilinogen, UA 0.2 0.2 - 12 mg/dL [facility] GLUCOSE TOLERANCE 3 HOURon 1 GLUCOSE TOLERANCE 3 HOUR mg/dL [facility] Comment on above: GLU FAST 81 (<95) Co l: 06/11/24 0820 GLU 1HR 122 (<180) Col: 06/11/24 0820 GLU 2HR 101 (<155) Col: 06/11/24 1021 GLU 3HR 74 (<140) Col: 06/11/24 1120 [facility] ALL CBC WITH AUTO DIFFon BASOPHILS ABSOLUTE AUTO 0.1 [facility] Basophils/100 WBC (Bld) 0.4 % 0.2 - 2.0 % [facility] Eosinophils/100 WBC (Bld) 1.2 % 0.9 - 7.0 % [facility] Erythrocyte distribution width (RBC) [Ratio] 12 % 11.0 - 15.0 % [facility] Hematocrit (Bld) [Volume fraction] 35.7 % Low 36.0 - 48.0 % [facility] Hemoglobin (Bld) [Mass/Vol] 12 g/dL 12.0 - 16.0 g/dL [facility] IMMATURE GRANULOCYTES ABS AUTO 0.09 High [facility] Immature granulocytes/100 WBC (Bld) 0.8 % High 0.0 - 0.5 % [facility] Interpretation and review of laboratory results Abnormal [facility] LYMPHOCYTES ABSOLUTE AUTO 2.2 [facility] Lymphocytes/100 WBC (Bld) 18.7 % Low 20.5 - 60.0 % [facility] MCH (RBC) [Entitic mass] 31.5 pg 26.7 - 34.0 pg [facility] MCHC (RBC) [Mass/Vol] 33.6 g/dL 29.9 - 35.2 g/dL [facility] MCV (RBC) [Entitic vol] 93.7 fL 81.0 - 99.0 fL [facility] MONOCYTES ABSOLUTE AUTO 0.4 [facility] Monocytes/100 WBC (Bld) 3.6 % 1.7 - 12.0 % [facility] NEUTROPHILS ABSOLUTE AUTO 8.9 High [facility] Neutrophils/100 WBC (Bld) 75.3 % High 43.0 - 75.0 % [facility] Platelet mean volume (Bld) [Entitic vol] 10 fL 9.5 - 13.5 fL [facility] TB EO # 0.1 [facility] PLT 213 [facility] RBC 3.[address] [facility] WBC 11.8 High [facility] Urinalysis macro (dipstick) panel (U)on 05-14-2024 Bilirubin, UA Negative Negative - 4(70) +++ mg/dL [facility] Blood, UA Negative Negative - 50 Jl/mcL [facility] Clarity, UA Clear [facility] Color, UA Yellow [facility] Glucose, UA Negative Negative - 1999(110) ++++ mg/dL [facility] Interpretation and review of laboratory results Normal [facility] Ketones, UA Negative Negative - 160(16) ++++ mg/dL [facility] Leukocytes, UA Negative Negative - 500+++ Juan/mcL [facility] Nitrite, UA Negative Negative - Positive [facility] pH, UA 6.5 5 - 9 [facility] Protein, UA Negative Negative - 1999(20) ++++ mg/dL [facility] Spec Grav, UA 1.025 1 - 1.03 [facility] Urobilinogen, UA 0.2 0.2 - 12 mg/dL [facility] IGP,APTIMA HPV,AGE GDLNon AGE GDLN ACOG TESTING Note . [facility] Comment on above: TESTS RESULT FLAG UN ITS REF RANGE LAB Clinician Provided Cytology Information Source.............Cervix No. of containers..01 ThinPrep Vial Age Algo ACOG Ira... -09 09 FLAG LEGEND: L-Low Normal,H-High Normal,LL-Alert Low,HH-Alert High <-Panic Low,>-Panic High,A-Abnormal,AA-Critical Abnormal Performed at: 01 =G [facility] [place] [address] [facility] [place] [address] Chiquita Camacho MD, IGP, RFX APTIMA HPV ASCU Note . [facility] Comment on above: TESTS RESULT FLAG UN ITS REF RANGE LAB DIAGNOSIS: 02 NEGATIVE FOR INTRAEPITHELIAL LESION OR MALIGNANCY. Specimen adequacy: 02 Satisfactory for evaluation. No endocervical component is identified. Performed by: Laina Brush, Manual Arts Teacher . 02 Note: Note 02 The Pap [...] <-Panic Low,>-Panic High,A-Abnormal,AA-Critical Abnormal Performed at: [address] [facility] [address] [id number] Chiquita Camacho MD, Performed at: =G - [facility] [address] [id number] Converter Supervisor: Chiquita Camacho MD, Phone: [phone] Performed at: - [facility] [id number] Converter Supervisor: Chiquita Camacho MD, Phone: [phone] SPATULA-ALONE CERVIX [facility] Urinalysis macro (dipstick) panel (U)on 04-16-2024 Bilirubin, UA Negative Negative - 4(70) +++ mg/dL [facility] Blood, UA Negative Negative - 50 Jl/mcL [facility] Clarity, UA Clear [facility] Color, UA Yellow [facility] Glucose, UA Negative Negative - 1999(110) ++++ mg/dL [facility] Interpretation and review of laboratory results Normal [facility] Ketones, UA Negative Negative - 160(16) ++++ mg/dL [facility] Leukocytes, UA Negative Negative - 500+++ Juan/mcL [facility] Nitrite, UA Negative Negative - Positive [facility] pH, UA 6.0 5 - 9 [facility] Protein, UA Negative Negative - 2000(20) ++++ mg/dL [facility] Spec Grav, UA 1.025 1 - 1.03 [facility] Urobilinogen, UA 0.2 0.2 - 12 mg/dL [facility] HCG.beta subunit IA 3rd IS Q non 01-24-2024 HCG.beta subunit Qn 7740 m[IU]/mL Normal [facility] Comment on above: Result Comment: [...] neoplasms. Performed By: #### 2 0415-6 #### [facility] ([id number]) [address] [place] [address] [place] PREG ANATOMY SINGLEon US PREG ANATOMY [...] Date: 2022-10-22 21:32 Normal [address] [facility] CBC AUTO DIFFon 10-20-2022 BASO # 0.1 103/ul Normal 0.0-0.1 [facility] Comment on above: Performed By: #### C BC #### [facility] [address] [place] [address] Dr. Luis Edwards Basophils/100 WBC (Bld) 0.4 % Normal 0.2-2.0 [facility] Comment on above: Performed By: #### C BC #### [facility] [address] [place] [address] Dr. Luis Edwards EO # 0.3 103/ul Normal 0.0-0.7 [facility] Comment on above: Performed By: #### C BC #### [facility] [address] [place] [address] Dr. Luis Edwards Eosinophils/100 WBC (Bld) 1.7 % Normal 0.9-7.0 [facility] Comment on above: Performed By: #### C BC #### [facility] [address] [place] [address] Dr. Luis Edwards Erythrocyte distribution width (RBC) [Ratio] 13.1 % Normal 11.0-15.0 [facility] Comment on above: Performed By: #### C BC #### [facility] [address] [place] [address] Dr. Luis Edwards Hematocrit (Bld) [Volume fraction] 35.1 % Critically low 36.0-48.0 [facility] Comment on above: Performed By: #### C BC #### [facility] [address] [place] [address] Dr. Luis Edwards Hemoglobin (Bld) [Mass/Vol] 11.9 g/dL Critically low 12.0-16.0 [facility] Comment on above: Performed By: #### C BC #### [facility] [address] [place] [address] Dr. Luis Edwards IG # 0.17 10e3/ul Critically high 0.00-0.03 [facility] Comment on above: Performed By: #### C BC #### [facility] [address] [place] [address] Dr. Luis Edwards IG % 1.2 % Critically high 0.0-0.5 [facility] Comment on above: Performed By: #### C BC #### [facility] [address] [place] [address] Dr. Luis Edwards LYMPH # 2.3 103/ul Normal 1.2-3.8 [facility] Comment on above: Performed By: #### C BC #### [facility] [address] [place] [address] Dr. Luis Edwards Lymphocytes/100 WBC (Bld) 16.0 % Critically low 20.5-60.0 [facility] Comment on above: Performed By: #### C BC #### [facility] [address] [place] [address] Dr. Luis Edwards MANUAL DIFF REQ NO Normal [facility] Comment on above: Performed By: #### C BC #### [facility] [address] [place] [address] Dr. Luis Edwards MCH (RBC) [Entitic mass] 30.5 pg Normal 26.7-34.0 [facility] Comment on above: Performed By: #### C BC #### [facility] [address] [place] [address] Dr. Luis Edwards MCHC (RBC) [Mass/Vol] 33.9 g/dL Normal 29.9-35.2 [facility] Comment on above: Performed By: #### C BC #### [facility] [address] [place] [address] Dr. Luis Edwards MCV (RBC) [Entitic vol] 90.0 fL Normal 81.0-99.0 [facility] Comment on above: Performed By: #### C BC #### [facility] [address] [place] [address] Dr. Luis Edwards MONO # 0.6 103/ul Normal 0.3-0.8 [facility] Comment on above: Performed By: #### C BC #### [facility] [address] [place] [address] Dr. Luis Edwards Monocytes/100 WBC (Bld) 4.2 % Normal 1.7-12.0 [facility] Comment on above: Performed By: #### C BC #### [facility] [address] [address] [address] Luis Edwards NEUT # 11.2 103/ul Critically high 1.4-6.5 [facility] Comment on above: Performed By: #### C BC #### [facility] [address] [address] [address] Luis Edwards Neutrophils/100 WBC (Bld) 76.5 % Critically high 43.0-75.0 [facility] Comment on above: Performed By: #### C BC #### [facility] [address] [address] [address] Luis Edwards Platelet mean volume (Bld) [Entitic vol] 9.2 fL Critically low 9.5-13.5 [facility] Comment on above: Performed By: #### C BC #### [facility] [address] [address] [address] Luis Edwards PLT 247 103/ul Normal 150-450 [facility] Comment on above: Performed By: #### C BC #### [facility] [address] [address] [address] Luis Edwards RBC 3.90 106/ul Critically low 4.20-5.40 [facility] Comment on above: Performed By: #### C BC #### [facility] [address] [address] [address] Luis Edwards WBC 14.6 103/ul Critically high 4.0-11.0 [facility] Comment on above: Performed By: #### C BC #### [facility] [address] [address] [address] Luis Edwards GLUCOSE - 1HRon 10-20-2022 Glucose [Mass/Vol] 133 mg/dL Critically high 74-106 [facility] Comment on above: Performed By: #### C BC #### [facility] [address] [place] [address] Dr. Luis Edwards PAP ACOG PANEL 2: 21 to 29on 08-31-2022 . . Normal [facility] Comment on above: Performed By: #### 4 [id number] #### [facility] [address] [place] [address] Dr. Luis Edwards Age Gdln ACOG Testing 21-29 Normal [facility] Comment on above: Performed By: #### 4 [id number] #### [facility] [address] [place] [address] Dr. Luis Edwards DIAGNOSIS: Comment Normal [facility] Comment on above: Result Comment: NEGA TIVE FOR INTRAEPITHELIAL LESION OR MALIGNANCY. PREDOMINANCE OF COCCOBACILLI CONSISTENT WITH SHIFT IN VAGINAL LUCRECIA IS PRESENT. Performed By: #### 4 [id number] #### [facility] [address] [place] [address] Dr. Luis Edwards Methodology: Comment Normal [facility] Comment on above: Result Comment: This liquid based ThinPrep(R) pap test was screened with the use of an image guided system. Performed By: #### 4 [id number] #### [facility] [address] [place] [address] Dr. Luis Edwards Note: Comment [facility] Comment on above: Result Comment: The Pap smear is a screening test designed to aid in the detection of premalignant and malignant conditions of the uterine cervix. It is not a diagnostic procedure and should not be used as the sole means of detecting cervical cancer. Both false-positive and false-negative reports do occur. . Performed By: #### 4 [id number] #### [facility] [address] [place] [address] Dr. Luis Edwards Performed by: Comment Normal [facility] Comment on above: Result Comment: Braydon Munoz, Manual Arts Teacher Performed By: #### 4 [id number] #### [facility] [address] [place] [address] Dr. Luis Edwards Reflex Criteria: Comment [facility] Comment on above: Result Comment: The HPV DNA reflex criteria were not met with this specimen result therefore, no HPV testing was performed. . Performed By: #### 4 [id number] #### [facility] [address] [place] [address] Dr. Luis Edwards Specimen adequacy: Comment Normal [facility] Comment on above: Result Comment: Sati sfactory for evaluation. No endocervical component is identified. Performed By: #### 4 [id number] #### [facility] [address] [place] [address] Dr. Luis Edwards CHLAMYDIA/GONOCOCCUS TIANNA (SW AB/URINE/PAPon 08-30-2022 Chlamydia trachomatis, TIANNA Negative Normal Negative [facility] Comment on above: Performed By: #### C T/NGNA #### [facility] [address] [place] [address] Dr. Luis Edwards Neisseria gonorrhoeae, TIANNA Negative Normal Negative [facility] Comment on above: Performed By: #### C T/NGNA #### [facility] [address] [place] [address] Dr. Luis Edwards VAGINITIS/VAGINOSIS DNA PROB Benjamin 08-29-2022 Viktoria species Negative Normal Negative [facility] Comment on above: Performed By: #### C BC #### [facility] [address] [place] [address] Dr. Luis Edwards Gardnerella vaginalis Positive Abnormal Negative [facility] Comment on above: Performed By: #### C BC #### [facility] [address] [place] [address] Dr. Luis Edwards Trichomonas vaginalis Negative Normal Negative [facility] Comment on above: Performed By: #### C BC #### [facility] [address] [place] [address] Dr. Luis Edwards HEPATITIS C VIRUS AB W/ REFL EX QUANTon 07-22-2022 HCV AB <0.1 Normal 0.0-0.9 [facility] Comment on above: Performed By: #### H CVPCRR #### [facility] [address] [place] [address] Dr. Luis Edwards Interpretation: Comment Normal [facility] Comment on above: Result Comment: Nega tive Not infected with HCV, unless recent infection is suspected or other evidence exists to indicate HCV infection. Performed By: #### H CVPCRR #### [facility] [address] [place] [address] Dr. Luis Edwards HEP B SURFACE ANTIGEN SCREEN on 07-21-2022 HBsAg Screen Negative Normal Negative [facility] Comment on above: Performed By: #### H BSANS #### [facility] [address] [place] [address] Dr. Luis Edwards HIV 1 AND 2 WITH REFLEXon HIV Screen 4th Generation wRfx Non-Reactive Normal Non Reactive [facility] Comment on above: Result Comment: HIV Negative HIV-1/HIV-2 antibodies and HIV-1 p24 antigen were NOT detected. There is no laboratory evidence of HIV infection. Performed By: #### C BC #### [facility] [address] [place] [address] Dr. Luis Edwards RPR QUANTon 07-21-2022 Rapid Plasma Reagin, Quant Non-Reactive Normal NonRea<1:[address] [facility] Comment on above: Result Comment: Plea se Note: This test does not meet current guidelines for screening and diagnosis of syphilis. This test is intended for following treatment response in patients being treated for syphilis infection. To screen for syphilis infection, a reflex cascade that includes both RPR and a treponema-specific assay should be utilized, such as Treponema pallidum (Syphilis) Screening [place] (231816) or Rapid Plasma Reagin (RPR) Test With Reflex to Quantitative RPR and Confirmatory Treponema pallidum Antibodies (146851). Performed By: #### R PRQ #### [facility] [facility] [address] [place] [address] Dr. Luis Edwards RUBELLA AB IGGon 07-21-2022 Rubella Antibodies, IgG 1.57 index Normal Immune >0.[address] [facility] Comment on above: Result Comment: Non- immune <0.90 Equivocal 0.90 - 0.99 Immune >0.99 Performed By: #### R UBIGG #### [facility] [address] [place] [address] Dr. Luis Edwards CBC AUTO DIFFon 07-20-2022 BASO # 0.1 103/ul Normal 0.0-0.1 [facility] Comment on above: Performed By: #### C BC #### [facility] [address] [address] [address] Luis Edwards Basophils/100 WBC (Bld) 0.6 % Normal 0.2-2.0 [facility] Comment on above: Performed By: #### C BC #### [facility] [address] [address] [address] Luis Edwards EO # 0.2 103/ul Normal 0.0-0.[address] [facility] Comment on above: Performed By: #### C BC #### [facility] [address] [address] [address] Luis Edwards Eosinophils/100 WBC (Bld) 2.0 % Normal 0.9-7.[address] [facility] Comment on above: Performed By: #### C BC #### [facility] [address] [place] [address] Dr. Luis Edwards Erythrocyte distribution width (RBC) [Ratio] 13.6 % Normal 11.0-15.0 [facility] Comment on above: Performed By: #### C BC #### [facility] [address] [place] [address] Dr. Luis Edwards Hematocrit (Bld) [Volume fraction] 35.6 % Critically low 36.0-48.0 [facility] Comment on above: Performed By: #### C BC #### [facility] [address] [place] [address] Dr. Luis Edwards Hemoglobin (Bld) [Mass/Vol] 11.8 g/dL Critically low 12.0-16.[address] [facility] Comment on above: Performed By: #### C BC #### [facility] [address] [place] [address] Dr. Luis Edwards IG # 0.03 10e3/ul Normal 0.00-0.[address] [facility] Comment on above: Performed By: #### C BC #### [facility] [address] [address] [address] Luis Edwards IG % 0.3 % Normal 0.0-0.[address] [facility] Comment on above: Performed By: #### C BC #### [facility] [address] [place] [address] Dr. Luis Edwards LYMPH # 1.9 103/ul Normal 1.2-3.[address] [facility] Comment on above: Performed By: #### C BC #### [facility] [address] [place] [address] Dr. Luis Edwards Lymphocytes/100 WBC (Bld) 21.0 % Normal 20.5-60.[address] [facility] Comment on above: Performed By: #### C BC #### [facility] [address] [place] [address] Dr. Luis Edwards MANUAL DIFF REQ NO Normal [facility] Comment on above: Performed By: #### C BC #### [facility] [address] [place] [address] Dr. Luis Edwards MCH (RBC) [Entitic mass] 28.7 pg Normal 26.7-34.[address] [facility] Comment on above: Performed By: #### C BC #### [facility] [address] [place] [address] Dr. Luis Edwards MCHC (RBC) [Mass/Vol] 33.1 g/dL Normal 29.9-35.[address] [facility] Comment on above: Performed By: #### C BC #### [facility] [address] [place] [address] Dr. Luis Edwards MCV (RBC) [Entitic vol] 86.6 fL Normal 81.0-99.[address] [facility] Comment on above: Performed By: #### C BC #### [facility] [address] [place] [address] Dr. Luis Edwards MONO # 0.4 103/ul Normal 0.3-0.[address] [facility] Comment on above: Performed By: #### C BC #### [facility] [address] [place] [address] Dr. Luis Edwards Monocytes/100 WBC (Bld) 4.9 % Normal 1.7-12.[address] [facility] Comment on above: Performed By: #### C BC #### [facility] [address] [place] [address] Dr. Luis Edwards NEUT # 6.3 103/ul Normal 1.4-6.5 [facility] Comment on above: Performed By: #### C BC #### [facility] [address] [place] [address] Dr. Luis Edwards Neutrophils/100 WBC (Bld) 71.2 % Normal 43.0-75.0 [facility] Comment on above: Performed By: #### C BC #### [facility] [address] [place] [address] Dr. Luis Edwards Platelet mean volume (Bld) [Entitic vol] 10.1 fL Normal 9.5-13.5 [facility] Comment on above: Performed By: #### C BC #### [facility] [address] [place] [address] Dr. Luis Edwards PLT 262 103/ul Normal 150-450 [facility] Comment on above: Performed By: #### C BC #### [facility] [address] [place] [address] Dr. Luis Edwards RBC 4.11 106/ul Critically low 4.20-5.40 [facility] Comment on above: Performed By: #### C BC #### [facility] [address] [place] [address] Dr. Luis Edwards WBC 8.8 103/ul Normal 4.0-11.0 [facility] Comment on above: Performed By: #### C BC #### [facility] [address] [place] [address] Dr. Luis Edwards CULTURE URINEon 07-20-2022 CULTURE URINE Culture Observations : NO GROWTH. Normal [facility] Comment on above: Performed By: #### C BC #### [facility] [address] [place] [address] Dr. Luis Edwards GLYCOHEMOGLOBIN A1Con 2021 ADA RECOMMENDATION SEE BELOW Normal [facility] Comment on above: Result Comment: ADA RECOMMENDED LIMIT 4.0 - 6.0 ADA THERAPEUTIC TARGET < 7.0 ACTION SUGGESTED > 7.0 Performed By: #### A 1C #### [facility] [address] [place] [address] Dr. Luis Edwards Glucose [Mass/Vol] 103 mg/dL Normal [facility] Comment on above: Performed By: #### A 1C #### [facility] [address] [place], [place] [id number] Dr. Luis Edwards HbA1c (Bld) [Mass fraction] 5.2 % Normal 4.5-6.2 [facility] Comment on above: Performed By: #### A 1C #### [facility] [address] [place] [address] Dr. Luis Edwards ZAKI BOX TEST PT SEND OUTo n 07-20-2022 SENT TO REF LAB 07/20/2022 Normal [facility] Comment on above: Performed By: #### N BOX #### [facility] [address] [place] [address] Dr. Luis Edwards TYPE AND SCREENon 07-20-2022 TYPE AND SCREEN Negative Normal [facility] Comment on above: Performed By: #### C BC #### [facility] [address] [place] [address] Dr. Luis Edwards US PREG <14 WKSon 07-20-2022 US PREG <14 WKS EXAMINATION: US PREG <14 WKS HISTORY: Irregular periods COMPARISON:none. FINDINGS: Gestational sac 5.23cm, 11w0d CRL 6.13cm, 12w4d Placenta: posterior Heart rate 164bpm Cervix: 4.1 cm, closed The ovaries are normal in size and contour Clinical age: 12w1d Clinical danile: 01/31/2023 Ultrasound age: 12w4d Ultrasound daniel: 01/28/23 IMPRESSION: Viable intrauterine gestation of 12w4d Electronically authenticated by: DOROTHY MCCULLOUGH Date: 2022-07-20 16:09 Normal [facility] Vital Signs Date Time Vital Sign Value Performing Clinician Ryan clemente 09-08-2024 14:23-0500 Body mass index (BMI) [Ratio] 30.19 kg/m2 Tierney PRECIADO Work Phone: [facility] 09-08-2024 14:23-0500 Body weight 82.28 kg Tierney PRECIADO Work Phone: [facility] 09-08-2024 14:23-0500 Diastolic blood pressure 70 mm[Hg] Tierney PRECIADO Work Phone: [facility] 09-08-2024 14:23-0500 Systolic blood pressure 120 mm[Hg] Tierney PRECIADO Work Phone: [facility] 09-01-2024 14:10-0500 Body mass index (BMI) [Ratio] 30.09 kg/m2 Rod Thao DO Work Phone: [facility] 09-01-2024 14:10-0500 Body weight 82.01 kg Rod Thao DO Work Phone: [facility] 09-01-2024 14:10-0500 Diastolic blood pressure 70 mm[Hg] Rod Thao DO Work Phone: [facility] 09-01-2024 14:10-0500 Systolic blood pressure 120 mm[Hg] Rod Thao DO Work Phone: [facility] 08-24-2024 15:58-0500 Body mass index (BMI) [Ratio] 30.12 kg/m2 Rod Thao DO Work Phone: [facility] 08-24-2024 15:58-0500 Body weight 82.1 kg Rod Thao DO Work Phone: [facility] 08-24-2024 15:58-0500 Diastolic blood pressure 70 mm[Hg] Rod Thao DO Work Phone: [facility] 08-24-2024 15:58-0500 Systolic blood pressure 122 mm[Hg] Rod Thao DO Work Phone: [facility] 07-22-2024 14:20-0500 Body mass index (BMI) [Ratio] 29.79 kg/m2 Tierney PRECIADO Work Phone: [facility] 07-22-2024 14:20-0500 Body weight 81.19 kg Tierney PRECIADO Work Phone: [facility] 07-22-2024 14:20-0500 Diastolic blood pressure 68 mm[Hg] Tierney Kingsley PA Work Phone: [facility] 07-22-2024 14:20-0500 Systolic blood pressure 122 mm[Hg] Tierney Kingsley PA Work Phone: [facility] 07-02-2024 14:55-0500 Body mass index (BMI) [Ratio] 29.69 kg/m2 Tierney [place] PA Work Phone: [facility] 07-02-2024 14:55-0500 Body weight 80.92 kg Tierney [place] PA Work Phone: [facility] 07-02-2024 14:55-0500 Diastolic blood pressure 62 mm[Hg] Tierney [place] PA Work Phone: [facility] 07-02-2024 14:55-0500 Systolic blood pressure 106 mm[Hg] Tierney [place] PA Work Phone: [facility] 06-16-2024 14:58-0500 Body mass index (BMI) [Ratio] 28.96 kg/m2 Rod Thao DO Work Phone: [facility] 06-16-2024 14:58-0500 Body weight 78.93 kg Rod Thao DO Work Phone: [facility] 06-16-2024 14:58-0500 Diastolic blood pressure 62 mm[Hg] Rod Thao DO Work Phone: [facility] 06-16-2024 14:58-0500 Systolic blood pressure 114 mm[Hg] Rod Thao DO Work Phone: [facility] 05-14-2024 14:29-0400 Body mass index (BMI) [Ratio] 27.29 kg/m2 Tierney Kingsley PA Work Phone: [facility] 05-14-2024 14:29-0400 Body weight 74.39 kg Tierney Kingsley PA Work Phone: [facility] 05-14-2024 14:29-0400 Diastolic blood pressure 64 mm[Hg] Tierney Kingsley PA Work Phone: [facility] 05-14-2024 14:29-0400 Systolic blood pressure 110 mm[Hg] Tierney PRECIADO Work Phone: [facility] 04-16-2024 12:25-0400 Body mass index (BMI) [Ratio] 27.29 kg/m2 Rod Thao DO Work Phone: [facility] 04-16-2024 12:25-040 Body weight 74.39 kg Rod Thao DO Work Phone: [facility] 04-16-2024 12:25-0400 Diastolic blood pressure 68 mm[Hg] Rod Thao DO Work Phone: [facility] 04-16-2024 12:25-0400 Systolic blood pressure 104 mm[Hg] Rod Thao DO Work Phone: [facility] Healthcare Encounters Encounter Date Encounter Type Care Provider Facility Start: 09-08-2024 End: 09-08-2024 flow sheet Tierney PRECIADO Work Phone: [facility] Comment on above: Third trimester preg olivia; 38 weeks gestation of Start: 09-08-2024 End: 09-08-2024 ambulatory TIERNEY WYNN Not Available Start: 09-08-2024 End: 09-08-2024 Bamboo flowsheet Tierney PRECIADO Work Phone: [facility] Start: 09-08-2024 End: 09-08-2024 Bamboo flowsheet Tierney PRECIADO Work Phone: [facility] Start: 09-01-2024 End: 09-01-2024 Bamboo flowsheet Rod Thao DO Work Phone: [facility] Start: 09-01-2024 End: 09-01-2024 Bamboo flowsheet Rod Thao DO Work Phone: [facility] Start: 09-01-2024 End: 09-01-2024 flow sheet Rod Thao DO Work Phone: [facility] Comment on above: Third trimester preg olivia; 37 weeks gestation of Start: 09-01-2024 End: 09-01-2024 ambulatory ROD THAO Not Available Start: 08-24-2024 End: 08-24-2024 flow sheet Rod Thao DO Work Phone: [facility] Comment on above: Third trimester preg olivia; 36 weeks gestation of Start: 08-24-2024 End: 08-24-2024 ambulatory ROD THAO Not Available Start: 08-24-2024 End: 08-24-2024 Bamboo flowsheet Rod Thao DO Work Phone: [facility] Start: 08-24-2024 End: 08-29-2024 Bamboo flowsheet Rod Thao DO Work Phone: [facility] Start: 08-24-2024 End: 08-29-2024 Clinisync Result Encounter Rod Thao DO Work Phone: [facility] Unsolicited Start: 07-22-2024 End: 07-22-2024 Bamboo flowsheet Tierney PRECIADO Work Phone: [facility] Start: 07-22-2024 End: 07-22-2024 Bamboo [...] 05-14-2024 flow sheet Tierney PRECIADO Work Phone: [facility] Comment on above: Second trimester pre gnancy; 22 weeks gestation of ; Diabetes mellitus screening Start: 05-14-2024 End: 05-14-2024 ambulatory TIERNEY WYNN Not Available Start: 05-14-2024 End: 05-14-2024 Bamboo flowsheet Tierney PRECIADO Work Phone: [facility] Start: 05-14-2024 End: 05-14-2024 Bamboo flowsheet Tierney Wynn PA Work Phone: [facility] Start: 04-16-2024 End: 04-16-2024 Bamboo flowsheet Rod Thao DO Work Phone: [facility] Start: 04-16-2024 End: 04-21-2024 Bamboo flowsheet Rod Thao DO Work Phone: [facility] Start: 04-16-2024 End: 04-21-2024 Clinisync Result Encounter Rod Thao DO Work Phone: [facility] Unsolicited Start: 04-16-2024 End: 04-16-2024 Patient encounter procedure Rod Thao DO Work Phone: [facility] Start: 04-16-2024 End: 04-16-2024 flow sheet Rod Thao DO Work Phone: [facility] Comment on above: Well woman exam with routine gynecological exam; Second trimester ; Encounter for anatomic survey; Exposure to STD; Need for maternal serum alpha-protein (MSAFP) screening; Screening, , for anatomic survey Start: 04-16-2024 End: 04-16-2024 ambulatory ROD OSUNA Not Available Start: 03-06-2024 End: [facility]06[facility] Start: 02-21-2024 End: 02-21-2024 ambulatory ROD THAO Not Available Start: 01-24-2024 End: 01-24-2024 ambulatory ROD R THAO [facility] Start: 01-09-2024 End: 01-09-2024 ambulatory ROD THAO [...] Date Procedure Procedure Detail Performing Clinician Start: 09-08-2024 Urnls dip stick/tabl et rgnt non-auto w/o micrscp Tierney PRECIADO Work Phone: Start: 08-24-2024 Urnls dip stick/tabl et rgnt non-auto w/o micrscp Rod Thao DO Work Phone: Start: 08-24-2024 ALL MISCELLANEOUS TEST Rod Thao DO Work Phone: Start: 07-22-2024 Urnls dip stick/tabl et rgnt [...] w/o micrscp Tierney PRECIADO Work Phone: Start: 04-16-2024 Urnls dip stick/tabl et rgnt non-auto w/o micrscp Rod Thao DO Work Phone: Start: 04-16-2024 IGP,APTIMA HPV,AGE GDLN Rod Thao DO Work Phone: Plan of Treatment Date Care Activity Detail Author Start: 10-05-2024 End: 10-05-2024 Patient encounter procedure 10/05/2024 1:10 PM EST Consult [facility] [address] [place] [phone] Rod Osuna, DO [address] [place] [address] [facility] Start: 09-08-2024 End: 09-08-2024 Patient encounter procedure [facility] Comment on above: Arrived Start: 09-01-2024 End: 09-01-2024 Patient encounter procedure [facility] Comment on above: Arrived Start: 08-24-2024 End: 08-24-2024 Patient encounter procedure 08/24/2024 3:50 PM EST Routine [facility] [address] [place] [phone] Rod Osuna, DO [address] [place] [address] Arrived [facility] Comment on above: Arrived Start: 08-24-2024 End: 08-24-2025 CULTURE, GROUP B STREP WITH SUSCEPTIBLITY CULTURE, GROUP B STREP WITH SUSCEPTIBLITY Lab Routine Third trimester Expected: 08/24/2024, Expires: 08/24/2025 [facility] Work Phone: Comment on above: Expected: 08/24/2024 , Expires: 08/24/2025 Start: 08-06-2024 End: 08-06-2024 Patient encounter procedure 08/06/2024 9:50 AM EST Routine [facility] [address] [place] [phone] Rod Osuna, DO [address] [place] [address] [facility] Start: 07-22-2024 End: 07-22-2024 Patient encounter procedure [facility] Comment on above: Arrived Start: 07-02-2024 End: 07-02-2024 Patient encounter procedure 07/02/2024 3:40 PM EST Routine [facility] [address] [place] [phone] Tierney Wynn PA [address] [place] [address] [facility] Start: 07-02-2024 End: 07-02-2024 Patient encounter procedure 07/02/2024 2:20 PM EST Routine [facility] [address] [address] [place] [phone] Tierney Wynn PA [address] [place] [address] Arrived [facility] Comment on above: Arrived Start: 07-02-2024 End: 07-02-2025 US for US OB SCAN FOR GROWTH Imaging Routine size inconsistent with dates Expected: 07/02/2024 (Approximate), Expires: 07/02/2025 [facility] Healthcare Work Phone: Comment on above: Expected: 07/02/2024 (Approximate), Expires: 07/02/2025 Start: 06-16-2024 End: 06-16-2024 Patient encounter procedure [facility] Comment on above: Arrived Start: 05-14-2024 End: 05-14-2024 Patient encounter procedure [facility] Comment on above: Arrived Start: 05-14-2024 End: 05-14-2025 CBC panel - Blood by Automated count CBC Lab Routine Diabetes mellitus screening Expected: 05/14/2024 (Approximate), Expires: 05/14/2025 [facility] Healthcare Work Phone: Comment on above: Expected: 05/14/2024 (Approximate), Expires: 05/14/2025 Start: 05-14-2024 End: 05-14-2025 Measurement of glucose 1 hour after glucose challenge for glucose tolerance test Glucose tolerance, 1 hour Lab Routine Diabetes mellitus screening Expected: 05/14/2024 (Approximate), Expires: 05/14/2025 [facility] Healthcare Comment on above: Expected: 05/14/2024 (Approximate), Expires: 05/14/2025 Start: 04-16-2024 End: 05-16-2024 Alpha fetoprotein, maternal Alpha fetoprotein, maternal Lab Routine Need for maternal serum alpha-protein (MSAFP) screening Expected: 04/16/2024 (Approximate), Expires: 05/16/2024 [facility] Comment on above: Expected: 04/16/2024 (Approximate), Expires: 05/16/2024 Start: 04-16-2024 End: 04-16-2025 US for US OB ANATOMY SINGLE W US OB CERVICAL LENGTH Imaging Routine Screening, , for anatomic survey Expected: 04/16/2024 (Approximate), Expires: 04/16/2025 [facility] Healthcare Comment on above: Expected: 04/16/2024 (Approximate), Expires: 04/16/2025 Start: 04-16-2024 End: 04-16-2024 Patient encounter procedure 04/16/2024 11:30 AM EDT Routine [facility] [address] [facility] [id number] Rod Osuna, DO [address] [facility] [place] [address] Arrived [facility] Comment on above: Arrived CHLAMYDIA TRACHOMATI S (GENITO/STI) CHLAMYDIA TRACHOMATIS (GENITO/STI) Lab Routine Exposure to STD Ordered: 04/16/2024 [facility] Comment on above: Ordered: 04/16/2024 Cytology Cervical or vaginal smear or scraping study Pap Smear Pathology and Cytology Routine Well woman exam with routine gynecological exam Ordered: 04/16/2024 [facility] Comment on above: Ordered: 04/16/2024 Neisseria gonorrhoea e DNA [Presence] in Unspecified specimen by TIANNA with probe detection Neisseria gonorrhea DNA probe, direct Lab Routine Exposure to STD Ordered: 04/16/2024 [facility] Comment on above: Ordered: 04/16/2024 SURESWAB(R) ADVANCED VAGINITIS PLUS, TMA SURESWAB(R) ADVANCED VAGINITIS PLUS, TMA Pathology and Cytology Routine Exposure to STD Ordered: 04/16/2024 [facility] Work Phone: Comment on above: Ordered: 04/16/2024 Payers Date Payer Category Payer Private Health Insurance [id number] 2020 Medicaid [facility] MEDICAID [place] MEDICAID [id number] 2020-Present [address] [place] [address] [id number] 2020 Medicaid (Managed Care) [facility] MEDICAID [id number] 1994 Unknown [id number] [id number]. 593 1994 Unknown [id number] 2.16840.1.509488.3.579.2. 593 1994 Unknown [id number] 2.16840.1.112219.3.579.2. 593 1994 Unknown [id number] 2.16840.1.179947.3.579.2. 593 1994 Unknown [id number] 2.16.840.1.702859.3.579.2. 1286 1994 Unknown [id number] 2.16840.1.378239.3.579.2. 1286 1994 Unknown [id number] 2.16840.1.775434.3.579.2. 1259 1994 Unknown [id number] 2.16.840.1.783020.3.579.2. 1259 1994 Unknown [id number] 2.16.840.1.627542.3.579.2. 9 1994 Unknown [id number] 2.16.840.1.125215.3.579.2. 1259 1994 Unknown [id number] 2.16.840.1.208192.3.579.2. 9 1994 Unknown [id number] 2.16.840.1.180156.3.579.2. 1259 1994 Unknown [id number] 2.16.840.1.750206.3.579.2. 9 1994 Unknown [id number] 2.16.840.1.384744.3.579.2. 9 1994 Unknown [id number] 2.16.840.1.170672.3.579.2. 9 1994 Unknown [id number] 2.16.840.1.254941.3.579.2. 1259 1994 Unknown [id number] 2.16.840.1.306128.3.579.2. 1259 1959 Self-pay [id number] 1959 Unknown [id number] 1959 Unknown [id number] Unknown [id number] 2.16.840.1.132358.3.579.2. 593 Social History Date Type Detail Facility Start: 01-19-2023 Tobacco smoking stat [facility] Never smoked tobacco [facility] Start: 01-19-2023 Tobacco use and exposure Smoke less tobacco non-user [facility] Start: 04-16-2024 End: 09-08-2024 Alcoholic beverage intake Lifetime non-drinker (finding) [facility] Start: 02-28-2023 End: 12-09-2023 [facility] Start: 02-28-2023 End: 12-09-2023 Tobacco use panel [facility] Start: 12-26-2023 [facility] Start: 1995 Sex assigned at Not on file [facility] Clinical Notes 04-16-2024 to 09-08-2024 ILANA Ruibo - 09/08/2024 2:20 PM Mary Davies LPN - 09/01/2024 2:00 PM BENJAMINLatia AcostaLUCIE - 08/24/2024 3:50 PM ILANA Matta - 07/22/2024 1:30 PM ILANA Matta - 07/02/2024 2:20 PM EST Note Date & Type Note Facility 09-08-2024 History of Presen t illness Narrative Reason [...] reviewed. Vitals: Estimated body mass index is 30.19 kg/m as calculated from the following: Height as of 12/09/23: 5' 5 . Weight as of this encounter: 181 lb 6.4 oz. BP: 120/70 Patient's last menstrual period was 12/12/2023. ASSESSMENT & PLAN ICD-10-CM 1. Third trimester Z34.93 POCT urinalysis dipstick manually resulted 2. 38 weeks gestation of Z3A.38 POCT urinalysis dipstick manually resulted Return OB: Patient presents today for a routine obstetrics appointment. Patient is currently 38w5d . Patient states she is doing well but has complaints of being tired due to current . Patient has verbalizes frequent movement. labor precautions was discussed/given and patient was instructed to perform kick counts three times a day. Orders Placed This Encounter Procedures POCT urinalysis dipstick manually resulted Follow Up: Patient is to return to office in 1 week for routine OB appointment. documented in this encounter [facility] 09-01-2024 History of Presen t illness Narrative Reason [...] appearance. She is well-developed. Genitourinary: Vulva normal. Cardiovascular: Rate and Rhythm: Normal rate and [...] nursing note reviewed. Exam conducted with a chiropractic physician present. Vitals: Estimated body mass index is 30.09 kg/m as calculated from the following: Height as of 12/09/23: 5' 5 . Weight as of this encounter: 180 lb 12.8 oz. BP: 120/70 Patient's last menstrual period was 12/12/2023. ASSESSMENT & PLAN ICD-10-CM 1. Third trimester Z34.93 2. 37 weeks gestation of Z3A.37 Return OB: Patient presents today for a routine obstetrics appointment. Patient is currently 37w5d . Patient states she is doing well but has complaints of being tired due to current . Patient has verbalizes frequent movement. labor precautions was discussed/given and patient was instructed to perform kick counts three times a day. No orders of the defined types were placed in this encounter. Follow Up: Patient is to return to office in 1 week for routine OB appointment. Documented by Hui Davies LPN on behalf of: Rod Osuna DO documented in this encounter [facility] 08-24-2024 History of Presen t illness Narrative Reason [...] appearance. She is well-developed. Genitourinary: Vulva normal. Cardiovascular: Rate and Rhythm: Normal rate and [...] nursing note reviewed. Exam conducted with a chiropractic physician present. Vitals: Estimated body mass index is 29.79 kg/m as calculated from the following: Height as of 12/09/23: 5' 5 . Weight as of 07/22/24: 179 lb. BP: Patient's last menstrual period was 12/12/2023. ASSESSMENT & PLAN ICD-10-CM 1. Third trimester Z34.93 2. 36 weeks gestation of Z3A.36 Patient is doing well but has complaints of being tired and having maternal discomfort due to . Patient verbalized frequent movement and was instructed to perform kick counts three times per day. labor precautions were given, LARC consent was signed/declined, and GBS was obtained. Follow Up: Patient is to return to office in 1 week for routine OB appointment Documented by Latia Acosta MA on behalf of: Rod Osuna DO documented in this encounter [facility] 07-22-2024 History of Presen t illness Narrative [...] of: ILANA Rubio documented in this encounter [facility] 07-02-2024 History of Presen t illness Narrative [...] of: ILANA Rubio documented in this encounter [facility] 06-16-2024 History of Presen t illness Narrative [...] nursing note reviewed. Exam conducted with a chiropractic physician present. Vitals: Estimated body mass index is [...] Rod Osuna DO documented in this encounter [facility] 05-14-2024 History of Presen t illness Narrative [...] of: ILANA Rubio documented in this encounter [facility] 04-16-2024 History of Presen t illness Narrative [...] nursing note reviewed. Exam conducted with a chiropractic physician present. Vitals: Estimated body mass index is [...] in this encounter [facility] Evaluation note Diagnosis Second trimester state, incidental 22 weeks gestation of Diabetes mellitus screening Screening for diabetes mellitus [facility] Diagnosis Second trimester state, incidental 26 weeks gestation of [facility]* Diagnosis Third trimester state, incidental size inconsistent with dates [facility] Diagnosis 31 weeks gestation of Third trimester state, incidental [facility] Diagnosis Well woman exam with routine gynecological exam Routine gynecological examination Second trimester state, incidental Encounter for anatomic survey Exposure to STD Need for maternal serum alpha-protein (MSAFP) screening Screening, , for anatomic survey Encounter for anatomic survey [facility] Diagnosis Third trimester state, incidental 36 weeks gestation of [facility]* Diagnosis Third trimester state, incidental 37 weeks gestation of [facility] Diagnosis Third trimester state, incidental 38 weeks gestation of documented in this encounter [facility] Summary Purpose Family History No Family History Records FoundNo Family History Records FoundNo Family History Records Found Advance Directives No Advanced Directives Records FoundNo Advanced Directives Records FoundNo Advanced Directives Records Found Additional Source Comments INFORMATION SOURCE (unrecogn ized section and content) DATE CREATED AUTHOR 10/23/[address] [facility] DATE CREATED AUTHOR AUTHOR'S ORGANIZ ATION 03/07/2024 [facility] DATE CREATED AUTHOR AUTHOR'S ORGANIZ ATION 09/10/2024 [facility] EPIC Reason for Visit (unrecogniz ed [...] BE BASED ON THE PRIMARY CLINICAL RECORDS. [employer] provides no warranty or guarantee of the accuracy or completeness of information in this document.
[2024-09-10 06:04] LABS: Hemoglobin 11.3 g/dL (12.0-16.0); Mean Corpuscular HGB Conc 34.2 g/dL (29.9-35.2); Mean Corpuscular Hemoglobin 31.3 pg (26.7-34.0); Mean Corpuscular Volume 91.4 fL (81.0-99.0); Platelet Count 231 10^3/uL (150-450); Red Blood Count 3.61 10^6/uL (4.20-5.40); Red Cell Distribution Width 12.8 % (11.0-15.0); White Blood Count 10.9 10^3/uL (4.0-11.0)
[2024-09-10 06:17] LABS: Amphetamine Screen Urine NEGATIVE (NEGATIVE); Barbiturates Screen Urine NEGATIVE (NEGATIVE); Benzodiazepines Screen Urine NEGATIVE (NEGATIVE); Buprenorphine Screen Urine NEGATIVE (NEGATIVE); Cannabinoid Screen Urine NEGATIVE (NEGATIVE); Cocaine Screen Urine NEGATIVE (NEGATIVE); Methadone Screen Urine NEGATIVE (NEGATIVE); Methamphetamines Screen Urine NEGATIVE (NEGATIVE); Opiate Screen Urine NEGATIVE (NEGATIVE); Oxycodone Screen Urine NEGATIVE (NEGATIVE); Phencyclidine Screen Urine NEGATIVE (NEGATIVE); Tricyclic Antidepressant Urine NEGATIVE (NEGATIVE)
[2024-09-10] MEDS: 0.9 % SODIUM CHLORIDE 1,000 ML 125 ML IV ×2 (06:17→12:25)
[2024-09-10] MEDS: OXYTOCIN/0.9 % SODIUM CHLORIDE 10 UNITS/500 ML PLAST..BAG 6 UNIT IV (06:18)
[2024-09-10] MEDS: 0.9 % SODIUM CHLORIDE 1,000 ML 999 ML IV (10:37)
[2024-09-10] MEDS: ROPIVACAINE HCL/PF 400 MG/200 ML PREMIX 6 MG EPIDURAL (10:57)
--- NOTE | 2024-09-10 11:47 | PC.NURSE ---
Clear, pale urine obtained upon insertion.
[2024-09-10] MEDS: OXYTOCIN/0.9 % SODIUM CHLORIDE 20 UNITS/1,000 ML PLAST..BAG 125 UNIT IV (15:19)
--- NOTE | 2024-09-10 15:22 | PM.OBPRCVD ---
Procedure Intrapartal events: None Induction method: per pitocin protocol Delivery augmentation: rupture of membranes and pitocin Delivery monitor: external FHT and external uterine Route of delivery: Episiotomy Description: none L&D Laceration Description: none Anesthesia type: Epidural Disposition: floor Delivery date: 09/10/24 Gender: male presentation: vertex Placental delivery description: Spontaneous cord description: 3 Vessels and Nuchal Cord
--- NOTE | 2024-09-10 21:08 | W.PC.ACHO ---
Registration Status: ADM IN Primary Language: Djiboutian Preferred Language: Djiboutian 1900-RN reports to Kayla MELENDEZ. Care relinquished. Active Medications Generic Name Dose Route Start Last Admin Trade Name Ej PRN Reason Stop Dose Admin Acetaminophen 650 mg 09/10/24 15:23 Acetaminophen 325 Mg Tablet PO Q6H PRN Mild Pain Al Hydroxide/Mg Hydroxide 2,400 mg 09/10/24 15:23 Magnesium Hydroxide 2,400 Mg/10 Ml Oral.Susp PO Q6H PRN Dyspepsia Benzocaine/Menthol 1 applic 09/10/24 15:23 Benzocaine/Menthol 85 Gram Hyder Bottle TOPICAL Q2H PRN Pain Carboprost Tromethamine 250 mcg 09/10/24 05:24 Carboprost Tromethamine 250 Mcg/Ml 1 Ml Vial IM 09/12/24 05:24 Q15M PRN Bleeding Diphenhydramine HCl 25 mg 09/10/24 05:24 Diphenhydramine Hcl 50 Mg/Ml Vial IV 09/11/24 05:27 Q6H PRN Itching Diphtheria/Pertussis/Tetanus Vacc 0.5 ml 09/12/24 09:00 Adacel Diph,Pertuss(Acell),Tet Vac/Pf 0.5 Ml Adult Syringe IM 09/12/24 09:01 .ONCE ONE Docusate Sodium 100 mg 09/11/24 09:00 Docusate Sodium 100 Mg Capsule PO BID BEN Ephedrine Sulfate 5 mg 09/10/24 05:24 Ephedrine Sulfate 50 Mg/Ml Vial IV 09/11/24 05:27 Q5M PRN Blood Pressure - Low Fentanyl Citrate 100 mcg 09/10/24 05:24 Fentanyl Citrate/Pf 100 Mcg/2 Ml Vial EPIDURAL ONCE PRN epidural Fentanyl Citrate 100 mcg 09/10/24 05:24 Fentanyl Citrate/Pf 100 Mcg/2 Ml Vial EPIDURAL ONCE PRN epidural Tranexamic Acid 1,000 mg/ 110 mls @ 440 mls/hr 09/10/24 05:24 Sodium Chloride IV 09/12/24 05:24 ONCE PRN Uterine Bleeding Sodium Chloride 1,000 mls @ 125 mls/hr 09/10/24 05:30 09/10/24 13:36 Sodium Chloride 0.9% 1,000 Ml IV 999 mls/hr .Q8H BEN Infusion Oxytocin/Sodium Chloride 10 units in 500 mls @ 6 mls/hr 09/10/24 05:30 09/10/24 13:00 Pitocin 10 Unit/500 Ml-Ns IV 12 milliunit/min TITR BEN 36 mls/hr Infusion Protocol 2 MILLIUNIT/MIN Oxytocin/Sodium Chloride 20 units in 1,000 mls @ 125 mls/hr 09/10/24 05:24 Pitocin 20 Unit/1,000 Ml-Ns IV Q8H PRN POST DELIVERY Ropivacaine/Sodium Chloride 400 mg in 200 mls @ 6 mls/hr 09/10/24 05:30 09/10/24 10:57 Naropin 0.2% 400 Mg/200 Ml Bag EPIDURAL 6 mls/hr Q24H BEN Administration Ibuprofen 600 mg 09/10/24 15:23 Ibuprofen 600 Mg Tablet PO Q6H PRN Moderate Pain Lidocaine 5 ml 09/10/24 05:24 Lidocaine Viscous 2% 15 Ml Solution TOPICAL 09/12/24 05:26 ONCE PRN Pain Lidocaine 1 ml 09/10/24 05:24 Lidocaine Hcl 1% 200 Mg/20 Ml Mdv INJ 09/12/24 05:26 ONCE PRN Pain Lidocaine 5 ml 09/10/24 05:24 Lidocaine Hcl 2% Pf 100 Mg/5 Ml Vial INJ 09/11/24 05:27 Q1H PRN Pain Measles/Mumps/Rubella Vaccine Live 0.5 ml 09/12/24 09:00 Measles,Mumps,Rubella Vacc/Pf 0.5 Ml Vial SQ 09/12/24 09:01 .ONCE ONE Methylergonovine Maleate 0.2 mg 09/10/24 05:24 Methylergonovine Maleate 0.2 Mg/Ml Ampule IM 09/12/24 05:24 ONCE PRN Uterine Contractility/Contract Methylergonovine Maleate 0.2 mg 09/10/24 05:24 Methylergonovine Maleate 0.2 Mg Tablet PO 09/12/24 05:24 Q4H PRN Uterine Contractility/Contract Misoprostol 600 mcg 09/10/24 05:24 Misoprostol 100 Mcg Tablet PO 09/12/24 05:24 ONCE PRN Uterine Bleeding Misoprostol 800 mcg 09/10/24 05:24 Misoprostol 100 Mcg Tablet SL 09/12/24 05:24 ONCE PRN Uterine Bleeding Misoprostol 1,000 mcg 09/10/24 05:24 Misoprostol 100 Mcg Tablet TN 09/12/24 05:24 ONCE PRN Uterine Bleeding Nalbuphine HCl 10 mg 09/10/24 05:24 Nalbuphine Hcl 10 Mg/Ml Ampule IV Q3H PRN Pain Naloxone HCl 0.4 mg 09/10/24 05:24 Naloxone Hcl 0.4 Mg/Ml Vial IV 09/11/24 05:27 ONCE PRN Opiate Reversal Ondansetron HCl 4 mg 09/10/24 05:24 Ondansetron Pf 4 Mg/2 Ml Vial IV Q6H PRN Nausea And Vomiting Ondansetron HCl 4 mg 09/10/24 05:24 Ondansetron 4 Mg Rapdis Tablet SL Q6H PRN Nausea And Vomiting Oxytocin 10 unit 09/10/24 05:24 Oxytocin 10 Unit/Ml Vial IM 09/12/24 05:24 ONCE PRN Bleeding Senna 17.2 mg 09/10/24 20:00 Sennosides 8.6 Mg Tablet PO QHS PRN Constipation Simethicone 80 mg 09/10/24 15:23 Simethicone 80 Mg Tab.Chew PO QID PRN Abdominal Distention Temazepam 15 mg 09/10/24 15:23 Temazepam 15 Mg Capsule PO QHS PRN Sleep Witch Keyla/Glycerin 1 pad 09/10/24 15:23 Glycerin/Witch Keyla Pads TOPICAL Q2H PRN Pain Diet Category Date Time Status Regular Consistency Diet Diet 09/10/24 15:23 Active Consults Category Date Time Status Consult to Anesthesiology Routine Cons 09/10/24 Ordered IV Insertion/Site Date of IV Line Insertion [20g 09/10/24 left Wrist] IV Insertion Time [20g left 05:44 Wrist] Neurology Patient orientation (short person,place,time,situation list) Respiratory Oxygen Delivery Method Room Air Oxygen Delivery Method Room Air Cardiology Heart Sounds Strong,Regular Bowels Bowel Pattern No Bowel Movement Renal Bladder Pattern Continent
[2024-09-10] MEDS: IBUPROFEN 600 MG TABLET PO (22:42)
[2024-09-10] MEDS: ACETAMINOPHEN 325 MG TABLET 650 MG PO (23:56)
[2024-09-11 06:39] LABS: Basophils Absolute Auto 0.1 10^3/uL (0.0-0.1); Basophils Percent Auto 0.4 % (0.2-2.0); Eosinophils Absolute Auto 0.2 10^3/uL (0.0-0.7); Eosinophils Percent Auto 1.8 % (0.9-7.0); Hematocrit 30.7 % (36.0-48.0); Hemoglobin 10.2 g/dL (12.0-16.0); Immature Granulocytes Abs Auto 0.09 10^3/uL (0.00-0.03); Immature Granulocytes Pct Auto 0.7 % (0.0-0.5); Lymphocytes Absolute Auto 3.1 10^3/uL (1.2-3.8); Mean Corpuscular HGB Conc 33.2 g/dL (29.9-35.2); Mean Corpuscular Hemoglobin 30.6 pg (26.7-34.0); Mean Corpuscular Volume 92.2 fL (81.0-99.0); Mean Platelet Volume 10.3 fL (9.5-13.5); Monocytes Absolute Auto 0.8 10^3/uL (0.3-0.8); Monocytes Percent Auto 6.1 % (1.7-12.0); Neutrophils Absolute Auto 9.2 10^3/uL (1.4-6.5); Platelet Count 210 10^3/uL (150-450); Red Blood Count 3.33 10^6/uL (4.20-5.40); Red Cell Distribution Width 12.9 % (11.0-15.0); White Blood Count 13.5 10^3/uL (4.0-11.0)
--- NOTE | 2024-09-11 08:13 | P.OBPN_ITS ---
OB - PN: Subj Subjective Patient comments: no complaints Camilla status: doing well feeding status: exclusively bottle feeding Exam Constitutional Vital Signs, click to edit/add: Last Vital Signs Temp 98.0 F 09/10/24 23:55 Pulse 76 09/10/24 23:55 Resp 16 09/10/24 23:55 BP 110/55 09/10/24 23:55 O2 Del Method Room Air 09/10/24 23:55 Documenting provider has reviewed patient's vital signs: yes Common normals: no apparent distress General appearance: cooperative Orientation/consciousness: Yes awake, Yes oriented to person, Yes oriented to place and Yes oriented to time HENMT Common normals: normocephalic Face and sinus: normal facial exam Eye Common normals: EOMs intact bilaterally Neck & C-Spine Common normals: full ROM Lymph Lymphatic: no lymphadenopathy noted Chest Common normals: inspection of chest normal Respiratory Common normals: normal respiratory effort Effort & inspection: able to speak in complete sentences Cardio Common normals: regular rate and regular rhythm Rhythm: regular rhythm GI Common normals: Normal to inspection, nondistended, normoactive bowel sounds present Palpation: soft Common normals: no CVA tenderness Back & Pelvis Common normals: no CVA tenderness Thoracic spine/upper back: normal to inspection Lumbar spine/lower back: normal to inspection Extremity Common normals: normal to inspection General: normal exam except as noted Neuro Common normals: oriented x3 Sensorium/orientation: awake, alert, oriented to person, oriented to place and oriented to time Psych Common normals: mental status grossly normal, thought process normal, cooperative, affect normal, speech normal, activity/motor behavior normal, denies hallucinations, denies homicidal ideation and denies suicidal ideation Appearance: grossly normal Attitude: calm Activity/motor behavior: appropriate eye contact Thought process: normal thought process Thought content: normal thought content Results Labs Labs: Short CBC 09/11/24 Range/Units 06:25 WBC 13.5 H (4.0-11.0) 10^3/uL Hgb 10.2 L (12.0-16.0) g/dL Hct 30.7 L (36.0-48.0) % Plt Count 210 (150-450) 10^3/uL Urinary Catheter Management Urinary Catheter Management Urethral: Cath placed during this visit: yes, but has since been removed by the nurse Insertion date: 09/10/24 Insertion time: 11:35 Removal date: 09/10/24 Removal time: 15:01 OB - PN: A/P Plan - Vaginal Delivery day: 1 Plan: discharge home Time Spent with Patient Time: Total time spent is greater than 50% in coordination of care (as documented) at patient's floor/unit and/or counseling patient: Total time spent with greater than 50% in coordination of care (as documented) at patient's floor/unit and/or counseling patient: less than 15 minutes
[2024-09-11 08:49] VITALS: BP 111/61; PULSE 79
[2024-09-11 08:50] VITALS: BP 111/61; PULSE 79; TEMP 36.8
[2024-09-11] MEDS: ACETAMINOPHEN 325 MG TABLET 650 MG PO (08:52)
[2024-09-11] MEDS: DOCUSATE SODIUM 100 MG CAPSULE PO (08:52)
[2024-09-11] MEDS: IBUPROFEN 600 MG TABLET PO (08:52)
[2024-09-11 17:13] VITALS: BP 117/58; PULSE 92
== END 2024-09-11 17:20 | disposition home or self-care (01) | DRG 807 ==
PROVIDERS: Admitting Provider Obstetrics & Gynecology; Visit Provider Obstetrics & Gynecology
DX: O69.81X0 Labor and delivery complicated by cord around neck, without compression, not applicable or unspecified (principal); Z37.0 Single live birth; Z3A.39 39 weeks gestation of pregnancy; O99.334 Smoking (tobacco) complicating childbirth; F17.210 Nicotine dependence, cigarettes, uncomplicated
CPT/HCPCS: 36415; 59050; 59410; 80307; 85025; 85027; 86850; 86900; 86901; J2795

== ENCOUNTER 2024-10-23 13:29 | Outpatient (OUT) | payer OTHER, SELFPAY | END 2024-10-23 13:30 | disposition home or self-care (01) | LOC: PST 13:30 | PROVIDERS: Visit Provider Obstetrics & Gynecology | DX: Z01.818 Encounter for other preprocedural examination (principal); Z30.2 Encounter for sterilization ==

== ENCOUNTER 2024-10-30 07:33 | Day surgery (SDC) | payer OTHER, SELFPAY ==
[2024-10-23 13:55] VITALS: BP 121/80; PULSE 83; TEMP 36.3; O2SAT 98; BMI 27.3
[2024-10-30] VITALS (10 sets, daily range): BP systolic 103–130; BP diastolic 63–87; PULSE 69–97; TEMP 35.8–36.6; O2SAT 95–98; BMI 27.3
--- OUTSIDE RECORDS SUMMARY | 2024-10-30 07:37 | XMS_ITS | CCD ---
Author Organization [facility] Care Team Providers Care Plunger Scoop Operator Name Role Phone THAO ., DR [...] DR NONE LISTED Primary Care Unavaila ble KEO, DR DOROTHY Garcia Consulting Unavailable THAO ., [...] PCP, NO PCP Primary Care Unavailable THAOROD R Referring Unavailable NO PCP, NO PCP Primary Care Unavailable Unavailable Primary Care Provider Unavailabl e BELLA OSUNAY Attending Unavailable TIERNEY WYNN Attending Unavailable ROD OSUNA Attending Unavailable ROD OSUNA Attending Unavailable THAOROD DHALIWAL Attending Unavailable KINGSLEY TIERNEY Attending Unavailable THAOROD Attending Unavailable KINGSLEY TIERNEY Attending Unavailable KINGSLEY TIERNEY Attending Unavailable ROD OSUNA Attending Unavailable Medications Current Medications Medication Drug Class(es) Dates Sig (Normalized) Sig (Original) [id number] 200 actuat albuterol 0.09 mg/actuat metered dose inhaler (1 source) beta2-Adrenergic Agonist Start: 10-05-2024 End: 10-05-2025 take 2 puff(s) by inhalation every four hours for wheezing albuterol HFA (Ventolin HFA) 90 mcg/act inhaler Indications: Mild intermittent asthma without complication (CMS/HCC) Inhale 2 puffs every 4 (four) hours if needed for wheezing 18 g 1 10/05/2024 10/05/2025 Active citalopram 20 mg oral tablet (1 source) Serotonin Reuptake Inhibitor Start: 10-05-2024 End: 10-05-2025 take 1 tablet by mouth once daily citalopram (CeleXA) 20 MG tablet Indications: depression (CMS/HCC) , anxiety Take 1 tablet (20 mg) by mouth Daily 30 tablet 11 10/05/2024 10/05/2025 Active Problems Active Problems Problem Classification Problem Date Documented Date Episodic/Chronic Asthma (2 sources) Mild intermittent asthma; Translations: [Mild intermittent asthma, uncomplicated] Onset: 10-05-2024 10-05-2024 Chronic Contraceptive and procreative management (2 sources) Sterilization requested; Translations: [Encounter for sterilization] Onset: 10-05-2024 10-05-2024 Episodic Menstrual disorders (6 sources) Irregular menstruation, unspecified; Translations: [IRREGULAR MENSTRUATION UNSPECIFIED] Onset: 07-20-2022 Chronic Miscellaneous mental health disorders (2 sources) depression; Translations: [ depression] Onset: 10-05-2024 10-05-2024 Episodic Other complications of (2 sources) size does not accord with dates; Translations: [Uterine size-date discrepancy, unspecified trimester] 07-02-2024 Episodic Other complications of (2 sources) Other mental disorders complicating the puerperium; Translations: [Mental disorders of mother, condition or complication] Onset: 10-05-2024 10-05-2024 Episodic Other screening for suspected conditions (not [...] of ] 06-16-2024 Episodic Residual codes; unclassified (2 sources) Gestation [...] sexually transmissible disorder] Onset: 09-01-2022 04-16-2024 Episodic Other and delivery including normal (20 sources) Encounter for supervision of normal , unspecified, unspecified trimester; Translations: [Encounter for supervision of other normal , first trimester] Onset: 07-20-2022 Resolved: 10-05-2024 Episodic Residual codes; unclassified (19 sources) Gestation period, 31 weeks; Translations: [31 weeks gestation of ] Onset: 07-22-2024 Resolved: 10-05-2024 07-22-2024 Episodic Results Test Name Value Interpretation Reference Range Facility ALL CBC WITH AUTO DIFFon BASOPHILS ABSOLUTE AUTO 0.1 [facility] Basophils/100 WBC (Bld) 0.4 % 0.2 - 2.0 % [facility] Eosinophils/100 WBC (Bld) 1.8 % 0.9 - 7.0 % [facility] Erythrocyte distribution width (RBC) [Ratio] 12.9 % 11.0 - 15.0 % [facility] Hematocrit (Bld) [Volume fraction] 30.7 % Low 36.0 - 48.0 % [facility] Hemoglobin (Bld) [Mass/Vol] 10.2 g/dL Low 12.0 - 16.0 g/dL [facility] IMMATURE GRANULOCYTES ABS AUTO 0.09 High [facility] Immature granulocytes/100 WBC (Bld) 0.7 % High 0.0 - 0.5 % [facility] Interpretation and review of laboratory results Abnormal [facility] LYMPHOCYTES ABSOLUTE AUTO 3.1 [facility] Lymphocytes/100 WBC (Bld) 23 % 20.5 - 60.0 % [facility] MCH (RBC) [Entitic mass] 30.6 pg 26.7 - 34.0 pg [facility] MCHC (RBC) [Mass/Vol] 33.2 g/dL 29.9 - 35.2 g/dL [facility] MCV (RBC) [Entitic vol] 92.2 fL 81.0 - 99.0 fL [facility] MONOCYTES ABSOLUTE AUTO 0.8 [facility] Monocytes/100 WBC (Bld) 6.1 % 1.7 - 12.0 % [facility] NEUTROPHILS ABSOLUTE AUTO 9.2 High [facility] Neutrophils/100 WBC (Bld) 68 % 43.0 - 75.0 % [facility] Platelet mean volume (Bld) [Entitic vol] 10.3 fL 9.5 - 13.5 fL [facility] EO # 0.2 [facility] PLT 210 [facility] RBC 3.33 Low [facility] WBC 13.5 High [facility] WITH [facility]ATELET NO DI FFERENTIALon 09-10-2024 Erythrocyte distribution width (RBC) [Ratio] 12.8 % 11.0 - 15.0 % [facility] Hematocrit (Bld) [Volume fraction] 33 % Low 36.0 - 48.0 % [facility] Hemoglobin (Bld) [Mass/Vol] 11.3 g/dL Low 12.0 - 16.0 g/dL [facility] Interpretation and review of laboratory results Abnormal [facility] MCH (RBC) [Entitic mass] 31.3 pg 26.7 - 34.0 pg [facility] MCHC (RBC) [Mass/Vol] 34.2 g/dL 29.9 - 35.2 g/dL [facility] MCV (RBC) [Entitic vol] 91.4 fL 81.0 - 99.0 fL [facility] Platelet mean volume (Bld) [Entitic vol] 10 fL 9.5 - 13.5 fL [facility] PLT 231 [facility] RBC 3.61 Low [facility] WBC 10.9 [facility] DRUG SCREEN RAPID (URINE )on 09-10-2024 AMPHETAMINE SCREEN URINE Negative NEGATIVE [facility] BARBITURATES SCREEN URINE Negative NEGATIVE [facility] BENZODIAZEPINES SCREEN URINE Negative NEGATIVE [facility] BUPRENORPHINE SCREEN URINE Negative NEGATIVE [facility] Comment on above: DRUG CLASS TEST SYST EM CUT-OFF CONCENTRATIONS ARE FOLLOWS: AMP (Amphetamine): 500 ng/mL BAR (Barbiturates): 200 ng/mL BZO (Benzodiazepines): 150 ng/mL BUP (Buprenorphine): 10 ng/mL SELMA (Cocaine): 150 ng/mL mAMP (Methamphetamine): 500 ng/mL MTD (Methadone): 200 ng/mL OPI (Opiates): 100 ng/mL OXY (Oxycodone): 100 ng/mL PCP (Phencyclidine): 25 ng/mL THC (Cannabinoids): 50 ng/mL TCA (Trycyclic Antidepressants): 300 ng/mL CANNABINOID SCREEN URINE Negative NEGATIVE [facility] COCAINE SCREEN URINE Negative NEGATIVE [facility] METHADONE SCREEN URINE Negative NEGATIVE [facility] METHAMPHETAMINES SCREEN URINE Negative NEGATIVE [facility] OPIATE SCREEN URINE Negative NEGATIVE [facility] OXYCODONE SCREEN URINE Negative NEGATIVE [facility] PHENCYCLIDINE SCREEN URINE Negative NEGATIVE [facility] TRICYCLIC ANTIDEPRESSANT URINE Negative NEGATIVE [facility] Urinalysis macro (dipstick) panel (U)on 09-08-2024 Bilirubin, UA Negative Negative - 4(70) +++ mg/dL [facility] Blood, UA Negative Negative - 50 Jl/mcL [facility] Clarity, UA Clear [facility] Color, UA Yellow [facility] Glucose, UA Negative Negative - 1999(110) ++++ mg/dL [facility] Interpretation and review of laboratory results Normal [facility] Ketones, UA Negative Negative - 160(16) ++++ mg/dL [facility] Leukocytes, UA Negative Negative - 500+++ Juan/mcL [facility] Nitrite, UA Negative Negative - Positive [facility] pH, UA 7 5 - 9 [facility] Protein, UA Negative Negative - 2000(20) ++++ mg/dL [facility] Spec Grav, UA 1.02 1 - 1.03 [facility] Urobilinogen, UA 0.2 0.2 - 12 mg/dL [facility] ALL MISCELLANEOUS TESTon MISCELLANEOUS TEST COMMENT . [facility] Comment on above: Test Ordered: [id number] Strep Gp B Culture+Rflx Strep Gp B Culture+Rflx Negative CB Reference Range: Negative Centers for Disease Control and Prevention (CDC) and [place] [employer]etric[employer] Gynecologists (ACOG) guidelines [...] resistance to clindamycin is noted. Performed at: [facility] [address] [id number] Manager Exchange: Warner Boles PhD, Phone: [phone] GROUP B STREP [id number] Group B Streptococcus Colonization Detection Culture With Re [facility] Urinalysis macro (dipstick) panel (U)on 08-24-2024 Bilirubin, UA Negative Negative - 4(70) +++ mg/dL [facility] Blood, UA Negative Negative - 50 Jl/mcL [facility] Clarity, UA Clear [facility] Color, UA Yellow [facility] Glucose, UA Negative Negative - 1999(110) ++++ mg/dL [facility] Interpretation and review of laboratory results Abnormal [facility] Ketones, UA Positive Negative - 160(16) ++++ mg/dL [facility] Comment on above: 15 mg Leukocytes, UA Trace Negative - 500+++ Juan/mcL [facility] Nitrite, UA Negative Negative - Positive [facility] pH, UA 6.5 5 - 9 [facility] Protein, UA Negative Negative - 1999(20) ++++ mg/dL [facility] Spec Grav, UA 1.02 1 - 1.03 [facility] Urobilinogen, UA 0.2 0.2 - 12 mg/dL [facility] Urinalysis macro (dipstick) panel (U)on 07-22-2024 Bilirubin, UA Negative Negative - 4(70) +++ mg/dL [facility] Blood, UA Negative Negative - 50 Jl/mcL [facility] Clarity, UA Clear [facility] Color, UA Yellow [facility] Glucose, UA Negative Negative - 2000(110) ++++ mg/dL [facility] Interpretation and review of laboratory results Abnormal [facility] Ketones, UA Negative Negative - 160(16) ++++ mg/dL [facility] Leukocytes, UA Few Negative - 500+++ Juan/mcL [facility] Comment on above: small Nitrite, UA Negative Negative - Positive [facility] pH, UA 6.4 5 - 9 [facility] Protein, UA Negative Negative - 1999(20) ++++ mg/dL [facility] Spec Grav, UA 1.02 1 - 1.03 [facility] Urobilinogen, UA 0.2 0.2 - 12 mg/dL [facility] Urinalysis macro (dipstick) panel (U)on 06-16-2024 Bilirubin, UA Negative Negative - 4(70) +++ mg/dL [facility] Blood, UA Negative Negative - 50 Jl/mcL [facility] Clarity, UA Clear [facility] Color, UA Yellow [facility] Glucose, UA Negative Negative - 1999(110) ++++ mg/dL [facility] Interpretation and review of laboratory results Normal [facility] Ketones, UA Negative Negative - 160(16) ++++ mg/dL [facility] Leukocytes, UA Negative Negative - 500+++ Juan/mcL [facility] Nitrite, UA Negative Negative - Positive [facility] pH, UA 6 5 - 9 [facility] Protein, UA Negative Negative - 1999(20) ++++ mg/dL [facility] Spec Grav, UA 1.03 1 - 1.03 [facility] Urobilinogen, UA 0.2 0.2 - 12 mg/dL [facility] GLUCOSE TOLERANCE 3 HOURon 1 GLUCOSE TOLERANCE 3 HOUR mg/dL [facility] Comment on above: GLU FAST 81 (<95) Co l: 06/11/24 0820 GLU 1HR 122 (<180) Col: 06/11/24 0820 GLU 2HR 101 (<155) Col: 06/11/24 1021 GLU 3HR 74 (<140) Col: 06/11/24 1120 [facility] ALL CBC WITH AUTO DIFFon BASOPHILS ABSOLUTE AUTO 0.1 [facility] Basophils/100 WBC (Bld) 0.4 % 0.2 - 2.0 % [facility] Eosinophils/100 WBC (Bld) 1.2 % 0.9 - 7.0 % [facility] Erythrocyte distribution width (RBC) [Ratio] 12 % 11.0 - 15.0 % [facility] Hematocrit (Bld) [Volume fraction] 35.7 % Low 36.0 - 48.0 % [facility] Hemoglobin (Bld) [Mass/Vol] 12 g/dL 12.0 - 16.0 g/dL [facility] IMMATURE GRANULOCYTES ABS AUTO 0.09 High [facility] Immature granulocytes/100 WBC (Bld) 0.8 % High 0.0 - 0.5 % [facility] Interpretation and review of laboratory results Abnormal [facility] LYMPHOCYTES ABSOLUTE AUTO 2.2 [facility] Lymphocytes/100 WBC (Bld) 18.7 % Low 20.5 - 60.0 % [facility] MCH (RBC) [Entitic mass] 31.5 pg 26.7 - 34.0 pg [facility] MCHC (RBC) [Mass/Vol] 33.6 g/dL 29.9 - 35.2 g/dL [facility] MCV (RBC) [Entitic vol] 93.7 fL 81.0 - 99.0 fL [facility] MONOCYTES ABSOLUTE AUTO 0.4 [facility] Monocytes/100 WBC (Bld) 3.6 % 1.7 - 12.0 % [facility] NEUTROPHILS ABSOLUTE AUTO 8.9 High [facility] Neutrophils/100 WBC (Bld) 75.3 % High 43.0 - 75.0 % [facility] Platelet mean volume (Bld) [Entitic vol] 10 fL 9.5 - 13.5 fL [facility] RBC 3.81 Low [facility] WBC 11.8 High [facility] Urinalysis macro (dipstick) panel (U)on 05-14-2024 Bilirubin, UA Negative Negative - 4(70) +++ mg/dL [facility] Blood, UA Negative Negative - 50 Jl/mcL [facility] Clarity, UA Clear [facility] Color, UA Yellow [facility] Glucose, UA Negative Negative - 2000(110) ++++ mg/dL [facility] Interpretation and review of laboratory results Normal [facility] Ketones, UA Negative Negative - 160(16) ++++ mg/dL [facility] Leukocytes, UA Negative Negative - 500+++ Juan/mcL [facility] Nitrite, UA Negative Negative - Positive [facility] pH, UA 6.5 5 - 9 [facility] Protein, UA Negative Negative - 1999(20) ++++ mg/dL [facility] Spec Grav, UA 1.025 1 - 1.03 [facility] Urobilinogen, UA 0.2 0.2 - 12 mg/dL [facility] IGP,APTIMA HPV,AGE GDLNon -2023 AGE GDLN ACOG TESTING Note . [facility] Comment on above: TESTS RESULT FLAG UN ITS REF RANGE LAB Clinician Provided Cytology Information Source.............Cervix No. of containers..01 ThinPrep Vial Age Algo ACOG Ira... -09 09 FLAG LEGEND: L-Low Normal,H-High Normal,LL-Alert Low,HH-Alert High <-Panic Low,>-Panic High,A-Abnormal,AA-Critical Abnormal Performed at: 01 =[facility] [address] [place] [address] Chiquita Camacho MD, IGP, RFX APTIMA HPV ASCU Note . [facility] Comment on above: TESTS RESULT FLAG UN ITS REF RANGE LAB DIAGNOSIS: 02 NEGATIVE FOR INTRAEPITHELIAL LESION OR MALIGNANCY. Specimen adequacy: 02 Satisfactory for evaluation. No endocervical component is identified. Performed by: 02 Judy Brush, Cnc Set Up Operator . 02 Note: Note 02 The Pap [...] <-Panic Low,>-Panic High,A-Abnormal,AA-Critical Abnormal Performed at: [address] [id number] Chiquita Camacho MD, Performed at: =G - [facility] [address] [id number] Manager Exchange: Chiquita Camacho MD, Phone: [phone] Performed at: [facility] [id number] Manager Exchange: Chiquita Camacho MD, Phone: [phone] SPATULA-ALONE CERVIX [facility] Urinalysis macro (dipstick) panel (U)on 04-16-2024 Bilirubin, UA Negative Negative - 4(70) +++ mg/dL [facility] Blood, UA Negative Negative - 50 Jl/mcL [facility] Clarity, UA Clear [facility] Color, UA Yellow [facility] Glucose, UA Negative Negative - 1999(110) ++++ mg/dL [facility] Interpretation and review of laboratory results Normal [facility] Ketones, UA Negative Negative - 160(16) ++++ mg/dL [facility] Leukocytes, UA Negative Negative - 500+++ Juan/mcL [facility] Nitrite, UA Negative Negative - Positive [facility] pH, UA 6.0 5 - 9 [facility] Protein, UA Negative Negative - 1999(20) ++++ mg/dL [facility] Spec Grav, UA 1.025 1 - 1.03 [facility] Urobilinogen, UA 0.2 0.2 - 12 mg/dL [facility] HCG.beta subunit IA 3rd IS Q non 01-24-2024 HCG.beta subunit Qn 7740 m[IU]/mL Normal [facility] Comment on above: Result [...] neoplasms. Performed By: #### 2 0415-6 #### [facility] ([id number]) [address], [address] [place] [address] US PREG ANATOMY SINGLEon US PREG ANATOMY [...] MARGAUX SANDERS Date: 2022-10-22 21:32 Normal [facility] CBC AUTO DIFFon 10-20-2022 BASO # 0.1 103/ul Normal 0.0-0.1 [facility] Comment on above: Performed By: #### C BC #### [facility] [address] [address] [address] Luis Edwards Basophils/100 WBC (Bld) 0.4 % Normal 0.2-2.0 [facility] Comment on above: Performed By: #### C BC #### [facility] [address] [address] [address] Luis Edwards EO # 0.3 103/ul Normal 0.0-0.7 [facility] Comment on above: Performed By: #### C BC #### [facility] [address] [address] [address] Luis Edwards Eosinophils/100 WBC (Bld) 1.7 % Normal 0.9-7.0 [facility] Comment on above: Performed By: #### C BC #### [facility] [address] [place] [address] Dr. Luis Edwards Erythrocyte distribution width (RBC) [Ratio] 13.1 % Normal 11.0-15.0 [facility] Comment on above: Performed By: #### C BC #### [facility] [address] [place] [address] Dr. Luis Edwards Hematocrit (Bld) [Volume fraction] 35.1 % Critically low 36.0-48.0 [facility] Comment on above: Performed By: #### C BC #### [facility] [address] [place] [address] Dr. Luis Edwards Hemoglobin (Bld) [Mass/Vol] 11.9 g/dL Critically low 12.0-16.0 [facility] Comment on above: Performed By: #### C BC #### [facility] [address] [place] [address] Dr. Luis Edwards IG # 0.17 10e3/ul Critically high 0.00-0.03 [facility] Comment on above: Performed By: #### C BC #### [facility] [address] [place] [address] Dr. Luis Edwards IG % 1.2 % Critically high 0.0-0.5 [facility] Comment on above: Performed By: #### C BC #### [facility] [address] [place] [address] Dr. Luis Edwards LYMPH # 2.3 103/ul Normal 1.2-3.8 [facility] Comment on above: Performed By: #### C BC #### [facility] [address] [place] [address] Dr. Luis Edwards Lymphocytes/100 WBC (Bld) 16.0 % Critically low 20.5-60.0 [facility] Comment on above: Performed By: #### C BC #### [facility] [address] [place] [address] Dr. Luis Edwards MANUAL DIFF REQ NO Normal [facility] Comment on above: Performed By: #### C BC #### [facility] [address] [place] [address] Dr. Luis Edwards MCH (RBC) [Entitic mass] 30.5 pg Normal 26.7-34.0 [facility] Comment on above: Performed By: #### C BC #### [facility] [address] [place] [address] Dr. Luis Edwards MCHC (RBC) [Mass/Vol] 33.9 g/dL Normal 29.9-35.2 [facility] Comment on above: Performed By: #### C BC #### [facility] [address] [place] [address] Dr. Luis Edwards MCV (RBC) [Entitic vol] 90.0 fL Normal 81.0-99.0 [facility] Comment on above: Performed By: #### C BC #### [facility] [address] [place] [address] Dr. Luis Edwards MONO # 0.6 103/ul Normal 0.3-0.8 [facility] Comment on above: Performed By: #### C BC #### [facility] [address] [place] [address] Dr. Luis Edwards Monocytes/100 WBC (Bld) 4.2 % Normal 1.7-12.0 [facility] Comment on above: Performed By: #### C BC #### [facility] [address] [place] [address] Dr. Luis Edwards NEUT # 11.2 103/ul Critically high 1.4-6.5 [facility] Comment on above: Performed By: #### C BC #### [facility] [address] [place] [address] Dr. Luis Edwards Neutrophils/100 WBC (Bld) 76.5 % Critically high 43.0-75.0 [facility] Comment on above: Performed By: #### C BC #### [facility] [address] [place] [address] Dr. Luis Edwards Platelet mean volume (Bld) [Entitic vol] 9.2 fL Critically low 9.5-13.5 [facility] Comment on above: Performed By: #### C BC #### [facility] [address] [address] [address] Luis Edwards PLT 247 103/ul Normal 150-450 [facility] Comment on above: Performed By: #### C BC #### [facility] [address] [address] [address] Luis Edwards RBC 3.90 106/ul Critically low 4.20-5.40 [facility] Comment on above: Performed By: #### C BC #### [facility] [address] [address] [address] Luis Edwards WBC 14.6 103/ul Critically high 4.0-11.0 [facility] Comment on above: Performed By: #### C BC #### [facility] [address] [address] [address] Luis Edwards GLUCOSE - 1HRon 10-20-2022 Glucose [Mass/Vol] 133 mg/dL Critically high 74-106 T [facility] Comment on above: Performed By: #### C BC #### [facility] [address] [place] [address] Dr. Luis Edwards PAP ACOG PANEL 2: 20 to 28on 08-31-2022 . . Normal [facility] Comment on above: Performed By: #### [id number] #### [facility] [address] [place] [address] Dr. Luis Edwards Age Gdln ACOG Testing 20- Normal [facility] Comment on above: Performed By: #### 4 [id number] #### [facility] [address] [place] [address] Dr. Luis Edwards DIAGNOSIS: Comment [facility] Comment on above: Result Comment: NEGA TIVE FOR INTRAEPITHELIAL LESION OR MALIGNANCY. PREDOMINANCE OF COCCOBACILLI CONSISTENT WITH SHIFT IN VAGINAL LUCRECIA IS PRESENT. Performed By: #### [id number] #### [facility] [address] [place] [address] Dr. Luis Edwards Methodology: Comment Normal [facility] Comment on above: Result Comment: This liquid based ThinPrep(R) pap test was screened with the use of an image guided system. Performed By: #### [id number] #### [facility] [address] [place] [address] Dr. Luis Edwards Note: Comment Normal [facility] Comment on above: Result Comment: The Pap smear is a screening test designed to aid in the detection of premalignant and malignant conditions of the uterine cervix. It is not a diagnostic procedure and should not be used as the sole means of detecting cervical cancer. Both false-positive and false-negative reports do occur. . Performed By: #### 4 [id number] #### [facility] [address] [place] [address] Dr. Luis Edwards Performed by: Comment Normal [facility] Comment on above: Result Comment: Braydon Munoz, Cnc Set Up Operator Performed By: #### [id number] #### [facility] [address] [place] [address] Dr. Luis Edwards Reflex Criteria: Comment Normal [facility] Comment on above: Result Comment: The HPV DNA reflex criteria were not met with this specimen result therefore, no HPV testing was performed. . Performed By: #### [id number] #### [facility] [address] [place] [address] Dr. Luis Edwards Specimen adequacy: Comment Normal [facility] Comment on above: Result Comment: Sati sfactory for evaluation. No endocervical component is identified. Performed By: #### [id number] #### [facility] [address] [place] [address] Dr. Luis Edwards CHLAMYDIA/GONOCOCCUS TIANNA (SW AB/URINE/PAPon 08-30-2022 Chlamydia trachomatis, TIANNA Negative Normal Negative [facility] Comment on above: Performed By: #### C T/NGNA #### [facility] [address] [place] [address] Dr. Luis Edwards Neisseria gonorrhoeae, TIANNA Negative Normal Negative [facility] Comment on above: Performed By: #### C T/NGNA #### [facility] [address] [place] [address] Dr. Luis Edwards VAGINITIS/VAGINOSIS DNA PROB Benjamin 08-29-2022 Viktoria species Negative Normal Negative [facility] Comment on above: Performed By: #### C BC #### [facility] [address] [place] [address] Dr. Luis Edwards Gardnerella vaginalis Positive Abnormal Negative [facility] Comment on above: Performed By: #### C BC #### [facility] [address] [place] [address] Dr. Luis Edwards Trichomonas vaginalis Negative Normal Negative [facility] Comment on above: Performed By: #### C BC #### [facility] [address] [place] [address] Dr. Luis Edwards HEPATITIS C VIRUS AB W/ REFL EX QUANTon 07-22-2022 HCV AB <0.1 Normal 0.0-0.9 [facility] Comment on above: Performed By: #### H CVPCRR #### [facility] [address] [place] [address] Dr. Luis Edwards Interpretation: Comment Normal [facility] Comment on above: Result Comment: Nega tive Not infected with HCV, unless recent infection is suspected or other evidence exists to indicate HCV infection. Performed By: #### H CVPCRR #### [facility] [address] [place] [address] Dr. Luis Edwards HEP B SURFACE ANTIGEN SCREEN on 07-21-2022 HBsAg Screen Negative Normal Negative [facility] Comment on above: Performed By: #### H BSANS #### [facility] [address] [place] [address] Dr. Luis Edwards HIV 1 AND 2 WITH REFLEXon HIV Screen 4th Generation wRfx Non-Reactive Normal Non Reactive [facility] Comment on above: Result Comment: HIV Negative HIV-1/HIV-2 antibodies and HIV-1 p24 antigen were NOT detected. There is no laboratory evidence of HIV infection. Performed By: #### C BC #### [facility] [address] [place] [address] Dr. Luis Edwards RPR QUANTon 07-21-2022 Rapid Plasma Reagin, Quant Non-Reactive Normal NonRea<1:1 [facility] Comment on above: Result Comment: Tarun helms Note: This test does not meet current guidelines for screening and diagnosis of syphilis. This test is intended for following treatment response in patients being treated for syphilis infection. To screen for syphilis infection, a reflex cascade that includes both RPR and a treponema-specific assay should be utilized, such as Treponema pallidum (Syphilis) Screening [place] (233492) or Rapid Plasma Reagin (RPR) Test With Reflex to Quantitative RPR and Confirmatory Treponema pallidum Antibodies (730440). Performed By: #### R PRQ #### [facility] [address] [place] [address] Dr. Lius Edwards RUBELLA AB IGGon 07-21-2022 Rubella Antibodies, IgG 1.57 index Normal Immune >0.99 [facility] Comment on above: Result Comment: Non- immune <0.90 Equivocal 0.90 - 0.99 Immune >0.99 Performed By: #### R UBIGG #### [facility] [address] [place] [address] Dr. Luis Edwards CBC AUTO DIFFon 07-20-2022 BASO # 0.1 103/ul Normal 0.0-0.1 [facility] Comment on above: Performed By: #### C BC #### [facility] [address] [place] [address] Dr. Luis Edwards Basophils/100 WBC (Bld) 0.6 % Normal 0.2-2.0 [facility] Comment on above: Performed By: #### C BC #### [facility] [address] [place] [address] Dr. Luis Edwards EO # 0.2 103/ul Normal 0.0-0.7 [facility] Comment on above: Performed By: #### C BC #### [facility] [address] [place] [address] Dr. Luis Edwards Eosinophils/100 WBC (Bld) 2.0 % Normal 0.9-7.0 [facility] Comment on above: Performed By: #### C BC #### [facility] [address] [place] [address] Dr. Luis Edwards Erythrocyte distribution width (RBC) [Ratio] 13.6 % Normal 11.0-15.0 [facility] Comment on above: Performed By: #### C BC #### [facility] [address] [place] [address] Dr. Luis Edwards Hematocrit (Bld) [Volume fraction] 35.6 % Critically low 36.0-48.0 [facility] Comment on above: Performed By: #### C BC #### [facility] [address] [place] [address] Dr. Luis Edwards Hemoglobin (Bld) [Mass/Vol] 11.8 g/dL Critically low 12.0-16.0 [facility] Comment on above: Performed By: #### C BC #### [facility] [address] [place] [address] Dr. Luis Edwards IG # 0.03 10e3/ul Normal 0.00-0.03 [facility] Comment on above: Performed By: #### C BC #### [facility] [address] [place] [address] Dr. Luis Edwards IG % 0.3 % Normal 0.0-0.5 [facility] Comment on above: Performed By: #### C BC #### [facility] [address] [place] [address] Dr. Luis Edwards LYMPH # 1.9 103/ul Normal 1.2-3.8 [facility] Comment on above: Performed By: #### C BC #### [facility] [address] [place] [address] Dr. Luis Edwards Lymphocytes/100 WBC (Bld) 21.0 % Normal 20.5-60.0 [facility] Comment on above: Performed By: #### C BC #### [facility] [address] [place] [address] Dr. Luis Edwards MANUAL DIFF REQ NO Normal [facility] Comment on above: Performed By: #### C BC #### [facility] [address] [place] [address] Dr. Luis Edwards MCH (RBC) [Entitic mass] 28.7 pg Normal 26.7-34.0 [facility] Comment on above: Performed By: #### C BC #### [facility] [address] [place] [address] Dr. Luis Edwards MCHC (RBC) [Mass/Vol] 33.1 g/dL Normal 29.9-35.2 [facility] Comment on above: Performed By: #### C BC #### [facility] [address] [place] [address] Dr. Luis Edwards MCV (RBC) [Entitic vol] 86.6 fL Normal 81.0-99.0 [facility] Comment on above: Performed By: #### C BC #### [facility] [address] [place] [address] Dr. Luis Edwards MONO # 0.4 103/ul Normal 0.3-0.8 [facility] Comment on above: Performed By: #### C BC #### [facility] [address] [place] [address] Dr. Luis Edwards Monocytes/100 WBC (Bld) 4.9 % Normal 1.7-12.0 [facility] Comment on above: Performed By: #### C BC #### [facility] [address] [place] [address] Dr. Luis Edwards NEUT # 6.3 103/ul Normal 1.4-6.5 [facility] Comment on above: Performed By: #### C BC #### [facility] [address] [place] [address] Dr. Luis Edwards Neutrophils/100 WBC (Bld) 71.2 % Normal 43.0-75.0 [facility] Comment on above: Performed By: #### C BC #### [facility] [address] [place] [address] Dr. Luis Edwards Platelet mean volume (Bld) [Entitic vol] 10.1 fL Normal 9.5-13.5 [facility] Comment on above: Performed By: #### C BC #### [facility] [address] [address] [address] Luis Edwards PLT 262 103/ul Normal 150-450 [facility] Comment on above: Performed By: #### C BC #### [facility] [address] [address] [address] Luis Edwards RBC 4.11 106/ul Critically low 4.20-5.40 [facility] Comment on above: Performed By: #### C BC #### [facility] [address] [place] [address] Dr. Luis Edwards WBC 8.8 103/ul Normal 4.0-11.0 [facility] Comment on above: Performed By: #### C BC #### [facility] [address] [place] [address] Dr. Luis Edwards CULTURE URINEon 07-20-2022 CULTURE URINE Culture Observations : NO GROWTH. Normal [facility] Comment on above: Performed By: #### C BC #### [facility] [address] [place] [address] Dr. Luis Edwards GLYCOHEMOGLOBIN A1Con 2021 ADA RECOMMENDATION SEE BELOW Normal [facility] Comment on above: Result Comment: ADA RECOMMENDED LIMIT 4.0 - 6.0 ADA THERAPEUTIC TARGET < 7.0 ACTION SUGGESTED > 7.0 Performed By: #### A 1C #### [facility] [address] [place] [address] Dr. Luis Edwards Glucose [Mass/Vol] 103 mg/dL Normal [facility] Comment on above: Performed By: #### A 1C #### [facility] [address] [place] [address] Dr. Luis Edwards HbA1c (Bld) [Mass fraction] 5.2 % Normal 4.5-6.2 [facility] Comment on above: Performed By: #### A 1C #### [facility] [address] [place] [address] Dr. Luis Edwards ZAKI BOX TEST PT SEND OUTo n 07-20-2022 SENT TO REF LAB 07/20/2022 Normal [facility] Comment on above: Performed By: #### N BOX #### [facility] [address] [place], [place] [address] Dr. Luis Edwards TYPE AND SCREENon 07-20-2022 TYPE AND SCREEN Negative Normal [facility] Comment on above: Performed By: #### C BC #### [facility] [address] [address] [address] Luis Edwards US PREG <14 WKSon [...] DOROTHY MCCULLOUGH Date: 2022-07-20 16:09 Normal [facility] Vital Signs Date Time Vital Sign Value Performing Clinician Faci lity 10-05-2024 13:18-0500 Body mass index (BMI) [Ratio] 28.09 kg/m2 [employer] [facility] Work Phone: [facility] 10-05-2024 13:18-0500 Body weight 76.57 kg [employer] Work Phone: [facility] 10-05-2024 13:18-0500 Diastolic blood pressure 74 mm[Hg] Rod Thao Sprinkle Work Phone: [facility] 10-05-2024 13:18-0500 Systolic blood pressure 112 mm[Hg] Rod Thao Sprinkle Work Phone: [facility] 09-08-2024 14:23-0500 Body mass index (BMI) [Ratio] 30.19 kg/m2 Tierney PRECIADO Work Phone: [facility] 09-08-2024 14:23-0500 Body weight 82.28 kg Tierney PRECIADO Work Phone: [facility] 09-08-2024 14:23-0500 Diastolic blood pressure 70 mm[Hg] Tierney PRECIADO Work Phone: [facility] 09-08-2024 14:23-0500 Systolic blood pressure 120 mm[Hg] Tierney PRECIADO Work Phone: [facility] 09-01-2024 14:10-0500 Body mass index (BMI) [Ratio] 30.09 kg/m2 Rod Thao DO Work Phone: [facility] 09-01-2024 14:10-0500 Body weight 82.01 kg Rod Thao DO Work Phone: [facility] 09-01-2024 14:10-0500 Diastolic blood pressure 70 mm[Hg] Rod Thao DO Work Phone: [facility] 09-01-2024 14:10-0500 Systolic blood pressure 120 mm[Hg] Rod Thao DO Work Phone: [facility] 08-24-2024 15:58-0500 Body mass index (BMI) [Ratio] 30.12 kg/m2 Rod Thao DO Work Phone: [facility] 08-24-2024 15:58-0500 Body weight 82.1 kg Rod Thao DO Work Phone: [facility] 08-24-2024 15:58-0500 Diastolic blood pressure 70 mm[Hg] Rod Thao DO Work Phone: [facility] 08-24-2024 15:58-0500 Systolic blood pressure 122 mm[Hg] Rod Thao DO Work Phone: [facility] 07-22-2024 14:20-0500 Body mass index (BMI) [Ratio] 29.79 kg/m2 Tierney PRECIADO Work Phone: [facility] 07-22-2024 14:20-0500 Body weight 81.19 kg Tierney PRECIADO Work Phone: [facility] 07-22-2024 14:20-0500 Diastolic blood pressure 68 mm[Hg] Tierney Point Marion PA Work Phone: [facility] 07-22-2024 14:20-0500 Systolic blood pressure 122 mm[Hg] Tierney Kingsley PA Work Phone: [facility] 07-02-2024 14:55-0500 Body mass index (BMI) [Ratio] 29.69 kg/m2 Tierney [employer] PA Work Phone: [facility] 07-02-2024 14:55-0500 Body weight 80.92 kg Tierney Kingsley PA Work Phone: [facility] 07-02-2024 14:55-0500 Diastolic blood pressure 62 mm[Hg] Tierney Kingsley PA Work Phone: [facility] 07-02-2024 14:55-0500 Systolic blood pressure 106 mm[Hg] Tierney Point [employer] PA Work Phone: [facility] 06-16-2024 14:58-0500 Body mass index (BMI) [Ratio] 28.96 kg/m2 Rod Thao DO Work Phone: [facility] 06-16-2024 14:58-0500 Body weight 78.93 kg Rod Thao DO Work Phone: [facility] 06-16-2024 14:58-0500 Diastolic blood pressure 62 mm[Hg] Rod Thao DO Work Phone: [facility] 06-16-2024 14:58-0500 Systolic blood pressure 114 mm[Hg] Rod Thao DO Work Phone: [facility] 05-14-2024 14:29-0400 Body mass index (BMI) [Ratio] 27.29 kg/m2 Tierney [employer] PA Work Phone: [facility] 05-14-2024 14:29-0400 Body weight 74.39 kg Tierney Kingsley PA Work Phone: [facility] 05-14-2024 14:29-0400 Diastolic blood pressure 64 mm[Hg] Tierney Point Marion PA Work Phone: [facility] 05-14-2024 14:29-0400 Systolic blood pressure 110 mm[Hg] Tierney Wynn PA Work Phone: [facility] 04-16-2024 12:25-0400 Body mass index (BMI) [Ratio] 27.29 kg/m2 Rod Thao DO Work Phone: [facility] 04-16-2024 12:25-040 Body weight 74.39 kg Rod Thao DO Work Phone: [facility] 04-16-2024 12:25-0400 Diastolic blood pressure 68 mm[Hg] Rod Thao DO Work Phone: [facility] 04-16-2024 12:25-0400 Systolic blood pressure 104 mm[Hg] Rod Thao DO Work Phone: [facility] Encounters Encounter Date Encounter Type Care Provider Facility Start: 10-05-2024 End: 10-05-2024 Bamboo flowsheet Rod Thao DO Work Phone: [facility] Start: 10-05-2024 End: 10-05-2024 Bamboo flowsheet Rod Thao DO Work Phone: [facility] Start: 10-05-2024 End: 10-05-2024 Office outpatient visit 15 minutes Rod Thao DO Work Phone: [facility] Comment on above: Pre-op examination; Request for sterilization; depression (CMS/HCC); anxiety; Mild intermittent asthma without complication (CMS/HCC) Start: 10-05-2024 End: 10-05-2024 Preprocedural examination done Rod Thao DO Work Phone: [facility] Start: 09-11-2024 End: 09-11-2024 Clinisync Result Encounter Rod Thao DO Work Phone: [facility] External Department Unsolicited Start: 09-11-2024 End: 09-11-2024 Clinisync Result Encounter Rod Thao DO Work Phone: [facility] External Department Unsolicited Start: 09-10-2024 End: 09-10-2024 Clinisync Result Encounter Rod Thao DO Work Phone: [facility] External Department Unsolicited Start: 09-10-2024 End: 09-10-2024 Clinisync Result Encounter Rod Thao DO Work Phone: [facility] External Department Unsolicited Start: 09-08-2024 End: 09-08-2024 flow sheet Tierney Wynn PA Work Phone: [facility] Comment on above: Third trimester preg olivia; 38 weeks gestation of Start: 09-08-2024 End: 09-08-2024 ambulatory TIERNEY WYNN Not Available Start: 09-08-2024 End: 09-08-2024 Bamboo flowsheet Tierney PRECIADO Work Phone: [facility] Start: 09-08-2024 End: 09-08-2024 Bamboo flowsheet Tierney Wynn PA Work Phone: [facility] Start: 09-01-2024 End: 09-01-2024 Bamboo flowsheet Rod Thao DO Work Phone: [facility] Start: 09-01-2024 End: 09-01-2024 Bamboo flowsheet Rod Thao DO Work Phone: [facility] Start: 09-01-2024 End: 09-01-2024 flow [...] PRECIADO Work Phone: [facility] Start: 06-29-2024 End: 10-05-2024 Telephone encounter Rod Thao DO Work Phone: [facility] [...] PA Work Phone: [facility] Start: 05-14-2024 [...] encounter procedure Rod Thao DO Work Phone: [facility] Start: 04-16-2024 End: 04-16-2024 flow sheet Rod Thao DO Work Phone: [facility] Comment on above: Well woman exam with routine gynecological exam; Second trimester ; Encounter for anatomic survey; Exposure to STD; Need for maternal serum alpha-protein (MSAFP) screening; Screening, , for anatomic survey Start: 04-16-2024 End: 04-16-2024 ambulatory ROD OSUNA Not Available Start: 03-06-2024 End: 03-06-2024 ambulatory [facility] Start: 02-21-2024 End: 02-21-2024 ambulatory ROD OSUNA Not Available Start: 01-24-2024 End: 01-24-2024 ambulatory ROD R [facility] Start: 01-09-2024 End: 01-09-2024 ambulatory ROD OSUNA Not Available Start: 12-09-2023 End: 12-09-2023 ambulatory ROD OSUNA Not Available Start: 10-20-2022 End: 10-21-[address] ROD OSUNA . Facility:[facility] Start: 08-27-2022 End: 08-27-[address] ROD OSUNA . Facility:[facility] Start: 07-20-2022 End: 07-21-[address] ROD OSUNA . Facility:[facility] Start: 07-20-2022 End: 07-21-[address] ROD OSUNA . Facility: Procedures Date Procedure Procedure Detail Performing Clinician Start: 09-11-2024 ALL CBC WITH AUTO DIFF Rod Thao DO Work Phone: Start: 09-10-2024 [facility] CBC WITH PLATEL ET NO DIFFERENTIAL Rod Thao DO Work Phone: Start: 09-10-2024 [facility] DRUG SCREEN RAPI D (URINE) Rod Thao DO Work Phone: Start: 09-08-2024 Urnls dip stick/tabl et rgnt [...] Start: 10-05-2024 End: 10-05-2024 Patient encounter procedure [facility] Comment on above: Arrived Start: 09-08-2024 End: 09-08-2024 Patient encounter procedure [facility] Comment on above: Arrived Start: 09-01-2024 End: 09-01-2024 Patient encounter procedure [facility] Comment on above: Arrived Start: 08-24-2024 End: 08-24-2024 Patient encounter procedure 08/24/2024 3:50 PM EST Routine [facility] [address] [facility] [place] [id number] Rod Osuna, DO [address] [place] [address] Arrived [facility] Comment on above: Arrived Start: 08-24-2024 End: 08-24-2025 CULTURE, GROUP B STREP WITH SUSCEPTIBLITY CULTURE, GROUP B STREP WITH SUSCEPTIBLITY Lab Routine Third trimester Expected: 08/24/2024, Expires: 08/24/2025 [facility] Work Phone: Comment on above: Expected: 08/24/2024 , Expires: 08/24/2025 Start: 08-06-2024 End: 08-06-2024 Patient encounter procedure 08/06/2024 9:50 AM EST Routine [facility] [address] [facility] [facility] [id number] Rod Osuna, DO [address] [place] [address] [facility] Start: 07-22-2024 End: 07-22-2024 Patient encounter procedure [facility] Comment on above: Arrived Start: 07-02-2024 End: 07-02-2024 Patient encounter procedure 07/02/2024 3:40 PM EST Routine [facility] [address] [facility] [facility] [id number] Tierney Wynn PA [address] [place], [place] [id number] [facility] Start: 07-02-2024 End: 07-02-2024 Patient encounter procedure 07/02/2024 2:20 PM EST Routine [facility] [address] [facility] [place] [id number] Tierney Wynn PA [address] [facility] [place] [address] Arrived [facility] Comment on above: Arrived Start: 07-02-2024 End: 07-02-2025 US for US OB SCAN FOR GROWTH Imaging Routine size inconsistent with dates Expected: 07/02/2024 (Approximate), Expires: 07/02/2025 [facility] Work Phone: Comment on above: Expected: 07/02/2024 (Approximate), Expires: 07/02/2025 Start: 06-16-2024 End: 06-16-2024 Patient encounter procedure [facility] Comment on above: Arrived Start: 05-14-2024 End: 05-14-2024 Patient encounter procedure [facility] Comment on above: Arrived Start: 05-14-2024 End: 05-14-2025 CBC panel - Blood by Automated count CBC Lab Routine Diabetes mellitus screening Expected: 05/14/2024 (Approximate), Expires: 05/14/2025 [facility] Work Phone: Comment on above: Expected: 05/14/2024 (Approximate), Expires: 05/14/2025 Start: 05-14-2024 End: 05-14-2025 Measurement of glucose 1 hour after glucose challenge for glucose tolerance test Glucose tolerance, 1 hour Lab Routine Diabetes mellitus screening Expected: 05/14/2024 (Approximate), Expires: 05/14/2025 [facility] Comment on above: Expected: 05/14/2024 (Approximate), Expires: 05/14/2025 Start: 04-16-2024 End: 05-16-2024 Alpha fetoprotein, maternal Alpha fetoprotein, maternal Lab Routine Need for maternal serum alpha-protein (MSAFP) screening Expected: 04/16/2024 (Approximate), Expires: 05/16/2024 [facility] Comment on above: Expected: 04/16/2024 (Approximate), Expires: 05/16/2024 Start: 04-16-2024 End: 04-16-2025 US for US OB ANATOMY SINGLE W US OB CERVICAL LENGTH Imaging Routine Screening, , for anatomic survey Expected: 04/16/2024 (Approximate), Expires: 04/16/2025 [facility] Comment on above: Expected: 04/16/2024 (Approximate), Expires: 04/16/2025 Start: 04-16-2024 End: 04-16-2024 Patient encounter procedure 04/16/2024 11:30 AM EDT Routine [facility] [address] [facility] [place] [address] Rod Osuna DO [address] [facility] [place] [address] Arrived [facility] Comment on above: Arrived CHLAMYDIA TRACHOMATI S (GENITO/STI) CHLAMYDIA TRACHOMATIS (GENITO/STI) Lab Routine Exposure to STD Ordered: 04/16/2024 [facility] Comment on above: Ordered: 04/16/2024 Cytology Cervical or vaginal smear or scraping study Pap Smear Pathology and Cytology Routine Well woman exam with routine gynecological exam Ordered: 04/16/2024 [facility] Comment on above: Ordered: 04/16/2024 Neisseria gonorrhoea e DNA [Presence] in Unspecified specimen by TIANNA with probe detection Neisseria gonorrhea DNA probe, direct Lab Routine Exposure to STD Ordered: 04/16/2024 [facility] Comment on above: Ordered: 04/16/2024 SURESWAB(R) ADVANCED VAGINITIS PLUS, TMA SURESWAB(R) ADVANCED VAGINITIS PLUS, TMA Pathology and Cytology Routine Exposure to STD Ordered: 04/16/2024 [facility] Work Phone: Comment on above: Ordered: 04/16/2024 Payers Date Payer Category Payer Private Health Insurance [id number] 2020 Medicaid [employer] [place] [id number] 2020-Present [address] [place] [address] [id number] 2020 Medicaid (Managed Care) [facility] MEDICAID [id number] 1994 Unknown [id number] 2.16.840.1.396256.3.579.2. 593 1994 Unknown [id number] 2.16.840.1.117545.3.579.2. 593 1994 Unknown [id number] 2.16.840.1.293147.3.579.2. 593 1994 Unknown [id number] 2.16.840.1.784873.3.579.2. 593 1994 Unknown [id number] 2.16.840.1.602193.3.579.2. 1286 1994 Unknown [id number] 2.16.840.1.310807.3.579.2. 1286 1994 Unknown [id number] 2.16.840.1.895872.3.579.2. 1259 1994 Unknown [id number] 2.16.840.1.997650.3.579.2. 1259 1994 Unknown [id number] 2.16.840.1.106389.3.579.2. 1259 1994 Unknown [id number] 2.16.840.1.165531.3.579.2. 1259 1994 Unknown [id number] 2.16.840.1.659704.3.579.2. 1259 1994 Unknown [id number] 2.16.840.1.351592.3.579.2. 9 1994 Unknown [id number] 2.16.840.1.703602.3.579.2. 9 1994 Unknown [id number] 2.16.840.1.322833.3.579.2. 1259 1994 Unknown [id number] 2.16.840.1.577323.3.579.2. 9 1994 Unknown [id number] 2.16.840.1.518842.3.579.2. 9 1994 Unknown [id number] 2.16.840.1.091913.3.579.2. 1259 1959 Self-pay [id number] 1959 Unknown [id number] 1959 Unknown [id number] Unknown [id number] 2.16.840.1.166195.3.579.2. 593 Social History Date Type Detail Facility Start: 01-19-2023 Tobacco smoking stat [facility] [facility] Never smoked tobacco [facility] Start: 01-19-2023 Tobacco use and exposure Smoke less tobacco non-user [facility] Start: 04-16-2024 End: 10-05-2024 Alcoholic beverage intake Lifetime non-drinker (finding) [facility] Start: 02-28-2023 End: 12-09-2023 History of Social function [facility] Start: 02-28-2023 End: 12-09-2023 Tobacco use panel [facility] Start: 12-26-2023 [facility] Start: 1995 Sex assigned at Not on file [facility] Clinical Notes 04-16-2024 to 10-05-2024 Sultana Eisenberg - 10/05/2024 1:10 PM ILANA Matta - 09/08/2024 2:20 PM Mary Davies LPN - 09/01/2024 2:00 PM Franck Acosta MA - 08/24/2024 3:50 PM EST Note Date & Type Note Facility 10-05-2024 History of Presen t illness Narrative Reason for Appointment: Patient ID: Lilo Kemp is a 29 y.o. female who presents for Pre-op Visit Patient presents today for Pre Op appointment. Patient is scheduled to undergo Da Jae assisted Bilateral Laparoscopic Salpingectomy on 10/30/[address] Osuna at [facility]. MEDICATIONS No current outpatient medications ALLERGIES No Known Allergies PROBLEMS Active Ambulatory Problems Diagnosis Date Noted anxiety 10/05/2024 depression (CMS/HCC) 10/05/2024 Resolved Ambulatory Problems Diagnosis Date Noted 31 weeks gestation of 07/22/2024 Third trimester 07/22/2024 Past Medical History: Diagnosis Date Anxiety HISTORY PAST MEDICAL HISTORY SOCIAL HISTORY Past [...] nursing note reviewed. Exam conducted with a furnace combination analyst present. Vitals: Estimated body mass index is 28.09 kg/m as calculated from the following: Height as of 12/09/23: 5' 5 . Weight as of this encounter: 168 lb 12.8 oz. BP: 112/74 Patient's last menstrual period was 12/12/2023. ASSESSMENT & PLAN ICD-10-CM 1. Pre-op examination Z01.818 2. Request for sterilization Z30.2 3. depression (CMS/HCC) F53.0 4. anxiety O99.345 F41.8 Post Follow Up: Patient is doing well but has complaints of mood changes. Patient presents today for 6 week visit. Patient is s/p Vaginal delivery. Patient voiced that she has not been on medication since before . Discussed Zurzuvae as a possibility. Discussed starting patient on other medication like Celexa. Patient aware that PA needs to be done prior to medication being sent to her. All options were discussed with the patient regarding control and patient desires permanent sterilization. Refills sent to patients pharmacy. Pre Op: Patient is doing well but has desire for sterilization. I have discussed conservative management vs. surgical management with the patient in detail and patient desires surgical management at this time. Patient has voiced understanding that a Bilateral Salpingectomy is considered to be permanent and patient will undergo Da Jae assisted Bilateral Laparoscopic Salpingectomy on 10/30/2024. Surgical consents were signed, mmc was reviewed, and patient is to proceed to [facility] OR. Follow Up: Patient is to follow up between 1-2 weeks post op to assess proper healing and recovery from procedure. Documented by Ashlee Sunshine LPN on behalf of: Rod Osuna DO documented in this encounter [facility] 09-08-2024 History of Presen t illness Narrative [...] routine OB appointment. documented in this encounter [facility] 09-01-2024 History of Presen t illness [...] nursing note reviewed. Exam conducted with a furnace combination analyst present. Vitals: Estimated body mass index is 30.09 kg/m as calculated from the following: Height as of 4/29/24: 5' 5 . Weight as of this [...] Rod Osuna DO documented in this encounter [facility] 08-24-2024 History of Presen t illness [...] nursing note reviewed. Exam conducted with a furnace combination analyst present. Vitals: Estimated body mass index is [...] Rod Osuna DO documented in this encounter [facility] 07-22-2024 History of Presen t illness [...] of: ILANA Rubio documented in this encounter [facility] 07-02-2024 History of Presen t illness [...] of: ILANA Rubio documented in this encounter [facility] 06-16-2024 History of Presen t illness [...] nursing note reviewed. Exam conducted with a furnace combination analyst present. Vitals: Estimated body mass index is [...] Rod Osuna DO documented in this encounter [facility] 05-14-2024 History of Presen t illness [...] of: ILANA Rubio documented in this encounter [facility] 04-16-2024 History of Presen t illness [...] nursing note reviewed. Exam conducted with a furnace combination analyst present. Vitals: Estimated body mass index is [...] [facility] Pre-op examination Request for sterilization depression (CMS/HCC) Mental disorders of mother, complicating , childbirth, or the puerperium, unspecified as to episode of care anxiety Mild intermittent asthma without complication (CMS/HCC) documented in this encounter [facility] Summary Purpose Family History No Family History Records FoundNo Family History Records FoundNo Family History Records Found Advance Directives No Advanced Directives Records FoundNo Advanced Directives Records FoundNo Advanced Directives Records Found Additional Source Comments INFORMATION SOURCE (unrecogn ized section and content) DATE CREATED AUTHOR 10/23/2022 [facility] DATE CREATED AUTHOR AUTHOR'S ORGANIZ ATION 03/07/2024 [facility] DATE CREATED AUTHOR AUTHOR'S VAISHALI CUBA 09/10/2024 [facility] EPIC Reason for Visit (unrecogniz ed section and content) Reason Comments Routine Visit Reason Comments Pre-op Visit FOR RECORDS PERTAINING TO PATIENTS WHO [...] BE BASED ON THE PRIMARY CLINICAL RECORDS. [employer] provides no warranty or guarantee of the accuracy or completeness of information in this document.
[2024-10-30 07:41] LABS: Basophils Absolute Auto 0.1 10^3/uL (0.0-0.1); Basophils Percent Auto 0.9 % (0.2-2.0); Eosinophils Absolute Auto 0.4 10^3/uL (0.0-0.7); Eosinophils Percent Auto 4.3 % (0.9-7.0); Hematocrit 42.5 % (36.0-48.0); Hemoglobin 14.4 g/dL (12.0-16.0); Immature Granulocytes Abs Auto 0.01 10^3/uL (0.00-0.03); Immature Granulocytes Pct Auto 0.1 % (0.0-0.5); Lymphocytes Absolute Auto 3.2 10^3/uL (1.2-3.8); Lymphocytes Percent Auto 39.8 % (20.5-60.0); Mean Corpuscular HGB Conc 33.9 g/dL (29.9-35.2); Mean Corpuscular Hemoglobin 30.6 pg (26.7-34.0); Mean Corpuscular Volume 90.2 fL (81.0-99.0); Mean Platelet Volume 10.1 fL (9.5-13.5); Monocytes Absolute Auto 0.6 10^3/uL (0.3-0.8); Monocytes Percent Auto 7.1 % (1.7-12.0); Neutrophils Absolute Auto 3.9 10^3/uL (1.4-6.5); Neutrophils Percent Auto 47.8 % (43.0-75.0); Platelet Count 262 10^3/uL (150-450); Red Blood Count 4.71 10^6/uL (4.20-5.40); Red Cell Distribution Width 12.2 % (11.0-15.0); White Blood Count 8.1 10^3/uL (4.0-11.0)
[2024-10-30 08:01] LABS: HCG Quantitative <1 mIU/mL
[2024-10-30] MEDS: LACTATED RINGER'S SOLUTION 1,000 ML 50 ML IV (08:07)
[2024-10-30] MEDS: ALBUTEROL SULFATE 2.5 MG/3 ML VIAL NEB IH (08:15)
[2024-10-30] MEDS: LACTATED RINGER'S SOLUTION 1,000 ML 1000 ML IV (10:14)
--- NOTE | 2024-10-30 10:16 | P.ON_ITS ---
Brief Operative Note Date of procedure: 10/30/24 Pre-op diagnosis general: desires permenant sterilization Post-op diagnosis: same as pre-op Procedure: NAME OF PROCEDURE: robotic assisted bilateral laparoscopic salpingectomy PROCEDURE: The patient was taken back to the Operating Room where she was given general anesthesia without difficulty. She was then prepped and draped in the normal sterile fashion after being placed in a dorsal lithotomy position. A wet sponge stick was placed into the patient's vagina. Attention was then turned to the patient's abdomen, where a scalpel was used to make a small infraumbilical incision. The S retractors were then used to dissect the underlying layers until the fascia could be seen. The fascia was then grasped with Nick clamps and tented up. A knife was then used to make a small incision to the fascia. The muscle was identified, at that time two sutures of #0 Vicryl on a GI needle was then used and placed through the fascia. the peritoneum was then identified and entered bluntly. The 10-4 Raisa was then placed into the patient's abdomen. This was confirmed with direct visualization of the bowel, using the laparoscope. The patient's abdomen was then insufflated using approximately 4 liters of CO2 gas. Survey of the patient's abdomen demonstrated ovaries were normal in appearance as well as both tubes and uterus. A second and third rt and lt lateral robotic ports which were 8 mm in size, was then placed after the skin incision was made under direct visualization . the robotic arms were engaged. The patient's tube on the patient's right side was identified and tented up using a grasper, the ligasure apparatus was then used to come across the mesosalpingx from the fimbriated end to the insertion site at the uterus, the tube was then amputated and removed in its entirety. This was done on the contralateral side. The tubes were the removed from the patients abdomen. Excellent hemostasis was noted. The lateral ports were then moved under direct visualization with excellent hemostasis. All instruments were removed from the patient's abdomen. The fascia was closed using the #0 Vicryl on GI needle. The skin was closed using 4-0 Vicryl subcuticularly. All instruments were removed from the patient's vagina as well. The patient was taken out of the dorsal lithotomy position and placed in the supine position and taken to recovery in stable condition. Sponge, lap and needle counts were correct x2. Anesthesia: GETA Surgeon: Jesse Osuna Follow Up Specialist: Adele Iyer Estimated blood loss (mL): 5 Pathology: other (tubes) Condition: stable Disposition: PACU Urinary Catheter Management Urinary Catheter Management Urethral: Cath placed during this visit: no
--- NOTE | 2024-10-30 11:56 | PC.NURSE ---
Denies urge to void
--- NOTE | 2024-10-30 12:37 | PC.NURSE ---
patient denied pain at discharge
== END 2024-10-30 12:30 | disposition home or self-care (01) ==
PROVIDERS: Visit Provider Obstetrics & Gynecology
PROC: (CPT 840; principal; 2024-10-30 08:50)
DX: Z30.2 Encounter for sterilization (principal); J45.20 Mild intermittent asthma, uncomplicated; F17.210 Nicotine dependence, cigarettes, uncomplicated
CPT/HCPCS: 58661; 36415; 84702; 85025; 88302; 94640; J1100; J1171; J1885; J2175; J2250; J2405; J2704; J3010